=== PATIENT | female | born 1965 | race Caucasian/White ===

== ENCOUNTER → 2017-11-20 | Outpatient (CLI) | payer OTHER, SELFPAY | PROVIDERS: Visit Provider Nurse Practitioner Family | DX: Z79.899 Other long term (current) drug therapy (principal) | CPT/HCPCS: 80305 ==

== ENCOUNTER 2017-11-21 11:00 | Outpatient (RCR) | payer OTHER, SELFPAY | END 2017-11-21 23:59 | LOC: OT 11:00 | PROVIDERS: PCP Nurse Practitioner Family; Visit Provider Orthopaedic Surgery | DX: S46.311A Strain of muscle, fascia and tendon of triceps, right arm, initial encounter (principal); M65.341 Trigger finger, right ring finger; G56.01 Carpal tunnel syndrome, right upper limb | CPT/HCPCS: 97014; 97033; 97110; 97165; G0283 ==

== ENCOUNTER 2017-11-28 10:13 | Outpatient (RCR) | payer OTHER, SELFPAY | END 2017-11-28 23:59 | LOC: OT 10:13 | PROVIDERS: PCP Nurse Practitioner Family; Visit Provider Orthopaedic Surgery | DX: S46.311A Strain of muscle, fascia and tendon of triceps, right arm, initial encounter (principal); M65.341 Trigger finger, right ring finger; G56.01 Carpal tunnel syndrome, right upper limb ==

== ENCOUNTER → 2017-12-19 09:48 | Outpatient (CLI) | payer OTHER, SELFPAY | PROVIDERS: Visit Provider Nurse Practitioner Family | DX: N39.0 Urinary tract infection, site not specified (principal); R30.0 Dysuria | CPT/HCPCS: 87086 ==

== ENCOUNTER → 2017-12-20 09:48 | Outpatient (REF) | payer OTHER, SELFPAY | LOC: LAB 09:48 | PROVIDERS: Visit Provider Nurse Practitioner Family | DX: N39.0 Urinary tract infection, site not specified (principal) ==

== ENCOUNTER 2018-01-06 14:34 | Emergency (ER) | payer OTHER, SELFPAY ==
[2018-01-06 14:51] VITALS: BP 148/81; PULSE 72; RESP 20; TEMP 36.9; O2SAT 98; BMI 34.7
[2018-01-06 14:57] LABS: Apearance,Urine Clear (Clear); Color,Urine Yellow (Yellow); PH,Urine 5.5 (5.0-8.5)
[2018-01-06 14:58] LABS: Bilirubin,Urine Negative (Negative); Blood, Urine Negative (Negative); Glucose,Urine (UA) Negative (Negative); Ketones,Urine Negative (Negative); Protein,Urine Negative (Negative); UTC Leukocyte Esterase,Urine 1+ (Negative); UTC Nitrate,Urine Negative (Negative); Urobilinogen,Urine 0.2 EU/dl (0.2)
--- NOTE | 2018-01-06 15:12 | HMH.EDUTC ---
[facility] [place] Impression: UTI (urinary tract infection) Qualifiers: Urinary tract infection type: site unspecified Disposition: Home, Self-Care Condition on Discharge: Good Instructions: Urinary Tract Infection, DI for Urinary Tract Infection (UTI) Additional Instructions: Drink plenty of water and fluids Follow up with family doctor if no improvement or worsening of symptoms Return if needed If pain returns, fever greater than 102.0 or symptoms worsen go straight to ER Prescriptions: Phenazopyridine HCl [Pyridium] 100 mg PO TID #6 tab Sulfamethoxazole/Trimethoprim [Bactrim DS tablet] 1 each PO BID #20 tab Referrals: Neto Ferraro MD [Primary Care Provider] - Time of Disposition: 15:25 Medical Decision Making - Medical Records Medical records reviewed: Yes: I reviewed the patient's medical records. Vital Signs: 01/06/18 14:51 Temperature 98.4 F Temperature Source Temporal Artery Scan Pulse Rate [Right] 72 Respiratory Rate 20 Blood Pressure [Right Arm] 148/81 Blood Pressure Mean [Right Arm] 103 Blood Pressure Source [Right Arm] Automatic Cuff Blood Pressure Position [Right Arm] Sitting 02 Sat by Pulse Oximetry 98 Oxygen Delivery Method Room Air - Lab Data Lab Results 01/06/18 14:56: Urine Color Yellow, Urine Appearance Clear, Urine pH 5.5, Ur Specific [place] 1.010, Urine Protein Negative, Urine Glucose (UA) Negative, Urine Ketones Negative, Urine Blood Negative, Urine Nitrate Negative, Urine Bilirubin Negative, Urine Urobilinogen 0.2, Ur Leukocyte Esterase 1+ A - Robby Inquiry Pt receiving controlled substance: No Robby was queried for this patient: No [facility] [place] - General Stated complaint: left side and lower back pain,no ao Mode of Arrival: Ambulatory Source of Information: Patient Limitations: No Limitations Description of Symptoms (Recalled from Triage Doc. by RN): LEFT FLANK PAIN, NAUSEA X4 DAYS HEENT Symptoms (Recalled from RN notes): No Resp Symptoms (Recalled from RN notes): No Skin Symptoms (Recalled from RN notes): No MS Symptoms (Recalled from RN notes): No Functional Status (Recalled from RN notes): N - History of Present Illness Provider Complaint: Patient state that she was seen and treated 2 weeks ago for UTI but feels like she has not really got rid of it State that after she finished medication pain returned in left flank area and she is having burning again with urination State that she feels just like she did when she got diagnosed with UTI - Related Data Home Medications Medication Instructions Recorded Confirmed albuterol sulfate HFA 90 1 puff INHALATION Q6H 12/03/17 mcg/actuation aerosol inhaler aspirin 81 mg tablet,delayed 81 mg PO QDAY 12/03/17 release atorvastatin 40 mg tablet 40 mg PO QDAY 12/03/17 celecoxib 200 mg capsule 200 mg PO QDAY 12/03/17 diltiazem ER 240 mg capsule,24 240 mg PO ONCE 12/03/17 hr,extended release duloxetine 20 mg capsule,delayed 20 mg PO BID 12/03/17 release fluticasone 50 mcg/actuation nasal 50 mcg INTRANASAL ONCE 12/03/17 spray,suspension furosemide 20 mg tablet 20 mg PO BID tab 12/03/17 hydrochlorothiazide 25 mg tablet 25 mg PO BID tab 12/03/17 linaclotide 290 mcg capsule 290 mcg PO QDAY 12/03/17 lisinopril 20 mg tablet 20 mg PO QDAY 12/03/17 metoprolol tartrate 50 mg tablet 50 mg PO BID 12/03/17 omeprazole 40 mg capsule,delayed 40 mg PO BID cap 12/03/17 release spironolactone 25 mg tablet 25 mg PO BID 12/03/17 Previous Rx's Medication Instructions Recorded gabapentin 300 mg capsule 600 mg PO BID #60 cap 12/19/17 Phenazopyridine HCl [Pyridium] 100 mg PO TID #6 tab 01/06/18 Sulfamethoxazole/Trimethoprim 1 each PO BID #20 tab 01/06/18 [Bactrim DS tablet] Allergies Allergy/AdvReac Type Severity Reaction Status Date / Time ciprofloxacin [From [facility]] Allergy Unknown HIVES/RASH Verified 01/06/18 14:57 - Worker's Comp Is this a Worker's Comp case?: No
--- NOTE | 2018-01-06 15:21 | ED_ITS ---
[facility] [place] Impression: UTI (urinary tract infection) Qualifiers: Urinary tract infection type: site unspecified Disposition: Home, Self-Care Condition on Discharge: Good Instructions: Urinary Tract Infection, DI for Urinary Tract Infection (UTI) Additional Instructions: Drink plenty of water and fluids Follow up with family doctor if no improvement or worsening of symptoms Return if needed If pain returns, fever greater than 102.0 or symptoms worsen go straight to ER Prescriptions: Phenazopyridine HCl [Pyridium] 100 mg PO TID #6 tab Sulfamethoxazole/Trimethoprim [Bactrim DS tablet] 1 each PO BID #20 tab Referrals: Neto Ferraro MD [Primary Care Provider] - Time of Disposition: 15:25 Medical Decision Making - Medical Records Medical records reviewed: Yes: I reviewed the patient's medical records. Vital Signs: 01/06/18 14:51 Temperature 98.4 F Temperature Source Temporal Artery Scan Pulse Rate [Right] 72 Respiratory Rate 20 Blood Pressure [Right Arm] 148/81 Blood Pressure Mean [Right Arm] 103 Blood Pressure Source [Right Arm] Automatic Cuff Blood Pressure Position [Right Arm] Sitting 02 Sat by Pulse Oximetry 98 Oxygen Delivery Method Room Air - Lab Data Lab Results 01/06/18 14:56: Urine Color Yellow, Urine Appearance Clear, Urine pH 5.5, Ur Specific [place] 1.010, Urine Protein Negative, Urine Glucose (UA) Negative, Urine Ketones Negative, Urine Blood Negative, Urine Nitrate Negative, Urine Bilirubin Negative, Urine Urobilinogen 0.2, Ur Leukocyte Esterase 1+ A - Robby Inquiry Pt receiving controlled substance: No Robby was queried for this patient: No [facility] [place] - General Stated complaint: left side and lower back pain,no ao Mode of Arrival: Ambulatory Source of Information: Patient Limitations: No Limitations Description of Symptoms (Recalled from Triage Doc. by RN): LEFT FLANK PAIN, NAUSEA X4 DAYS HEENT Symptoms (Recalled from RN notes): No Resp Symptoms (Recalled from RN notes): No Skin Symptoms (Recalled from RN notes): No MS Symptoms (Recalled from RN notes): No Functional Status (Recalled from RN notes): N - History of Present Illness Provider Complaint: Patient state that she was seen and treated 2 weeks ago for UTI but feels like she has not really got rid of it State that after she finished medication pain returned in left flank area and she is having burning again with urination State that she feels just like she did when she got diagnosed with UTI - Related Data Home Medications Medication Instructions Recorded Confirmed albuterol sulfate HFA 90 1 puff INHALATION Q6H 12/03/17 mcg/actuation aerosol inhaler aspirin 81 mg tablet,delayed 81 mg PO QDAY 12/03/17 release atorvastatin 40 mg tablet 40 mg PO QDAY 12/03/17 celecoxib 200 mg capsule 200 mg PO QDAY 12/03/17 diltiazem ER 240 mg capsule,24 240 mg PO ONCE 12/03/17 hr,extended release duloxetine 20 mg capsule,delayed 20 mg PO BID 12/03/17 release fluticasone 50 mcg/actuation nasal 50 mcg INTRANASAL ONCE 12/03/17 spray,suspension furosemide 20 mg tablet 20 mg PO BID tab 12/03/17 hydrochlorothiazide 25 mg tablet 25 mg PO BID tab 12/03/17 linaclotide 290 mcg capsule 290 mcg PO QDAY 12/03/17 lisinopril 20 mg tablet 20 mg PO QDAY 12/03/17 metoprolol tartrate 50 mg tablet
[2018-01-06 15:44] VITALS: BP 148/81; PULSE 72; RESP 20; TEMP 36.9
== END 2018-01-06 15:45 | disposition home or self-care (01) ==
PROVIDERS: Emergency Provider Nurse Practitioner; Family Provider Internal Medicine; PCP Emergency Medicine
DX: N39.0 Urinary tract infection, site not specified (principal)
CPT/HCPCS: 81003; 99201

== ENCOUNTER 2018-01-13 14:21 | Emergency (ER) | payer OTHER, SELFPAY ==
[2018-01-13 14:22] VITALS: BP 150/84; PULSE 70; RESP 20; TEMP 36.8; O2SAT 97; BMI 33.3
--- NOTE | 2018-01-13 14:29 | XR_ITS ---
XR chest portable HISTORY: ITS.REASON: Chest Pain ORDERING PHYSICIAN: James Luna MD PATIENT AGE: 52 years COMPARISON: 08/27/2017 FINDINGS: The cardiomediastinal silhouette and pulmonary vascularity are within normal limits. The lungs are clear without infiltrates, suspicious nodules, or pleural effusions. No acute bony abnormalities. IMPRESSION: Negative chest, no acute finding
[2018-01-13 14:48] LABS: Basophils # 0.1 K/mm3 (0-0.2); Basophils % 0.7 % (0.1-2.0); Eosinophils # 0.2 K/mm3 (0.0-0.4); Eosinophils % 2.2 % (0.1-12.0); Hematocrit 43.3 % (37.0-47.0); Hemoglobin 14.5 g/dL (12.2-16.2); Lymphocytes # 2.4 K/mm3 (0.7-4.5); Lymphocytes % 31.6 K/mm3 (10-50); Mean Corpuscular HGB Conc 33.5 g/dL (31.8-35.4); Mean Corpuscular Hemoglobin 27.7 pg (27.0-31.2); Mean Corpuscular Volume 82.7 fl (81-99); Mean Platelet Volume 8.5 fl (7.4-10.4); Monocytes # 0.3 K/mm3 (0.1-1.0); Monocytes % 4.4 % (1.7-9.3); Neutrophils # 4.7 K/mm3 (1.8-7.8); Neutrophils % 61.1 % (37.0-80.0); Platelet Count 250 K/mm3 (142-424); Red Blood Count 5.24 M/mm3 (4.20-5.40); Red Cell Distribution Width 13.1 % (11.5-17.5); White Blood Count 7.7 K/mm3 (4.8-10.8)
--- NOTE | 2018-01-13 15:15 | HMH.EDGENADL ---
ED Disposition Clinical Impression: Chest pain Disposition: Admitted As Inpatient Condition on Discharge: Good Referrals: Neto Ferraro MD [Primary Care Provider] - - Critical Care Critical Care Time: No Attestation: On 01/13/18, the high probability of a clinically significant, sudden or life threatening deterioration of the following system(s) required my full and direct attention, intervention and personal management. The time I documented below is in addition to time spent performing reported procedures but includes the following listed in this critical care notation. Medical Decision Making - Medical Records MR Comment: [id number] taking the medical records patient has not had very many visits here with chest pain I discussed with her she states she is diabetic hypertensive hyperlipidemia obese and smokes. She did have a history of angiograms did have some blockage that was not amenable to treatment she denies any stenting she thinks this may have been just over 2 years ago. She states the breathing treatment helped her somewhat that she still has chest pressure have ordered some aspirin and nitroglycerin here and call out to Dr. Bills. It is a patient of Dr. Ferraro's as well Sanju does have a follow-up visit scheduled with her for some labs and testing. call out to Sanju. [phone] call out to Ronan. 1740 salma Stratton. Vital Signs: 01/13/18 14:22 01/13/18 15:57 Temperature 98.2 F Temperature Source Oral Pulse Rate 66 Pulse Rate [Right Radial] 70 Respiratory Rate 20 Blood Pressure [Right Arm] 150/84 Blood Pressure Mean [Right Arm] 106 Blood Pressure Source [Right Arm] Automatic Cuff Blood Pressure Position [Right Arm] Sitting 02 Sat by Pulse Oximetry 97 Oxygen Delivery Method Room Air - Lab Data Lab Results 01/13/18 14:35: WBC 7.7, RBC 5.24, Hgb 14.5, Hct 43.3, MCV 82.7, MCH 27.7, MCHC 33.5, RDW 13.1, Plt Count 250, MPV 8.5, Neut % (Auto) 61.1, Lymph % (Auto) 31.6, [place] % (Auto) 4.4, Eos % (Auto) 2.2, Baso % (Auto) 0.7, Neut # (Auto) 4.7, Lymph # (Auto) 2.4, [place] # (Auto) 0.3, Eos # (Auto) 0.2, Baso # (Auto) 0.1 01/13/18 14:35: Sodium 137, Potassium 4.0, Chloride 100, Carbon Dioxide 26, Anion Gap 15.0, BUN 14, Creatinine 1.12 H, Estimated Creat Clear 85, Estimated GFR 51 L, Est GFR ( Amer) 62, Glucose 135 H, Calcium 9.4, Total Bilirubin 0.4, AST 8 L, ALT 28, Alkaline Phosphatase 101, Total Creatine Kinase 68, CK-MB (CK-2) < 0.5, CK-MB (CK-2) Rel Index 0.7, Troponin I < 0.02, Total Protein 7.9, Albumin 3.9, Globulin 4.0 H, Albumin/Globulin Ratio 1.0 L 01/13/18 : B-Natriuretic Peptide < 5 Result diagrams: 01/13/18 14:35 01/13/18 14:35 Orders (Tests/Meds): ED MEDICATIONS Generic Name Dose Route Start Last Admin Trade Name Freq PRN Reason Stop Dose Admin Acetaminophen 650 mg 01/13/18 17:37 Acetaminophen 325mg Tab PO 02/12/18 17:36 Q4HP PRN As Needed for Fever or Pain Sodium Chloride 1,000 mls @ 50 mls/hr 01/13/18 17:45 Sod Chlor 0.9% 1000ml Bag IV 02/12/18 17:44 .Q20H BETSY Morphine Sulfate 4 mg 01/13/18 17:37 Morphine 2mg/Ml Syringe IV 02/12/18 17:36 Q4HP PRN Pain Nitroglycerin 0.4 mg 01/13/18 17:08 Nitrostat 0.4mg Sl Tablet SL 02/12/18 17:07 Q5MINP PRN Chest Pain Ondansetron HCl 4 mg 01/13/18 17:37 Zofran 4mg/2ml Vial IV 02/12/18 17:36 Q8HP PRN Nausea Discontinued Medications Generic Name Dose Route Start Last Admin Trade Name Freq PRN Reason Stop Dose Admin Albuterol/Ipratropium 3 ml 01/13/18 15:18 01/13/18 15:56 Duoneb 3ml Neb IH 01/13/18 15:19 3 ml ONCE ONE Administration Aspirin 324 mg 01/13/18 17:08 01/13/18 17:14 Aspirin 81mg Chewable Tablet PO 01/13/18 17:09 243 mg ONCE ONE Administration ORDERS Category Date Time Status Basic Metabolic Panel [facility] Lab 01/14/18 06:00 Ordered Complete Blood Count Auto Diff AMLAB Lab 01/14/18 0
[2018-01-13 15:18] LABS: Alanine Aminotransferase 28 U/L (12-78); Albumin Level 3.9 gm/dL (3.4-5.0); Alkaline Phosphatase 101 U/L (46-116); Aspartate Amino Transferase 8 U/L (15-37); Bilirubin,Total 0.4 mg/dL (0.2-1.0); Blood Urea Nitrogen 14 mg/dL (7-18); CKMB Relative Index 0.7 U/L (0-4.0); Calcium 9.4 mg/dL (8.5-10.1); Carbon Dioxide 26 mmol/L (21.0-32.0); Chloride 100 mmol/L (98-107); Creatine Kinase 68 U/L (26-192); Creatine Kinase MB < 0.5 mg/ml (0.0-3.6); Creatinine Clearance Estimated 85 mL/min (0-300); Creatinine,Serum 1.12 mg/dL (0.55-1.02); Estimated Glomerular Filt Rate 51 ml/min (>60); GFR (African American) 62 ML/MIN (>60); Glucose 135 mg/dL (74-106); Sodium 137 mmol/L (136-145); Total Protein,Serum 7.9 gm/dL (6.4-8.2); Troponin I < 0.02 ng/ml (0.00-0.06)
--- NOTE | 2018-01-13 15:18 | ED_ITS ---
ED Disposition Clinical Impression: Chest pain Disposition: Admitted As Inpatient Condition on Discharge: Good Referrals: Neto Ferraro MD [Primary Care Provider] - - Critical Care Critical Care Time: No Attestation: On 01/13/18, the high probability of a clinically significant, sudden or life threatening deterioration of the following system(s) required my full and direct attention, intervention and personal management. The time I documented below is in addition to time spent performing reported procedures but includes the following listed in this critical care notation. Medical Decision Making - Medical Records MR Comment: [id number] taking the medical records patient has not had very many visits here with chest pain I discussed with her she states she is diabetic hypertensive hyperlipidemia obese and smokes. She did have a history of angiograms did have some blockage that was not amenable to treatment she denies any stenting she thinks this may have been just over 2 years ago. She states the breathing treatment helped her somewhat that she still has chest pressure have ordered some aspirin and nitroglycerin here and call out to Dr. Bills. It is a patient of Dr. Ferraro's as well Sanju does have a follow-up visit scheduled with her for some labs and testing. call out to Sanju. 1731 call out to Ronan. 1740 salma Stratton. Vital Signs: 01/13/18 14:22 01/13/18 15:57 Temperature 98.2 F Temperature Source Oral Pulse Rate 66 Pulse Rate [Right Radial] 70 Respiratory Rate 20 Blood Pressure [Right Arm] 150/84 Blood Pressure Mean [Right Arm] 106 Blood Pressure Source [Right Arm] Automatic Cuff Blood Pressure Position [Right Arm] Sitting 02 Sat by Pulse Oximetry 97 Oxygen Delivery Method Room Air - Lab Data Lab Results 01/13/18 14:35: WBC 7.7, RBC 5.24, Hgb 14.5, Hct 43.3, MCV 82.7, MCH 27.7, MCHC 33.5, RDW 13.1, Plt Count 250, MPV 8.5, Neut % (Auto) 61.1, Lymph % (Auto) 31.6 , [place] % (Auto) 4.4, Eos % (Auto) 2.2, Baso % (Auto) 0.7, Neut # (Auto) 4.7, Lymph # (Auto) 2.4, [place] # (Auto) 0.3, Eos # (Auto) 0.2, Baso # (Auto) 0.1 01/13/18 14:35: Sodium 137, Potassium 4.0, Chloride 100, Carbon Dioxide 26, Anion Gap 15.0, BUN 14, Creatinine 1.12 H, Estimated Creat Clear 85, Estimated GFR 51 L, Est GFR ( Amer) 62, Glucose 135 H, Calcium 9.4, Total Bilirubin 0.4, AST 8 L, ALT 28, Alkaline Phosphatase 101, Total Creatine Kinase 68, CK-MB (CK-2) < 0.5, CK-MB (CK-2) Rel Index 0.7, Troponin I < 0.02, Total Protein 7.9, Albumin 3.9, Globulin 4.0 H, Albumin/Globulin Ratio 1.0 L 01/13/18 : B-Natriuretic Peptide < 5 Result diagrams: 01/13/18 14:35 01/13/18 14:35 Orders (Tests/Meds): ED MEDICATIONS Generic Name Dose Route Start Last Admin Trade Name Freq PRN Reason Stop Dose Admin Acetaminophen 650 mg 01/13/18 17:37 Acetaminophen 325mg Tab PO 02/12/18 17:36 Q4HP PRN As Needed for Fever or Pain Sodium Chloride 1,000 mls @ 50 mls/hr 01/13/18 17:45 Sod Chlor 0.9% 1000ml Bag IV 02/12/18 17:44 .Q20H BETSY Morphine Sulfate 4 mg 01/13/18 17:37 Morphine 2mg/Ml Syringe IV 02/12/18 17:36 Q4HP PRN Pain Nitroglycerin 0.4 mg 01/13/18 17:08 Nitrostat 0.4mg Sl Tablet SL 02/12/18 17:07 Q5MINP PRN Chest Pain Ondansetron HCl 4 mg 01/13/18 17:37 Zofran 4mg/2ml V
[2018-01-13 15:57] VITALS: PULSE 62; PULSE 66
[2018-01-13 18:22] LABS: Troponin I < 0.02 ng/ml (0.00-0.06)
[2018-01-13 18:53] VITALS: BP 126/82; PULSE 82; RESP 20; TEMP 36.7; O2SAT 100
== END 2018-01-13 19:01 | disposition home or self-care (01) ==
PROVIDERS: Emergency Provider Emergency Medicine; Family Provider Internal Medicine; PCP Emergency Medicine
DX: R07.9 Chest pain, unspecified (principal); E11.9 Type 2 diabetes mellitus without complications; I10 Essential (primary) hypertension; E78.5 Hyperlipidemia, unspecified; E66.9 Obesity, unspecified; Z68.33 Body mass index [BMI] 33.0-33.9, adult; F17.210 Nicotine dependence, cigarettes, uncomplicated; J44.9 Chronic obstructive pulmonary disease, unspecified; I50.9 Heart failure, unspecified; Z79.899 Other long term (current) drug therapy; Z88.1 Allergy status to other antibiotic agents
CPT/HCPCS: 71045; 80053; 82550; 82553; 83880; 84484; 85025; 93005; 93041; 99283

== ENCOUNTER 2018-02-04 17:09 | Emergency (ER) | payer OTHER, SELFPAY ==
[2018-02-04 17:20] VITALS: BP 146/87; PULSE 59; RESP 18; TEMP 36.5; O2SAT 97; BMI 33.3
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
[2018-02-04 18:33] VITALS: BP 138/90; PULSE 86; RESP 20; TEMP 36.9; O2SAT 96
== END 2018-02-04 18:35 | disposition home or self-care (01) ==
PROVIDERS: Emergency Provider Emergency Medicine; Family Provider Internal Medicine; PCP Nurse Practitioner Family
DX: S30.0XXA Contusion of lower back and pelvis, initial encounter (principal); V44.6XXA Car passenger injured in collision with heavy transport vehicle or bus in traffic accident, initial encounter; Y92.411 Interstate highway as the place of occurrence of the external cause; R51 Headache; Z88.0 Allergy status to penicillin; J44.9 Chronic obstructive pulmonary disease, unspecified; I10 Essential (primary) hypertension
CPT/HCPCS: 72110; 73502; 99282

== ENCOUNTER → 2018-03-04 11:18 | Outpatient (CLI) | payer OTHER, SELFPAY ==
[2018-03-04 13:45] LABS: Basophils % 0.6 % (0.1-2.0); Eosinophils # 0.2 K/mm3 (0.0-0.4); Eosinophils % 2.5 % (0.1-12.0); Hemoglobin 13.8 g/dL (12.2-16.2); Lymphocytes # 2.5 K/mm3 (0.7-4.5); Lymphocytes % 36.5 K/mm3 (10-50); Mean Corpuscular HGB Conc 32.9 g/dL (31.8-35.4); Mean Corpuscular Hemoglobin 28.3 pg (27.0-31.2); Mean Corpuscular Volume 86.1 fl (81-99); Mean Platelet Volume 8.7 fl (7.4-10.4); Monocytes # 0.3 K/mm3 (0.1-1.0); Monocytes % 4.6 % (1.7-9.3); Neutrophils # 3.7 K/mm3 (1.8-7.8); Neutrophils % 55.7 % (37.0-80.0); Platelet Count 214 K/mm3 (142-424); Red Blood Count 4.88 M/mm3 (4.20-5.40); Red Cell Distribution Width 13.3 % (11.5-17.5); White Blood Count 6.7 K/mm3 (4.8-10.8)
[2018-03-04 18:53] LABS: Alanine Aminotransferase 21 U/L (12-78); Albumin Level 3.9 gm/dL (3.4-5.0); Alkaline Phosphatase 101 U/L (46-116); Anion Gap 9.9 mEq/L (5-15); Aspartate Amino Transferase 11 U/L (15-37); Bilirubin,Direct 0.1 mg/dL (0.0-0.2); Bilirubin,Total 0.4 mg/dL (0.2-1.0); Blood Urea Nitrogen 13 mg/dL (7-18); Carbon Dioxide 31 mmol/L (21.0-32.0); Chloride 103 mmol/L (98-107); Chol/HDL Ratio 6.5 (1-3.5); Cholesterol 196 mg/dL (140-200); Creatinine,Serum 0.91 mg/dL (0.55-1.02); Estimated Glomerular Filt Rate 65 ml/min (>60); Free Thyroxine Index 2.5 ug/dL (5.93-13.13); GFR (African American) 79 ML/MIN (>60); Glucose 110 mg/dL (74-106); HDL Cholesterol 30 mg/dL (29-89); LDL Cholesterol 101 mg/dL (0-130); Potassium 4.9 mmoL/L (3.5-5.1); Sodium 139 mmol/L (136-145); T4 (Thyroxine) 8.2 ug/dl (4.7-13.3); Thyroid Stimulating Hormone 2.34 uIU/ml (0.358-3.740); Total Protein,Serum 7.1 gm/dL (6.4-8.2); Triglycerides 326 mg/dL (30-200); Triiodothryronine (T3) Uptake 30 % (31-39); VLDL Cholesterol 65 mg/dL (0-40)
== END ==
PROVIDERS: Physician Assistant; PCP Emergency Medicine; Visit Provider Internal Medicine
DX: J44.9 Chronic obstructive pulmonary disease, unspecified (principal); I10 Essential (primary) hypertension; K21.9 Gastro-esophageal reflux disease without esophagitis; R07.89 Other chest pain; R00.2 Palpitations; R42 Dizziness and giddiness; Z72.0 Tobacco use; R06.02 Shortness of breath; G47.33 Obstructive sleep apnea (adult) (pediatric)
CPT/HCPCS: 36415; 80048; 80061; 80076; 84436; 84443; 84479; 85025; 95806

== ENCOUNTER → 2018-06-05 10:38 | Outpatient (REF) | payer MEDICARE, OTHER, SELFPAY ==
[2018-06-05 17:04] LABS: Basophils % 0.7 % (0.1-2.0); Eosinophils # 0.2 K/mm3 (0.0-0.4); Eosinophils % 3.1 % (0.1-12.0); Hematocrit 41.9 % (37.0-47.0); Hemoglobin 13.6 g/dL (12.2-16.2); Lymphocytes % 33.5 K/mm3 (10-50); Mean Corpuscular HGB Conc 32.5 g/dL (31.8-35.4); Mean Corpuscular Hemoglobin 27.8 pg (27.0-31.2); Mean Corpuscular Volume 85.4 fl (81-99); Mean Platelet Volume 9.4 fl (7.4-10.4); Monocytes # 0.3 K/mm3 (0.1-1.0); Monocytes % 4.6 % (1.7-9.3); Neutrophils # 3.5 K/mm3 (1.8-7.8); Neutrophils % 58.1 % (37.0-80.0); Platelet Count 198 K/mm3 (142-424); Red Blood Count 4.91 M/mm3 (4.20-5.40); Red Cell Distribution Width 13.2 % (11.5-17.5); White Blood Count 5.9 K/mm3 (4.8-10.8)
[2018-06-05 17:37] LABS: Alanine Aminotransferase 20 U/L (12-78); Albumin Level 3.7 gm/dL (3.4-5.0); Albumin/Globulin Ratio 1.2 (1.1-1.8); Alkaline Phosphatase 93 U/L (46-116); Anion Gap 15.2 mEq/L (5-15); Aspartate Amino Transferase 12 U/L (15-37); Bilirubin,Total 0.3 mg/dL (0.2-1.0); Blood Urea Nitrogen 12 mg/dL (7-18); Calcium 8.8 mg/dL (8.5-10.1); Carbon Dioxide 23 mmol/L (21.0-32.0); Chloride 105 mmol/L (98-107); Cholesterol 181 mg/dL (140-200); Creatinine,Serum 0.93 mg/dL (0.55-1.02); Estimated Glomerular Filt Rate 64 ml/min (>60); GFR (African American) 77 ML/MIN (>60); Glucose 135 mg/dL (74-106); HDL Cholesterol 26 mg/dL (29-89); Potassium 4.2 mmoL/L (3.5-5.1); Sodium 139 mmol/L (136-145); T4 (Thyroxine) 7.2 ug/dl (4.7-13.3); Thyroid Stimulating Hormone 1.73 uIU/ml (0.358-3.740); Total Protein,Serum 6.7 gm/dL (6.4-8.2); Triglycerides 457 mg/dL (30-200)
[2018-06-07 18:04] LABS: Vitamin D 25 Hydroxy 23.1 ng/mL (30.0-100.0)
== END ==
LOC: LAB 10:38
PROVIDERS: Visit Provider Physician Assistant
DX: M79.7 Fibromyalgia (principal); I10 Essential (primary) hypertension
CPT/HCPCS: 80053; 80061; 82652; 84436; 84443; 85025

== ENCOUNTER → 2018-07-10 11:02 | Outpatient (CLI) | payer MEDICARE, OTHER, SELFPAY ==
--- NOTE | 2018-07-10 11:48 | XR_ITS ---
EXAM: XR lumbar spine 6V w bending HISTORY: ITS.REASON: back pain ORDERING PHYSICIAN: Miguel Herron PATIENT AGE: 53 years COMPARISON: 02/04/2018 FINDINGS: Normal alignment. No fracture or dislocation. No lytic or blastic change. There are small endplate osteophytes from L2 to S1. The disc spaces are well-preserved. Flexion and extension views show no abnormal subluxation. IMPRESSION: 1. No acute finding. 2. Scattered small endplate osteophytes. 3. No abnormal subluxation in flexion or extension
[2018-07-10 14:26] LABS: Amphetamine/Metha Screen,Urine Negative ng/mL (<1000); Barbiturates Screen,Urine Negative ng/mL (<200); Benzodiazepines Screen,Urine Negative ng/mL (<200); Cannabinoid Screen,Urine Negative ng/mL (<50); Cocaine Screen,Urine Negative ng/mL (<300); Methadone Screen,Urine Negative ng/mL (<300); Opiate Screen,Urine Negative ng/mL (<300); Phencyclidine Screen,Urine Negative ng/mL (<25)
== END ==
LOC: LAB 11:05 → RAD 11:51
PROVIDERS: PCP Nurse Practitioner Family; Visit Provider Nurse Practitioner Family
DX: M79.7 Fibromyalgia (principal); R10.9 Unspecified abdominal pain
CPT/HCPCS: 72114; 80305

== ENCOUNTER → 2018-07-17 13:55 | Outpatient (CLI) | payer MEDICARE, OTHER, SELFPAY ==
--- NOTE | 2018-07-17 13:56 | CT_ITS ---
CT abdomen pelvis wo con CLINICAL INDICATION: Epigastric pain, mid abdominal pain ITS.REASON: abd pain ORDERING PHYSICIAN: Miguel Herron PATIENT AGE: 53 years COMPARISON: None TECHNIQUE: Axial images obtained with sagittal and coronal reformats. All CT scans at the facility use one or more dose reduction, viz: automated exposure control, ma/kV adjustment per patient size (including targeted exams where dose is matched to indication, i.e. head), or iterative reconstruction technique. PROCEDURE: Oral Contrast: None IV Contrast: None . FINDINGS: No acute finding in the lung bases. There is fatty liver infiltration. The spleen, adrenal glands, pancreas, gallbladder, and kidneys have an unremarkable unenhanced CT appearance. Calcific densities are present anterior to the right psoas muscle consistent with phleboliths. Prior reported appendectomy. No intestinal obstruction or free air is evident scattered small nodes are present in the mesentery's. Prior hysterectomy. No pelvic mass abnormal fluid collection or focal inflammatory change evident within the pelvis. There are small bilateral inguinal hernias containing fat. No acute bony anomalies. IMPRESSION: 1. No acute abdominal or pelvic findings. 2. Fatty liver. 3. Small bilateral inguinal hernias containing fat
== END ==
LOC: RAD 13:55
PROVIDERS: Family Provider Internal Medicine; PCP Nurse Practitioner Family; Visit Provider Nurse Practitioner Family
DX: R10.9 Unspecified abdominal pain (principal)
CPT/HCPCS: 74176

== ENCOUNTER → 2018-08-15 15:26 | Outpatient (REF) | payer MEDICARE, OTHER, SELFPAY ==
[2018-08-15 18:27] LABS: Amphetamine/Metha Screen,Urine Negative ng/mL (<1000); Barbiturates Screen,Urine Negative ng/mL (<200); Benzodiazepines Screen,Urine Positive ng/mL (<200); Cannabinoid Screen,Urine Negative ng/mL (<50); Cocaine Screen,Urine Negative ng/mL (<300); Methadone Screen,Urine Negative ng/mL (<300); Opiate Screen,Urine Negative ng/mL (<300); Phencyclidine Screen,Urine Negative ng/mL (<25)
[2018-09-13 11:06] LABS: Alprazolam NEGATIVE; Benzodiazepines NEGATIVE; Clonazepam NEGATIVE; Flurazepam NEGATIVE; Lorazepam NEGATIVE; Midazolam NEGATIVE; Temazepam NEGATIVE; Triazolam NEGATIVE
== END ==
LOC: LAB 15:26
PROVIDERS: Visit Provider Nurse Practitioner Family
DX: M79.7 Fibromyalgia (principal); Z79.899 Other long term (current) drug therapy
CPT/HCPCS: 80305; 80346

== ENCOUNTER → 2018-08-16 09:58 | Outpatient (CLI) | payer MEDICARE, OTHER, SELFPAY | PROVIDERS: Visit Provider Nurse Practitioner Family | DX: F41.9 Anxiety disorder, unspecified (principal) | CPT/HCPCS: 80346 ==

== ENCOUNTER → 2018-10-08 18:47 | Outpatient (CLI) | payer MEDICARE, OTHER, SELFPAY ==
[2018-10-08 19:49] LABS: Amphetamine/Metha Screen,Urine Negative ng/mL (<1000); Barbiturates Screen,Urine Negative ng/mL (<200); Benzodiazepines Screen,Urine Negative ng/mL (<200); Cannabinoid Screen,Urine Negative ng/mL (<50); Cocaine Screen,Urine Negative ng/mL (<300); Methadone Screen,Urine Negative ng/mL (<300); Opiate Screen,Urine Negative ng/mL (<300); Phencyclidine Screen,Urine Negative ng/mL (<25)
== END ==
LOC: LAB 10-09 10:29 → LAB.DROPOF 10-09 11:21
PROVIDERS: Visit Provider Nurse Practitioner Family
DX: Z79.899 Other long term (current) drug therapy (principal)
CPT/HCPCS: 80305

== ENCOUNTER → 2018-11-13 17:35 | Outpatient (CLI) | payer MEDICARE, OTHER, SELFPAY ==
[2018-11-13 19:45] LABS: Amphetamine/Metha Screen,Urine Negative ng/mL (<1000); Barbiturates Screen,Urine Negative ng/mL (<200); Benzodiazepines Screen,Urine Negative ng/mL (<200); Cannabinoid Screen,Urine Negative ng/mL (<50); Cocaine Screen,Urine Negative ng/mL (<300); Methadone Screen,Urine Negative ng/mL (<300); Opiate Screen,Urine Negative ng/mL (<300); Phencyclidine Screen,Urine Negative ng/mL (<25)
== END ==
PROVIDERS: Visit Provider Nurse Practitioner Family
DX: M79.7 Fibromyalgia (principal)
CPT/HCPCS: 80305

== ENCOUNTER → 2019-01-09 18:15 | Outpatient (CLI) | payer MEDICARE, OTHER, SELFPAY ==
[2019-01-09 20:26] LABS: Amphetamine/Metha Screen,Urine Negative ng/mL (<1000); Barbiturates Screen,Urine Negative ng/mL (<200); Benzodiazepines Screen,Urine Negative ng/mL (<200); Cannabinoid Screen,Urine Negative ng/mL (<50); Cocaine Screen,Urine Negative ng/mL (<300); Methadone Screen,Urine Negative ng/mL (<300); Opiate Screen,Urine Negative ng/mL (<300); Phencyclidine Screen,Urine Negative ng/mL (<25)
== END ==
PROVIDERS: Visit Provider Nurse Practitioner Family
DX: Z79.899 Other long term (current) drug therapy (principal)
CPT/HCPCS: 80305

== ENCOUNTER → 2019-01-16 09:37 | Outpatient (CLI) | payer MEDICARE, OTHER, SELFPAY ==
--- NOTE | 2019-01-16 09:39 | MR_ITS ---
MR head/brain wo con HISTORY: Severe daily headache ITS.REASON: migraine/neck pain ORDERING PHYSICIAN: Bárbara Keating MD PATIENT AGE: 53 years Comparison: None TECHNIQUE: Standard multiplanar multiecho sequences are performed without contrast. FINDINGS: No midline shift, mass effect, intracranial hemorrhage, or hydrocephalus is evident. The cerebellopontine angles, cerebellum, and brainstem are unremarkable. There is normal house-white matter differentiation. Unremarkable right matter signal intensity. There is a partially the sella is a normal variant. The optic chiasm corpus callosum and craniocervical junction have an unremarkable appearance. No mastoid effusion or sinus air-fluid level. IMPRESSION: Negative MRI the brain without contrast, no acute finding
--- NOTE | 2019-01-16 10:26 | XR_ITS ---
XR cervical spine w flex/ext CLINICAL INDICATION: ITS.REASON: neck pain/migraine ORDERING PHYSICIAN: Bárbara Keating MD PATIENT AGE: 53 years Comparison: None FINDINGS: AP, lateral, oblique, open-mouth, and flexion-extension views are obtained. There is reversal cervical lordosis at C5-C6 level. Degenerative disc disease is present at C5-C6 and C6-C7 with mild bilateral foraminal narrowing at C6-C7 from uncovertebral hypertrophy. Flexion and extension views show no abnormal subluxation in flexion or extension. There is minimal fixed anterior subluxation of C5 on C6 of 3 mm. IMPRESSION: 1. Degenerative disc disease C5-C6 and C6-C7 with reversal lordosis and minimal anterolisthesis at C5-C6 2. No abnormal subluxation on flexion or extension
== END ==
PROVIDERS: PCP Nurse Practitioner Family; Visit Provider Specialist
DX: G89.29 Other chronic pain (principal); M54.2 Cervicalgia; R51 Headache
CPT/HCPCS: 70551; 72052

== ENCOUNTER → 2019-03-31 14:34 | Outpatient (CLI) | payer MEDICARE, OTHER, SELFPAY ==
--- NOTE | 2019-03-31 14:35 | CA_ITS ---
PROCEDURE: 2-D M-mode and color Doppler study INDICATIONS FOR THE TEST: Chest pain COPDX Heart Murmur Tobacco SmokingX Palpitations Fatigue Syncope Edema HypertensionXDiabetes Mellitus Rheumatic Fever SOBXDOEXObesityXHyperlipidemiaX Family History HD Additional History PATIENT INFORMATION HEIGHT: 65 WEIGHT:215 GENDER: Female B/P:138/92 2-D/M-MODE INTERPRETATION: 2-D MEASUREMENTS OBSERVED VALUES IN CMS Right Ventricular Dimension (RVDd) 2.2 Interventricular Septum (Thickness)(IVsd) .8 Left Ventricular Internal Dimensions(LVIDd) 4.7 Left Ventricular Posterior Wall (Thickness)(LVPWd) 1.0 Aortic Root 3.6 Aortic Cusp Separation 1.6 Left Atrial Dimensions (LAD) 2.6 2D 1. Left atrium is qualitatively mildly enlarged, left ventricle is normal size, mild concentric left ventricular hypertrophy, visually estimated ejection fraction 55% with no regional wall motion abnormality, endocardial surface of poorly visualized. 2. The right atrium and right ventricle are mildly enlarged with normal contractility. 3. The aortic valve is minimally thickened and fibrosed. 4. The mitral and tricuspid valve are grossly normal. 5. The pulmonic valve is poorly visualized. 6. No significant pericardial effusion noted. DOPPLER INTERROGATION: Doppler interrogation of the aortic, mitral and tricuspid valvular presence of mild mitral and tricuspid regurgitation, tricuspid regurgitation jet velocity is inadequate for calculation of the right ventricular systolic pressure, grade 1 diastolic dysfunction seen without tissue Doppler evidence of raised left atrial pressure. CONCLUSION: 1. Technically difficult study because of the patient's factor and poor acoustic windows 2. Mildly enlarged left atrium, normal left ventricular size, mild concentric left ventricular hypertrophy, visually estimated ejection fraction 55% with no regional wall motion abnormality, grade 1 diastolic dysfunction seen without tissue Doppler evidence of raised left atrial pressure. 3. Mildly enlarged right ventricle with normal contractility. 4. Mild mitral and tricuspid regurgitation 5. No significant pericardial effusion noted.
== END ==
PROVIDERS: PCP Nurse Practitioner Family; Visit Provider Nurse Practitioner Family
DX: G47.33 Obstructive sleep apnea (adult) (pediatric) (principal); I10 Essential (primary) hypertension; J44.9 Chronic obstructive pulmonary disease, unspecified; K21.9 Gastro-esophageal reflux disease without esophagitis; R06.02 Shortness of breath; R07.89 Other chest pain; Z72.0 Tobacco use
CPT/HCPCS: 93306

== ENCOUNTER → 2019-04-29 09:25 | Outpatient (CLI) | payer MEDICARE, OTHER, SELFPAY ==
[2019-04-29 13:34] LABS: Anion Gap 14.3 mEq/L (5-15); Blood Urea Nitrogen 10 mg/dL (7-18); Calcium 8.8 mg/dL (8.5-10.1); Carbon Dioxide 25 mmol/L (21.0-32.0); Chloride 107 mmol/L (98-107); Creatinine,Serum 0.87 mg/dL (0.55-1.02); Estimated Glomerular Filt Rate 68 ml/min (>60); GFR (African American) 83 ML/MIN (>60); Glucose 111 mg/dL (74-106); Potassium 4.3 mmoL/L (3.5-5.1); Sodium 142 mmol/L (136-145)
== END ==
PROVIDERS: Visit Provider Urology
DX: E78.2 Mixed hyperlipidemia (principal); I10 Essential (primary) hypertension; R07.89 Other chest pain; R06.02 Shortness of breath
CPT/HCPCS: 80048; 83880

== ENCOUNTER → 2019-11-12 17:23 | Outpatient (CLI) | payer MEDICARE, OTHER, SELFPAY ==
[2019-11-12 22:19] LABS: Amphetamine/Metha Screen,Urine Negative ng/mL (<1000); Barbiturates Screen,Urine Negative ng/mL (<200); Benzodiazepines Screen,Urine Negative ng/mL (<200); Cannabinoid Screen,Urine Negative ng/mL (<50); Cocaine Screen,Urine Negative ng/mL (<300); Methadone Screen,Urine Negative ng/mL (<300); Opiate Screen,Urine Negative ng/mL (<300); Phencyclidine Screen,Urine Negative ng/mL (<25)
== END ==
PROVIDERS: Visit Provider Nurse Practitioner Family
DX: M79.7 Fibromyalgia (principal)
CPT/HCPCS: 80305

== ENCOUNTER → 2019-12-10 17:01 | Outpatient (CLI) | payer MEDICARE, OTHER, SELFPAY ==
[2019-12-10 18:52] LABS: Amphetamine/Metha Screen,Urine Negative ng/mL (<1000); Barbiturates Screen,Urine Negative ng/mL (<200); Benzodiazepines Screen,Urine Negative ng/mL (<200); Cannabinoid Screen,Urine Negative ng/mL (<50); Cocaine Screen,Urine Negative ng/mL (<300); Methadone Screen,Urine Negative ng/mL (<300); Opiate Screen,Urine Negative ng/mL (<300); Phencyclidine Screen,Urine Negative ng/mL (<25)
== END ==
PROVIDERS: Visit Provider Nurse Practitioner Family
DX: M79.7 Fibromyalgia (principal)
CPT/HCPCS: 80305

== ENCOUNTER → 2020-02-11 09:44 | Outpatient (CLI) | payer MEDICARE, OTHER, SELFPAY ==
[2020-02-11 10:24] LABS: Basophils % 0.6 % (0.1-2.0); Eosinophils # 0.2 K/mm3 (0.0-0.4); Eosinophils % 3.1 % (0.1-12.0); Hemoglobin 13.8 g/dL (12.2-16.2); Lymphocytes # 2.6 K/mm3 (0.7-4.5); Lymphocytes % 38.7 % (10-50); Mean Corpuscular HGB Conc 33.8 g/dL (31.8-35.4); Mean Corpuscular Hemoglobin 28.7 pg (27.0-31.2); Mean Corpuscular Volume 84.9 fl (81-99); Mean Platelet Volume 8.7 fl (7.4-10.4); Monocytes # 0.3 K/mm3 (0.1-1.0); Monocytes % 4.3 % (1.7-9.3); Neutrophils # 3.6 K/mm3 (1.8-7.8); Neutrophils % 53.3 % (37.0-80.0); Platelet Count 202 K/mm3 (142-424); Red Blood Count 4.82 M/mm3 (4.20-5.40); Red Cell Distribution Width 12.8 % (11.5-17.5); White Blood Count 6.7 K/mm3 (4.8-10.8)
[2020-02-11 11:34] LABS: Alanine Aminotransferase 18 U/L (12-78); Albumin Level 4.2 g/dl (3.5-5.0); Albumin/Globulin Ratio 1.6 (1.1-1.8); Alkaline Phosphatase 77 U/L (38-126); Anion Gap 15.5 mEq/L (5-15); Aspartate Amino Transferase 20 U/L (14-36); Bilirubin,Total 0.5 mg/dl (0.2-1.3); Blood Urea Nitrogen 11 mg/dl (7-17); Calcium 10.2 mg/dl (8.4-10.2); Carbon Dioxide 26 mmol/L (22.0-30.0); Chloride 104 mmol/L (98-107); Estimated Glomerular Filt Rate 65 ml/min (>60); GFR (African American) 79 ML/MIN (>60); Globulin 2.6 g/dL (1.3-3.2); Glucose 100 mg/dl (74-100); Potassium 4.5 mmoL/L (3.5-5.1); Sodium 141 mmol/L (136-145); Total Protein,Serum 6.8 g/dl (6.3-8.2)
== END ==
PROVIDERS: Visit Provider Internal Medicine Medical Oncology
DX: C43.9 Malignant melanoma of skin, unspecified (principal)
CPT/HCPCS: 36415; 80053; 85025

== ENCOUNTER → 2020-02-26 12:38 | Outpatient (CLI) | payer MEDICARE, OTHER, SELFPAY ==
--- NOTE | 2020-02-26 12:42 | MM_ITS ---
PROCEDURE: MM DIG SCREENING MAMM BI W/CAD Bilateral DIGITAL BREAST TOMOSYNTHESIS INCLUDED . Patient Age:54Y CLINICAL INDICATION: SCREENING. No hormones. Patient feels the area right breast behind nipple with laying down. Noncontributory family history. 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 R2 CAD reviewed. BilateralDIGITAL BREAST TOMOSYNTHESIS INCLUDED FINDINGS: Low-density breast bilaterally. Diffuse generalized fatty replacement. Minimal residual fibroglandular elements.. No dominant or suspicious mass in either breast but no new areas of significant concern.. CAD computer review highlights no areas of concern either.. No mass lesions nor architectural distortion either breast Left breast: No new areas of concern. stable small singular punctate calcification left breast again noted and unchanged. Right breast. No areas of significant concern. Noting history above, particular attention is directed to the retroareolar region right breast. This area unremarkable and unchanged.. No mass nor architectural distortion,.. A small round singular punctate benign-appearing calcification has developed medial right breast but can be followed safely a given its benign singular appearance. IMPRESSION: No malignancy evident radiographically. No new areas of significant concern Low-density breast/generalized fatty replacement Bilateral follow-up 1 year recommended , and encourage. BI-RAD Category: 2 Benign Finding(s) routine screening. FOLLOW-UP: 1YR 1 Year Follow-up (A letter has been sent to the patient regarding results of the study.) Dictated by: Steven Briceño MD 02/29/2020 10:59 Electronically signed by Steven Briceño MD in [place] 02/29/2020 10:59
== END ==
PROVIDERS: PCP Nurse Practitioner Family; Visit Provider Internal Medicine Medical Oncology
DX: Z12.31 Encounter for screening mammogram for malignant neoplasm of breast (principal)
CPT/HCPCS: 77063; 77067

== ENCOUNTER 2020-12-15 18:59 | Emergency (ER) | payer MEDICARE, OTHER, SELFPAY ==
[2020-12-15 19:20] VITALS: BP 137/93; PULSE 94; RESP 19; TEMP 37.1; O2SAT 98; BMI 33.3
--- NOTE | 2020-12-15 19:41 | HMH.EDUTC ---
[facility] Disposition Clinical Impression: Exposure to COVID-19 virus Disposition: Home, Self-Care Condition on Discharge: Good Instructions: DI for COVID-19 (Suspected or Confirmed ), Coronavirus Disease 2019, Preventing the Spread of Coronavirus Discharge Instructions Additional Instructions: *Monitor Temp, Over the counter Motrin or Tylenol as directed/as needed Tylenol every 4 hours and Motrin every 6 hours (as long as your family doctor has told you that you can take it) for fever or pain. and straight to ER if unable to lower temp less than 101.0 after medication given Follow up IMMEDIATELY for new or worsening symptoms or no Noticeable improvement over the next 48-72 hours. 911 for difficulty breathing or swallowing You were tested for today for COVID19 your test result should be back in the next 24-48 hours, you may call to the [facility] to see if your test results are back in the next 48 hours [phone] [facility] hours are 9am-9pm You was given a handout with instructions for Self Quarantine and Self isolation for while you wait on test results and what to do if they are positive If you are positive the Health Dept will be contacting you also Referrals: Miguel Herron APRN [Primary Care Provider] - As needed Forms: Work/School Release Time of Disposition: 19:49 Medical Decision Making - Robby Inquiry Pt receiving controlled substance: No Robby was queried for this patient: No Vital Signs: 12/15/20 19:20 Temperature 98.7 F Temperature Source Oral Pulse Rate [Right Brachial] 94 H Respiratory Rate 19 Blood Pressure [Right Arm] 137/93 H Blood Pressure Mean [Right Arm] 107 Blood Pressure Source [Right Arm] Automatic Cuff Blood Pressure Position [Right Arm] Sitting 02 Sat by Pulse Oximetry 98 Oxygen Delivery Method Room Air Orders (Tests/Meds): ORDERS Category Date Time Status Covid-19 Nasal PCR Sendout P&C Stat Lab 12/15/20 19:15 Received [facility] HPI - General Stated complaint: COVID Test Time Seen by Provider: 12/15/20 19:41 Mode of Arrival: Ambulatory Source of Information: Patient Limitations: No Limitations Description of Symptoms (Recalled from Triage Doc. by RN): COVID TEST D/T EXPOSURE HEENT Symptoms (Recalled from RN notes): No Resp Symptoms (Recalled from RN notes): No Skin Symptoms (Recalled from RN notes): No MS Symptoms (Recalled from RN notes): No Functional Status (Recalled from RN notes): WNL - History of Present Illness Provider Complaint: Patient state that she was recently around someone that tested positive for COVID State that she isnt having any symptoms but wanted to get tested due to exposure - Related Data Home Medications Medication Instructions Recorded Confirmed mupirocin 2 % topical ointment TOPICAL 01/08/20 09/02/20 Previous Rx's Medication Instructions Recorded fluticasone propionate 50 50 mcg INTRANASAL DAILY PRN #47.4 g 09/29/18 mcg/actuation nasal spray,suspension carvedilol 25 mg tablet 25 mg PO BID #180 tab 06/05/19 atorvastatin 40 mg tablet 40 mg PO QDAY #90 tab 07/22/19 albuterol sulfate 90 mcg/actuation See Rx Instructions .ROUTE 06/07/20 aerosol inhaler .COMPLEX #18 g furosemide 40 mg tablet 40 mg PO DAILY #90 tab 08/29/20 spironolactone 50 mg tablet 50 mg PO DAILY #90 tab 08/29/20 lisinopril 20 mg tablet See Rx Instructions .ROUTE 09/01/20 .COMPLEX #30 tab omeprazole 40 mg capsule,delayed 40 mg PO BID #180 cap 09/01/20 release amoxicillin 875 mg-potassium 1 tab PO BID 10 Days #20 tab 09/02/20 clavulanate 125 mg tablet dextromethorphan-guaifenesin 30 1 tab PO Q12H #30 tab 09/02/20 mg-600 mg tablet extended [id number] hr prednisone 20 mg tablet 20 mg PO BID 5 Days #10 tab 09/02/20 aspirin 81 mg tablet,delayed See Rx Instructions .ROUTE 10/11/20 release .COMPLEX #30 tab diltiazem HCl 360 mg 360 mg PO DAILY #90 cap 10/11/20 capsule,extended release 24 hr duloxetine 20 mg capsule,delayed See Rx Instructions .ROUTE 12/13/20 rele
[2020-12-15 19:58] VITALS: BP 137/93; PULSE 94; RESP 19; TEMP 37.1; O2SAT 98
[2020-12-17 11:39] LABS: Covid-19 Nasal PCR Sendout P&C Negative
== END 2020-12-15 20:00 | disposition home or self-care (01) ==
PROVIDERS: Emergency Provider Nurse Practitioner; PCP Nurse Practitioner Family
DX: Z20.822 Contact with and (suspected) exposure to COVID-19 (principal); J44.9 Chronic obstructive pulmonary disease, unspecified; K21.9 Gastro-esophageal reflux disease without esophagitis; I10 Essential (primary) hypertension; M79.7 Fibromyalgia; E78.5 Hyperlipidemia, unspecified; F41.8 Other specified anxiety disorders; F17.210 Nicotine dependence, cigarettes, uncomplicated; Z79.899 Other long term (current) drug therapy
CPT/HCPCS: G0463; 99202; U0004

== ENCOUNTER → 2021-03-27 07:28 | Outpatient (CLI) | payer MEDICARE, OTHER, SELFPAY ==
--- NOTE | 2021-03-27 07:28 | US_ITS ---
PROCEDURE: US GALLBLADDER CLINICAL INDICATION: abd pain Right upper quadrant pain COMPARISON: CT ABDPELWO CT abdomen pelvis wo con from 07/17/2018 FINDINGS: Pancreas: Unremarkable/Not well seen Liver: Diffuse increased echogenicity of the liver with poor through transmission of sound consistent with hepatic steatosis. No focal liver lesion demonstrated. There is appropriate direction of blood flow within non dilated portal vein. The liver is somewhat difficult to penetrate . Right kidney: Unremarkable appearing. No hydronephrosis. Gallbladder: No stones are evident. There is no gallbladder wall thickening. Common duct is normal in diameter. IMPRESSION: Hepatic steatosis otherwise negative Dictated by: Abdoul Saldana MD 03/28/2021 06:12 Abdoul Saldana MD in [place] 03/28/2021 06:12
== END ==
PROVIDERS: PCP Nurse Practitioner Family; Visit Provider Nurse Practitioner Family
DX: R19.8 Other specified symptoms and signs involving the digestive system and abdomen (principal)
CPT/HCPCS: 76705

== ENCOUNTER → 2021-04-18 09:42 | Outpatient (CLI) | payer MEDICARE, OTHER, SELFPAY ==
--- NOTE | 2021-04-18 09:58 | NM_ITS ---
PROCEDURE: NM HEPATOBILIARY WO PHARM CLINICAL INDICATION: RUQ abd pain hepatic stenosis COMPARISON: US US GALLBLADDER from 03/27/2021 TECHNIQUE: DOSE: 7.42 mCi technetium Choletec. Fatty meal was obtained with Ensure FINDINGS: Homogeneous activity is present within the hepatic parenchyma. Activity is present in the gallbladder by 5 minutes. Activity is present in the small bowel by 10 minutes. The gallbladder ejection fraction is calculated to be 51 percent. The patient reported some pain following the ingestion of fatty meal. IMPRESSION: Unremarkable hepatobiliary scan with normal gallbladder ejection fraction Dictated by: Abdoul Saldana MD 04/18/2021 14:56 Abdoul Saldana MD in [place] 04/18/2021 14:56
--- NOTE | 2021-04-18 11:26 | HMH.ITSHM ---
Current Home Medications as stated by this patient Ekta Buenrostro or tour sales representative. []SPIRONOLACTONE PROMETHAZINE OMEPRAZOLE LISINOPRIL ATORVASTATIN ASA LINCLOTIDE FUROSEMIDE FLUTICASONE DULOXETINE DILTIAZEM DICYCLOMINE ALBUTEROL
== END ==
PROVIDERS: PCP Nurse Practitioner Family; Visit Provider Nurse Practitioner Family
DX: R10.11 Right upper quadrant pain (principal)
CPT/HCPCS: 78226; A9537

== ENCOUNTER → 2021-04-25 11:32 | Outpatient (CLI) | payer MEDICARE, OTHER, SELFPAY ==
--- NOTE | 2021-04-25 | CA_ITS ---
APPROVED REPORT Exam: Pharmacologic Technologist: emilia canela, Ht: 5 ft 5 in Wt: 223 lbs BSA: 2.07 m2 HR: 69 bpm BP: 120/79 mmHg Indications: CP, SOB Medical History Medications: Lisinopril,,,,, Omeprazole,,,,, Asa,,,,, Lasix,,,,, Lipitor,,,,, Albuterol,,,,, SpirOLACTONE,,,,, DulOXETINE,,,,, DicyCLOMINE,,,,, LiNACLOTIDE,,,,, DilTAiazem,,,,, Allergies: cipro Cardiac Risk Factors: HTN, Hyperlipidemia, FHX of CAD, Smoking Stress Test Details Test: LEXISCAN HR Resting HR: 73 bpm Max Heart Rate (APMHR): 166.366799 bpm Max HR Achieved: 99 bpm Target HR (85% APMHR): 141.859742 bpm % of APMHR: 59.64 Recovery HR: 83 bpm BP Resting BP: 120/79 mmHg Max BP: 128.0/75.0 mmHg Recovery BP: 120.0/74.0 mmHg ECG Resting ECG: NSR, normal Clinical Exercise duration: 04:00 min Highest Stage Achieved: Exercise capacity: 1.0 METs Stress ECG Conclusion Mild chest heaviness / pressure and SOA. No arrhythmia or ectopy. No significant ST changes. Unremarkable Lexiscan stress. Images reported separately. Electronically signed by : Gustavo Rodriguez, 04/25/2021 18:25:27
--- NOTE | 2021-04-25 11:36 | NM_ITS ---
APPROVED REPORT Exam: Nuclear Stress Test Indication: Chest pain, SOB, Syncope, Fatigue, HTN, High cholesterol, Tobacco use, Family history Patient Location: Outpatient Stress Tech: Shaista Duran MT Tech:Salma Solis, ARRT, RT (R)(N) Ht: 5 ft 5 in Wt: 200 lbs Bra Size: 44D HR: 69 bpm BP: 120/79 mmHg BSA: 1.98 m2 BMI: 33.2 History: Chest pain, SOB, Syncope, Fatigue, HTN, High cholesterol, Tobacco use, Family history Procedure: Patient received a 0.4 mg of intravenous Lexiscan, resting heart rate 69 bpm, resting blood pressure 120/79 mmHg, with Lexiscan maximum heart rate achived was 98 bpm which is Less than 85 % of the maximum predicted heart rate and blood pressure was 120/79 mmHg. Electrocardiogram Resting electrocardiogram showed sinus rhythm, with Lexiscan there is less than 1.[address] segment depression noted from the baseline EKG. The EKG portion of the Lexiscan is nondiagnostic. Cardiac Stress and Resting SPECT Images: Cardiac Stress and Resting SPECT images were obtained using technetium 99m Myoview 32.2 mCi stress and 10.29 mCi at rest. Gated SPECT for analysis of segmental wall motion and calculation of the ejection fraction also done. Prone images were also obtained. Cardiac stress and rest SPECT images show mild fixed defect in the anterior wall with normal jennifer gated SPECT is likely secondary to soft tissue attenuation. There is no reversible ischemia seen. Computer derived ejection fraction is 62% with no regional wall motion abnormality, right ventricle is normal size and contractility. However there is marked transient ischemic dilatation of the left ventricle seen, likely secondary to multivessel coronary artery disease or balanced ischemia. Conclusion: 1. The EKG portion of the Lexiscan is nondiagnostic. 2. No scintigraphic evidence of reversible ischemia seen, computer derived ejection fraction is 62% with no regional wall motion abnormality, right ventricle is normal size and contractility. However there is mild transient ischemic dilatation of the left ventricle seen, this is likely secondary to multivessel coronary artery disease of balanced ischemia. 3. Abnormal Lexiscan Myoview study. Electronically signed by : Gustavo Rodriguez, 04/25/2021 18:34:19
--- NOTE | 2021-04-25 13:12 | HMH.ITSHM ---
Current Home Medications as stated by this patient Ekta Buenrostro or financial services representative. []SPIRONOLACTONE OMEPRAZOLE LISINOPRIL LINACLOTIDE FUROSEMIDE FLUTICASONE DULOXETINE DILTIAZEM DICYCLOMINE ATORVASTATIN ASA ALBUTEROL
--- NOTE | 2021-04-25 13:31 | CA_ITS ---
APPROVED REPORT EXAM: Comprehensive 2D, Doppler, and color-flow Echocardiogram Computer Systems Consultant: Leah Justice RT(R) Ht: 5 ft 5 in Wt: 223lbs BSA: 2.07 BP: 141/83 mmHg Indications: CP, COPD, smoker, edema, HTN, SOB, JEFF, obesity, hyperlipidemia, preop clearance, GERD, BIPIN, CHF, migraines 2D Dimensions LVOT 1.85 cm (M/F) 1.5-2.5 LA Volume 23.80 mL LA Volume Index 11.49 mL/m2 (M/F) 16-34 M-Mode Dimensions RVDd 1.44 cm (0.9-2.6) LA Diam 3.54 cm (1.9-4.0) LVDd 5.47 cm (3.5-5.7) Ao Diam 2.43 cm (2.0-3.7) LVDs 4.54 cm (3.5-5.7) IVSd 0.72 cm (0.6-1.1) PWd 0.59 cm (0.6-1.1) EF (Teich) 35.20% FS 17.00% EDV (Teich) 145.60 mL ESV (Teich) 94.40 mL LV Diastology E Decel Time 230.00 (160-240 msec) E/A Ratio 1.0 MED E' 8.30 (< 7 cm/sec) E'/MED E' Ratio 7.54 (>14) LAT E' 8.10 (<10 cm/sec) E/LAT E' Ratio 7.73 (>14) Mitral Valve MV E Max Ventura. 63.00 (40-130 cm/s) MV A Velocity 66.00 (40-130 cm/s) E/A Ratio 0.95 MV Decel. Time 230.00 (160-240 ms) MV PHT 67.00 ms Left Ventricle Left atrium is mildly enlarged, left ventricle is normal size, left ventricle wall thickness is upper limit of normal, there is preserved left ventricular systolic function, visually estimated ejection fraction 55% with no regional wall motion abnormality, diastolic parameters are inconclusive. Right Ventricle Right atrium and right ventricle are relatively normal size and function. Aortic Valve Aortic valve is minimally thickened and fibrosed, there is no aortic stenosis or aortic insufficiency. Mitral Valve Mitral valve grossly normal, there is mild mitral regurgitation. Tricuspid Valve Tricuspid grossly normal, there is mild tricuspid regurgitation, tricuspid regurgitation jet velocity is inadequate for calculation of the right ventricular systolic pressure. Pulmonic Valve Pulmonic valve is poorly visualized. Great Vessels Aortic root is normal size. Pericardium No significant pericardial effusion noted. Conclusion 1. Normal left ventricular size, preserved left ventricular systolic function, visually estimated ejection fraction 55% with no regional wall motion abnormality, diastolic parameters are inconclusive. 2. Mild mitral and tricuspid regurgitation. 3. No significant pericardial effusion noted. Electronically signed by : Gustavo Rodriguez, 04/25/2021 18:46:46
== END ==
PROVIDERS: PCP Nurse Practitioner Family; Visit Provider Urology
DX: G47.33 Obstructive sleep apnea (adult) (pediatric) (principal); I10 Essential (primary) hypertension; J44.9 Chronic obstructive pulmonary disease, unspecified; K21.9 Gastro-esophageal reflux disease without esophagitis; R06.00 Dyspnea, unspecified; R06.01 Orthopnea; R06.02 Shortness of breath; R07.89 Other chest pain; R60.9 Edema, unspecified; Z72.0 Tobacco use
CPT/HCPCS: 78452; 93017; 93306; A9502; J2785

== ENCOUNTER → 2021-05-03 11:47 | Outpatient (CLI) | payer MEDICARE, OTHER, SELFPAY | PROVIDERS: Visit Provider Nurse Practitioner Family | DX: Z20.822 Contact with and (suspected) exposure to COVID-19 (principal) | CPT/HCPCS: U0003 ==

== ENCOUNTER → 2021-05-10 08:38 | Outpatient (CLI) | payer MEDICARE, OTHER, SELFPAY ==
[2021-05-10 09:15] LABS: Basophils % 0.6 % (0.1-2.0); Eosinophils # 0.2 K/mm3 (0.0-0.4); Eosinophils % 2.6 % (0.1-12.0); Hematocrit 39.6 % (37.0-47.0); Hemoglobin 13.6 g/dL (12.2-16.2); Mean Corpuscular HGB Conc 34.2 g/dL (31.8-35.4); Mean Corpuscular Hemoglobin 28.7 pg (27.0-31.2); Mean Corpuscular Volume 83.7 fl (81-99); Mean Platelet Volume 8.4 fl (7.4-10.4); Monocytes # 0.2 K/mm3 (0.1-1.0); Monocytes % 3.4 % (1.7-9.3); Neutrophils # 4.6 K/mm3 (1.8-7.8); Neutrophils % 65.5 % (37.0-80.0); Platelet Count 197 K/mm3 (142-424); Red Blood Count 4.73 M/mm3 (4.20-5.40); Red Cell Distribution Width 13.5 % (11.5-17.5)
[2021-05-10 09:38] LABS: Chloride 103 mmol/L (98-107)
[2021-05-10 09:39] LABS: Potassium 4.8 mmoL/L (3.5-5.1); Sodium 139 mmol/L (136-145)
[2021-05-10 09:42] LABS: Anion Gap 13.8 mEq/L (5-15); Blood Urea Nitrogen 13 mg/dl (7-17); Calcium 9.4 mg/dl (8.4-10.2); Carbon Dioxide 27 mmol/L (22.0-30.0); Estimated Glomerular Filt Rate 58 ml/min (>60); GFR (African American) 70 ML/MIN (>60); Glucose 170 mg/dl (74-100)
== END ==
PROVIDERS: Urology; Visit Provider Internal Medicine
DX: Z20.822 Contact with and (suspected) exposure to COVID-19 (principal); Z01.812 Encounter for preprocedural laboratory examination; R06.02 Shortness of breath
CPT/HCPCS: 36415; 80048; 85025; U0003

== ENCOUNTER 2021-05-11 08:00 | Day surgery (SDC) | payer MEDICARE, OTHER, SELFPAY ==
[2021-05-11] VITALS (9 sets, daily range): BP systolic 95–137; BP diastolic 59–82; PULSE 63–78; RESP 16–18; O2SAT 90–98; BMI 36.4
--- NOTE | 2021-05-11 07:13 | IR_ITS ---
APPROVED REPORT Patient Location: Outpatient PROCEDURES Left heart catheterization Left ventriculogram Selective coronary angiogram INDICATION Preoperative evaluation, Abnormal Myoview Informed consent was obtained prior to the procedure. COMPLICATIONS None Estimated Blood Loss: less than 10ml TECHNIQUE One percent lidocaine used to anesthetize the right anterior aspect of the wrist. The right radial artery was accessed via the Seldinger technique. A 6 German sheath was placed in the right radial artery. 2.5 mg of verapamil, 800 mcg of nitroglycerin, 1mg Lidocaine and 5000 U Heparin were given through the arterial sheath. The trap catheter was also used to perform left heart catheterization, left ventriculogram and selective coronary angiogram. At the end of the procedure the sheath was removed good hemostasis was achieved using Traclet band, patient was transferred to the postop holding area in stable condition. 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 The myocardial bridge is clinically insignificant at this time 2. Patient is alone acceptable risk to proceed with outpatient elective surgical procedure 3. Treatment of diastolic dysfunction Electronically signed by : Jaleel Bills, 05/11/2021 13:45:38
== END 2021-05-11 16:13 | disposition home or self-care (01) ==
LOC: CATHLAB 08:02
PROVIDERS: PCP Nurse Practitioner Family; Visit Provider Internal Medicine
DX: G47.33 Obstructive sleep apnea (adult) (pediatric) (principal); I10 Essential (primary) hypertension; J44.9 Chronic obstructive pulmonary disease, unspecified; K21.9 Gastro-esophageal reflux disease without esophagitis; R06.02 Shortness of breath; R60.9 Edema, unspecified; R94.39 Abnormal result of other cardiovascular function study; Z72.0 Tobacco use; I25.118 Atherosclerotic heart disease of native coronary artery with other forms of angina pectoris; I20.8 Other forms of angina pectoris
CPT/HCPCS: 93458; 99152; C1725; C1769; J1644; Q9967

== ENCOUNTER → 2021-07-28 15:09 | Outpatient (CLI) | payer MEDICARE, OTHER, SELFPAY ==
[2021-07-28 17:10] LABS: Anion Gap 15.1 mEq/L (5-15); Blood Urea Nitrogen 15 mg/dl (7-17); Calcium 9.2 mg/dl (8.4-10.2); Carbon Dioxide 26 mmol/L (22.0-30.0); Chloride 101 mmol/L (98-107); Estimated Glomerular Filt Rate 58 ml/min (>60); GFR (African American) 70 ML/MIN (>60); Glucose 131 mg/dl (74-100); Potassium 4.1 mmoL/L (3.5-5.1); Sodium 138 mmol/L (136-145)
== END ==
PROVIDERS: Urology; Visit Provider Internal Medicine Gastroenterology
DX: G47.33 Obstructive sleep apnea (adult) (pediatric) (principal); I10 Essential (primary) hypertension; I20.8 Other forms of angina pectoris; J44.9 Chronic obstructive pulmonary disease, unspecified; K21.9 Gastro-esophageal reflux disease without esophagitis; R06.00 Dyspnea, unspecified; R60.9 Edema, unspecified; Z72.0 Tobacco use; Z01.812 Encounter for preprocedural laboratory examination; Z11.52 Encounter for screening for COVID-19; Z12.11 Encounter for screening for malignant neoplasm of colon
CPT/HCPCS: 36415; 80048; U0003

== ENCOUNTER 2021-07-31 11:53 | Day surgery (SDC) | payer MEDICARE, OTHER, SELFPAY ==
[2021-07-25 14:20] VITALS: BMI 33.3
[2021-07-31] VITALS (7 sets, daily range): BP systolic 102–146; BP diastolic 69–79; PULSE 85–102; RESP 18; TEMP 36.3–36.9; O2SAT 91–97
--- NOTE | 2021-07-31 12:34 | P.PN_ITS ---
[facility] Anesthesia Checklist - Patient Identification Patient Identification: Arm Band - Structural Data Admitted From: Home Planned Operative Procedure/s: egd Consent for Planned Operative Procedure(s) Verified: Yes Verified Documents: Surgical Consent, History and Physical - NPO Status Verified Time NPO: 00:00 - Additional verifications Anesthesia Reactions: No Hx Blood Transfusions: No Blood Transfusion Reaction: No - Airway Assessment C-Spine Mobility Assessed: Yes (mp2) TMJ Mobility Assessed: Yes Dentition: Good Dentition - Neurological Assessment Level of Consciousness: Awake, Alert - Anesthesia Plan Anesthesia Risk discussed: Yes Anesthesia Plan: Verified ASA Class: III Anesthesia Type: MAC [facility] History I have reviewed the patient's past medical history: Yes Medical History: Reports:: Anxiety, Cancer (skin), Congestive Heart Failure, Chronic Obstructive Pulmonary Disease (COPD), Depression, Gastroesophageal Reflux Disease(GERD), Hiatal Hernia, Hyperlipidemia, Hypertension, Migraine Denies:: Diabetes Mellitus Type 1, Diabetes Mellitus Type 2, Internal Pacemaker, Lung Disease, MRSA, Seizures *Have you ever received a pneumonia vaccine?: No *Have you received a flu vaccine this season?: No Other Medical History: Reports: Arthritis, Fibromyalgia, Sinus Problems, Other. Denies: Blood Transfusion Reaction Anesthesia experience/problems:: nac Laterality Cases: Right: Other Other Surgeries: Yes: Appendectomy, Cardiac Catheterization, Colonoscopy, Hysterectomy-Total, Tubal Ligation, Other (ankle surgery 2016). No: Pacemaker Amputation: No Fractures: Yes (RIGHT ANKLE ORIF) - *Social History Last grade of school completed: 9th or 10th Smoking Status: Former smoker Tobacco Type: cigarettes # Packs/Day (cigarettes): 1 #Yrs smoked (if former smoker): 32 Alcohol Intake: never Alcohol Intake Frequency:: other Substance Use Type: denies use *Occupational Status:: disabled Housing: house Household Members: family *Travel in the last 8 weeks: None - Psychiatric History Pschychiatric History:: Reports:: Anxiety, Depression Family Hx:: Heart Attack, Diabetes, Cancer
--- NOTE | 2021-07-31 12:50 | HMH.PROC ---
[facility] Procedure Note Procedure Note:: Upper Endoscopy Procedure Report: Esophagogastroduodenoscopy with cold biopsies Endoscopost: Mohsen Farley II, MD Referring Physician: DIEUDONNE Manley Date of Procedure: July 31, 2021 Equipment: Olympus GIF 190 standard upper endoscope Sedation: MAC sedation Indications: Mrs. Buenrostro is a 56-year-old female who is here for diagnostic evaluation of her dyspepsia. She reports epigastric abdominal pain and some generalized abdominal discomfort that is constant. She has had bloating, gassiness and moderate belching. She reports nausea and early satiety. She has no dysphagia but does have some globus sensation. She reports no heartburn but does get some chest pressure. Her last upper endoscopy was more than 10 years ago. The patient does have chronic constipation for which she takes Linzess every other day. If she takes Linzess daily, she will develop urgency and diarrhea. Procedure: Prior to the procedure, a history and physical exam was performed, and patient's medications and allergies were reviewed. The risks, benefits and alternatives of the sedation and procedure were discussed with the patient. All questions were answered and informed consent was obtained. The patient was brought to the procedure room. Patient identification and proposed procedure were verified by the physician and the nurse. The patient was placed in a left lateral decubitus position and the scope was passed under direct vision. Throughout the procedure, the patient's blood pressure, pulse, and oxygen saturations were monitored continuously. The upper GI endoscopy was accomplished without difficulty. The patient tolerated the procedure well. Findings: The scope was passed directly into the upper esophagus and advanced to the third portion of the duodenum. The post bulbar duodenum and duodenal bulb were normal with normal mucosa and conniventes. The scope was withdrawn through a normal duodenal bulb and pylorus into the stomach. There was some moderate linear reactive gastropathy of the antrum of the stomach. The remainder of the body and fundus of the stomach were grossly normal. Upon retroflexion there was a small 2 cm hiatal hernia. 2 biopsies were taken in the antrum and along the lesser curvature for histology to rule out gastritis and/or H pylori. The scope was then withdrawn into the esophagus. There was no evidence of reflux esophagitis or Aponte's. There was a serrated Z-line and biopsies were taken at the GE junction. There were some tertiary contractions and evidence of mild esophageal dysmotility. The remainder of the esophageal mucosa was normal. Impression: 1. Nonerosive GERD with mild esophageal dysmotility and small 2 cm hiatal hernia 2. Moderate linear reactive gastropathy Plan: The patient does have functional dyspepsia which is clearly related to her obstipation. We will discuss additional dietary measures and treatment options. I will follow-up the biopsies.
== END 2021-07-31 14:04 | disposition home or self-care (01) ==
LOC: OUTP 11:57
PROVIDERS: PCP Nurse Practitioner Family; Visit Provider Internal Medicine Gastroenterology
PROC: 0DJ08ZZ Inspection of Upper Intestinal Tract, Via Natural or Artificial Opening Endoscopic (ICD-10-PCS; CPT 43235; principal; 2021-07-31 13:00)
DX: K30 Functional dyspepsia (principal); K21.9 Gastro-esophageal reflux disease without esophagitis; K31.9 Disease of stomach and duodenum, unspecified; K44.9 Diaphragmatic hernia without obstruction or gangrene; K22.4 Dyskinesia of esophagus; F41.9 Anxiety disorder, unspecified; I11.0 Hypertensive heart disease with heart failure; I50.9 Heart failure, unspecified; J44.9 Chronic obstructive pulmonary disease, unspecified; F32.9 Major depressive disorder, single episode, unspecified; E78.5 Hyperlipidemia, unspecified; G43.909 Migraine, unspecified, not intractable, without status migrainosus
CPT/HCPCS: 43239; 88305

== ENCOUNTER → 2021-09-25 11:50 | Outpatient (CLI) | payer MEDICARE, OTHER, SELFPAY ==
[2021-09-25 12:10] LABS: Basophils # 0.1 K/mm3 (0-0.2); Basophils % 1.7 % (0.1-2.0); Eosinophils # 0.2 K/mm3 (0.0-0.4); Eosinophils % 2.7 % (0.1-12.0); Hematocrit 43.7 % (37.0-47.0); Hemoglobin 14.5 g/dL (12.2-16.2); Lymphocytes # 2.3 K/mm3 (0.7-4.5); Lymphocytes % 38.6 % (10-50); Mean Corpuscular HGB Conc 33.3 g/dL (31.8-35.4); Mean Corpuscular Hemoglobin 29.1 pg (27.0-31.2); Mean Corpuscular Volume 87.6 fl (81-99); Monocytes # 0.2 K/mm3 (0.1-1.0); Monocytes % 3.9 % (1.7-9.3); Neutrophils # 3.1 K/mm3 (1.8-7.8); Neutrophils % 53.2 % (37.0-80.0); Platelet Count 227 K/mm3 (142-424); Red Blood Count 4.98 M/mm3 (4.20-5.40); Red Cell Distribution Width 13.2 % (11.5-17.5); White Blood Count 5.9 K/mm3 (4.8-10.8)
[2021-09-25 13:06] LABS: Alanine Aminotransferase 21 U/L (12-78); Albumin Level 4.1 g/dl (3.5-5.0); Albumin/Globulin Ratio 1.5 (1.1-1.8); Alkaline Phosphatase 93 U/L (38-126); Anion Gap 11.1 mEq/L (5-15); Aspartate Amino Transferase 21 U/L (14-36); Bilirubin,Total 0.5 mg/dl (0.2-1.3); Blood Urea Nitrogen 14 mg/dl (7-17); Calcium 9.7 mg/dl (8.4-10.2); Carbon Dioxide 29 mmol/L (22.0-30.0); Chloride 104 mmol/L (98-107); Chol/HDL Ratio 6.2 (1-3.5); Cholesterol 198 mg/dl (140-200); Estimated Glomerular Filt Rate 74 ml/min (>60); GFR (African American) 90 ML/MIN (>60); Globulin 2.8 g/dL (1.3-3.2); Glucose 109 mg/dl (74-100); HDL Cholesterol 32 mg/dl (40-60); Potassium 5.1 mmoL/L (3.5-5.1); Sodium 139 mmol/L (136-145); Total Protein,Serum 6.9 g/dl (6.3-8.2)
[2021-09-25 13:17] LABS: C-Reactive Protein 4.3 mg/L (0-4); Direct LDL Cholesterol 89.06 mg/dL (100-129); Triglycerides 424 mg/dl (30-150)
[2021-09-25 13:23] LABS: 25-OH Vitamin D, Total 36.2 ng/mL (30-100)
[2021-09-25 13:25] LABS: T4 (Thyroxine) 10.9 ug/dl (5.53-11.0)
[2021-09-25 13:33] LABS: Erythrocyte Sedimentation Rate 12 mm/hr (0-30)
[2021-09-25 13:38] LABS: Thyroid Stimulating Hormone 2.03 uIU/mL (0.465-4.68)
[2021-09-25 15:15] LABS: Hemoglobin A1C 6.2 % (4.0-6.0)
[2021-09-26 13:10] LABS: Anti-DNA (DS) Ab Qn <1 IU/mL (0-9); RNP Antibodies 0.2 AI (0.0-0.9)
[2021-09-26 13:11] LABS: Anti-Centromere B Antibodies <0.2 AI (0.0-0.9); Anti-Jo-1 <0.2 AI (0.0-0.9); Anti-Smith Antibody <0.2 AI (0.0-0.9); Antichromatin Antibodies <0.2 AI (0.0-0.9); Antiscleroderma-70 Antibodies <0.2 AI (0.0-0.9); Sjogren's Anti-SS-A <0.2 AI (0.0-0.9); Sjogren's Anti-SS-B <0.2 AI (0.0-0.9)
== END ==
PROVIDERS: Visit Provider Nurse Practitioner Family
DX: M25.511 Pain in right shoulder (principal); R73.09 Other abnormal glucose; I20.8 Other forms of angina pectoris; M54.41 Lumbago with sciatica, right side; E55.9 Vitamin D deficiency, unspecified; R60.9 Edema, unspecified
CPT/HCPCS: 36415; 80053; 80061; 82306; 83036; 84436; 84443; 85025; 85651; 86140; 86225; 86235

== ENCOUNTER 2021-10-12 13:47 | Outpatient (RCR) | payer MEDICARE, OTHER, SELFPAY ==
--- NOTE | 2021-10-12 15:08 | HMH.OTOPEV ---
OT Inpatient Evaluation Rehab OT Outpatient Eval Start: 10/12/21 14:29 Freq: Status: Active Protocol: Document 10/12/21 14:29 BERNADETTEEDGAR (Rec: 10/12/21 15:03 GRETCHEN [id number]) Electronically Signed By Fiordaliza Connors OT 10/12/21 14:29 Outpatient Therapy Subjective History Subjective History 56 year old female referred to skilled OP OT services for right shoulder pain. Patient verablize having pain in the right shoulder and neck for the past year. OT completed an evaluation/screen to the right shoulder with no pain verbalize during assessment. Assessment of cervical necks taken place with AROM limited and pain with spurling and traction test to indicate pain coming from the neck. However OT consulted with PT re: patient's pain is coming from the neck vs the shoulder. At this time, Patient would benefit from PT vs OT to address right side cervical radiculopathy. Evaluation only . Chief Complaint Pain Outpatient Therapy Plan of Care Addendums This patient is a candidate for social No or vocational rehab? Patient/Guardian verbally acknowledges Yes understanding of treatment program and consents to further treatment? Patient/Guardian verbally acknowledges Yes understanding of diagnosis, prognosis and goals for treatment? G -code Required No Eval Complexity OT Charge 25508 - Low Complexity Shoulder/Elbow Eval Shoulder Objective Measurements Elbow Objective Measurements PHYSICIAN CERTIFICATION: I certify the specified therapy services for Ekta Buenrostro are required, authorized, and reviewed every 30 days.
== END 2021-10-12 13:50 | disposition home or self-care (01) ==
LOC: OT 13:47
PROVIDERS: PCP Nurse Practitioner Family; Visit Provider Nurse Practitioner Family
DX: M25.511 Pain in right shoulder (principal)
CPT/HCPCS: 97165

== ENCOUNTER 2021-10-16 10:00 | Outpatient (RCR) | payer MEDICARE, OTHER, SELFPAY ==
--- NOTE | 2021-10-12 15:16 | HMH.PTOPEV ---
PT Outpatient Evaluation Rehab PT Outpatient Evaluation Start: 10/12/21 14:59 Freq: Status: Active Protocol: Document 10/12/21 14:59 NEELIMA (Rec: 10/12/21 15:15 NEELIMA [id number]) Electronically Signed By Randolph Franco, PT 10/12/21 14:59 Outpatient Therapy Subjective History Subjective History Patient is a 56 year old female presenting to outpatient PT with reports chronic LBP and cervical spine pain of insidious onset starting approx 3 years ago. Patient reports radicular symptoms to RLE and RUE. No recent imaging to report. Comorbidities include CHF, HTN and pre-diabetes. Chief Complaint Pain,Spasms,Stiff,Paresthesia, Weakness Symptom Type Ache,Sharp,Numbness,Tingling Symptoms Relieved By Heat,Ice,OTC Meds Symptoms Aggravated By Standing,Bending/Stooping, Physical Activity,Walking, Lifting Prior Functional Limitations None Current Functional Limitations Reaching,Lifting,Housework, Sleeping,Standing,Walking, Bending/Stooping Symptom Description Constant but Variable Level of pain today (0-10) 7 Pain scale - at its best (0-10) 4 Pain scale - at its worst (0-10) 9 Cervical Eval Palpation Cervical Muscles R Cervical Paraspinal,R Suboccipital,R Upper Trapezius Cervical/Thoracic Palpation Findings Tenderness Posture Head/C-Spine Posture Sitting Position C-Spine Flattened Head/C-Spine Posture Standing Position C-Spine Flattened Flexibility Deficits Upper Trapezius Muscle Length (R) Moderate Tightness Levaetor Scapulae Muscle Length (R) Moderate Tightness Scalene Group Muscle Length (R) Moderate Tightness Pectoralis Minor Muscle Length (R) Moderate Tightness Passive Joint Mobility Cervical PIVM Dec: R OA L OA R AA L AA R C2/3 L C2/3 R C3/4 L C3/4 R C4/5 L C4/5 R C5/6 L C5/6 R C6/7 L C6/7 R C7/T1
== END 2021-10-16 10:05 | disposition home or self-care (01) ==
LOC: PT 10:00
PROVIDERS: PCP Nurse Practitioner Family; Visit Provider Nurse Practitioner Family
DX: M25.511 Pain in right shoulder (principal); M54.41 Lumbago with sciatica, right side
CPT/HCPCS: 97010; 97110; 97140; 97163

== ENCOUNTER → 2021-12-21 12:51 | Outpatient (CLI) | payer MEDICARE, OTHER, SELFPAY | PROVIDERS: Visit Provider Nurse Practitioner | DX: U07.1 COVID-19 (principal) | CPT/HCPCS: C9803; U0003; U0005 ==

== ENCOUNTER → 2022-03-16 12:36 | Outpatient (CLI) | payer MEDICARE, OTHER, SELFPAY ==
--- NOTE | 2022-03-16 12:41 | US_ITS ---
FINAL REPORT CLINICAL HISTORY: enlarged thyroid FINDINGS: THYROID ULTRASOUND The right lobe of the thyroid measures 4.8 x 1.9 x 1.4 cm. The left lobe of the thyroid measures 4.1 x 2.5 x 1.5 cm. There are a multitude of hypoechoic subcentimeter nodules in both lobes of the thyroid. The dominant right nodule labeled as nodule B measures 1.4 cm consistent with a TI-RADS 4. IMPRESSION: TI-RADS 4 nodule measuring 1.4 cm in the right lobe of the thyroid. Recommend follow-up ultrasound in 6-12 months. If there is any meaningful growth biopsy would be indicated. Reviewed, Interpreted and Dictated by Jerome Levy MD Transcribed by Donte Saleh Authenticated by Jerome Levy MD on 03/16/2022 04:54:42 PM [facility]
== END ==
PROVIDERS: PCP Nurse Practitioner Family; Visit Provider Nurse Practitioner Family
DX: E04.9 Nontoxic goiter, unspecified (principal)
CPT/HCPCS: 76536

== ENCOUNTER → 2022-07-04 08:46 | Outpatient (CLI) | payer MEDICARE, OTHER, SELFPAY | PROVIDERS: PCP Physician Assistant; Visit Provider Surgery | DX: Z01.812 Encounter for preprocedural laboratory examination (principal); Z20.822 Contact with and (suspected) exposure to COVID-19; Z12.11 Encounter for screening for malignant neoplasm of colon | CPT/HCPCS: C9803; U0003; U0005 ==

== ENCOUNTER 2022-07-06 08:20 | Day surgery (SDC) | payer MEDICARE, OTHER, SELFPAY ==
[2022-07-04 09:23] VITALS: BMI 33.3
[2022-07-06 08:47] VITALS: BP 143/72; PULSE 75; RESP 17; TEMP 36.6; O2SAT 92
--- NOTE | 2022-07-06 09:29 | HMH.ANESCL ---
[facility] Anesthesia Checklist - Patient Identification Patient Identification: Arm Band, Verbal (Name & ) - Structural Data Admitted From: Home Planned Operative Procedure/s: Colonoscopy Consent for Planned Operative Procedure(s) Verified: Yes Verified Documents: Surgical Consent - NPO Status Verified Time NPO: 00:00 - Additional verifications Anesthesia Reactions: No Hx Blood Transfusions: No Blood Transfusion Reaction: No - Airway Assessment C-Spine Mobility Assessed: Yes TMJ Mobility Assessed: Yes Dentition: Good Dentition - Anesthesia Plan Anesthesia Risk discussed: Yes ASA Class: II Anesthesia Type: MAC [facility] History I have reviewed the patient's past medical history: Yes Medical History: Reports:: Anxiety, Cancer, Congestive Heart Failure, Chronic Obstructive Pulmonary Disease (COPD), Depression, Gastroesophageal Reflux Disease(GERD), Hiatal Hernia, Hyperlipidemia, Hypertension, Migraine Denies:: Diabetes Mellitus Type 1, Diabetes Mellitus Type 2, Internal Pacemaker, Lung Disease, MRSA, Seizures *Have you ever received a pneumonia vaccine?: No *Have you received a flu vaccine this season?: No Other Medical History: Reports: Arthritis, Fibromyalgia, Sinus Problems, Other. Denies: Blood Transfusion Reaction Anesthesia experience/problems:: none Laterality Cases: Right: Other Other Surgeries: Yes: Appendectomy, Cardiac Catheterization, Colonoscopy, Hysterectomy-Total, Tubal Ligation, Other (ankle surgery 2016). No: Pacemaker Amputation: No Fractures: Yes (RIGHT ANKLE ORIF) - *Social History Last grade of school completed: 9th or 10th Smoking Status: Current every day smoker Tobacco Type: cigarettes # Packs/Day (cigarettes): 2 #Yrs smoked (if former smoker): 32 Alcohol Intake: never Alcohol Intake Frequency:: other Substance Use Type: denies use *Occupational Status:: disabled Housing: house Household Members: family *Travel in the last 8 weeks: None - Psychiatric History Pschychiatric History:: Reports:: Anxiety, Depression Family Hx:: Heart Attack, Diabetes, Cancer
[2022-07-06 09:51] VITALS: O2SAT 93
--- NOTE | 2022-07-06 10:24 | P.PCN_ITS ---
- Procedure: Date: 07/06/22 Patient Date of :: 1965 Procedure Performed:: Total colonoscopy with snare polypectomy Indications:: Patient is a 57-year-old female with family history of colon cancer. She has undergone several previous colonoscopies and upper endoscopy. She had colonoscopy in 2011, 2012, and [address] Kohli. Colonoscopy 2014 revealed a tubulovillous adenoma and she had a follow-up colonoscopy by Dr. Sanchez in 2014 with some additional polyp removed. I performed colonoscopy in 2019 and she had a couple of tubular adenomas. Given the family history and history of polyps 3- year follow-up colonoscopy was recommended. Performing Provider:: Bari Santana MD Referring Provider:: Sobeida Mena Sedation:: MAC sedation Procedure:: Patient was taken to endoscopy procedure room. She was positioned in lateral decubitus position. Adequate intravenous sedation was achieved with anesthesia titration of propofol. Variable stiffness Olympus colonoscope was inserted via the anus. Was advanced to the cecum. Colonic preparation was good although there was some particulate liquid stool and occasional vegetable matter noted but irrigation and suctioning was performed which allowed for good visualization. Ileocecal valve and appendiceal orifice were identified. Colonoscope was slowly withdrawn through the colon with careful surveillance. In the sigmoid colon approximately 50 cm from the anal verge there was a small adenomatous, approximately 5 to 6 mm, polyp removed with cold snare. She had some diverticulosis. Retroflexion within the rectum revealed no evidence of any pathologic internal hemorrhoids. Colonoscope was withdrawn. Findings:: Diverticulosis Adenomatous appearing sigmoid polyp Recommendations:: Follow-up colonoscopy pending pathology. However, given the family history, personal history of multiple tubular adenomas and tubulovillous adenoma likely repeat colonoscopy within 3 years. Complications:: None immediately apparent Estimated blood obtained (mL): 1
[2022-07-06 10:25] VITALS: BP 100/72; PULSE 82; RESP 16; TEMP 36.4; O2SAT 95
[2022-07-06 10:35] VITALS: BP 111/63; PULSE 76; RESP 16; TEMP 36.4; O2SAT 95
[2022-07-06 10:45] VITALS: BP 113/73; PULSE 75; RESP 18; TEMP 36.4; O2SAT 97
[2022-07-06 10:55] VITALS: BP 116/71; PULSE 75; RESP 18; TEMP 36.4; O2SAT 97
== END 2022-07-06 10:55 | disposition home or self-care (01) ==
LOC: OUTP 08:22
PROVIDERS: PCP Physician Assistant; Visit Provider Surgery
PROC: 0DJD8ZZ Inspection of Lower Intestinal Tract, Via Natural or Artificial Opening Endoscopic (ICD-10-PCS; principal; 2022-07-06 10:30)
DX: Z12.11 Encounter for screening for malignant neoplasm of colon (principal); Z86.010 Personal history of colon polyps; Z80.0 Family history of malignant neoplasm of digestive organs; K21.9 Gastro-esophageal reflux disease without esophagitis; I11.0 Hypertensive heart disease with heart failure; I50.9 Heart failure, unspecified; J44.9 Chronic obstructive pulmonary disease, unspecified; E78.5 Hyperlipidemia, unspecified; Z72.0 Tobacco use; K63.5 Polyp of colon
CPT/HCPCS: 45385; 88305

== ENCOUNTER 2022-11-19 19:59 | Emergency (ER) | payer MEDICARE, OTHER, SELFPAY ==
[2022-11-19 20:00] VITALS: BP 158/91; PULSE 97; RESP 18; TEMP 36.9; O2SAT 99; BMI 33.3
--- NOTE | 2022-11-19 21:20 | HMH.EDWNDL ---
Discharge Plan Disposition Patient Disposition: Home, Self-Care Chief Complaint: Wound/Laceration Prescriptions Prescriptions: No Action cariprazine 3 mg capsule 3 mg PO DAILY Qty: 30 1RF duloxetine [Cymbalta] 30 mg capsule,delayed release(DR/EC) 30 mg PO DAILY Qty: 30 2RF trazodone 50 mg tablet 50 mg PO .COMPLEX Qty: 60 1RF Rx Instructions: 50 mg PO take 1 at bedtime; if still awake in 1 hour may repeat dose; hydroxyzine pamoate [Vistaril] 25 mg capsule 25 mg PO TID PRN (Reason: for increased anxiety) Qty: 90 0RF furosemide 40 mg tablet 40 mg PO DAILY Qty: 90 3RF omeprazole 40 mg capsule,delayed release(DR/EC) See Rx Instructions .ROUTE .COMPLEX Qty: 60 0RF Dose Instruction: TAKE ONE CAPSULE BY MOUTH 2 TIMES A DAY FOR GERD Rx Instructions: TAKE ONE CAPSULE BY MOUTH 2 TIMES A DAY FOR GERD Ozempic 0.25 mg or 0.5 mg(2 mg/1.5 mL) pen injector See Rx Instructions .ROUTE .COMPLEX Qty: 1.5 0RF Dose Instruction: INJECT 0.25MG (0.2ML) SUBCUTANEOUSLY WEEKLY FOR 4 WEEKS THEN INCREASE TO 0.5MG WEEKLY DIRECTED Rx Instructions: INJECT 0.25MG (0.2ML) SUBCUTANEOUSLY WEEKLY FOR 4 WEEKS THEN INCREASE TO 0.5MG WEEKLY DIRECTED aspirin 81 mg tablet,delayed release (DR/EC) See Rx Instructions .Route .COMPLEX Qty: 90 0RF Rx Instructions: TAKE ONE TABLET BY MOUTH ONCE A DAY FOR HEART DISEASE lisinopril 20 mg tablet See Rx Instructions .ROUTE .COMPLEX Qty: 90 0RF Dose Instruction: TAKE ONE TABLET BY MOUTH ONCE A DAY Rx Instructions: TAKE ONE TABLET BY MOUTH ONCE A DAY albuterol sulfate 90 mcg/actuation HFA aerosol inhaler See Rx Instructions .ROUTE .COMPLEX Qty: 18 0RF Dose Instruction: INHALE 2 PUFFS BY MOUTH EVERY 4 TO 6 HOURS DIRECTED Rx Instructions: INHALE 2 PUFFS BY MOUTH EVERY 4 TO 6 HOURS DIRECTED spironolactone 100 MG tablet See Rx Instructions .Route .COMPLEX Rx Instructions: TAKE ONE TABLET BY MOUTH ONCE A DAY metoprolol succinate 50 MG tablet extended release 24 hr 50 mg PO DAILY fluticasone propionate 16 GM spray,suspension 1 spray NS QDAY Rx Instructions: administer into each nostril Referrals Follow up/Referrals: Sobeida Mena PA [Primary Care Provider] - See instructions Clinical Impressions Clinical Impression: Laceration of thumb Instructions Patient Instructions: DI for Laceration Repair Discharge ED Provider: Neto Ferraro Wound/Laceration HPI General Chief Complaint: Wound/Laceration Stated Complaint: ao 11/19, right thumb laceration Time Seen by Provider: 11/19/22 20:40 Mode of Arrival: Ambulatory Source of Information: Patient and Medical Record Limitations: No Limitations Description of Symptoms (Recalled from ER Triage Doc. by RN): pt states dropped a willem jar and has laceration to rt thumb History of Present Illness HPI narrative: acute lac to rt thumb tonight Onset (ago): hour(s) Extremity Location: Right: hand Place: home Patient tetanus UTD: No Context: accidental Associated symptoms: none Related Data Home Medications Medication Instructions Recorded Confirmed spironolactone 100 mg tablet See Rx Instructions .Route 07/25/21 08/28/22 .COMPLEX Fluid fluticasone propionate 50 1 spray intranasal QDAY Allergy 07/04/22 08/28/22 mcg/actuation nasal symptoms spray,suspension metoprolol succinate 50 mg 50 mg PO DAILY High blood pressure 07/04/22 08/28/22 tablet,extended release 24 hr Previous Rx's Medication Instructions Recorded furosemide 40 mg tablet 40 mg PO DAILY Fluid #90 tabs 08/29/20 omeprazole 40 mg capsule,delayed See Rx Instructions .Route 07/10/22 release .COMPLEX #60 caps cariprazine 3 mg capsule 3 mg PO DAILY . #30 caps 08/07/22 duloxetine 30 mg capsule,delayed 30 mg PO DAILY #30 caps 08/07/22 release (Cymbalta) hydroxyzine pamoate 25 mg capsule 25 mg PO TID PRN for increased 08/07/22
[2022-11-19 21:43] VITALS: BP 158/91; PULSE 96; RESP 16; TEMP 37.1; O2SAT 98
== END 2022-11-19 21:49 | disposition home or self-care (01) ==
PROVIDERS: Emergency Provider Emergency Medicine; PCP Physician Assistant
DX: S61.011A Laceration without foreign body of right thumb without damage to nail, initial encounter (principal); M79.10 Myalgia, unspecified site; R51.9 Headache, unspecified; R60.9 Edema, unspecified; I10 Essential (primary) hypertension; I20.9 Angina pectoris, unspecified; I73.9 Peripheral vascular disease, unspecified; K21.9 Gastro-esophageal reflux disease without esophagitis; E04.9 Nontoxic goiter, unspecified; E55.9 Vitamin D deficiency, unspecified; G47.00 Insomnia, unspecified; F32.9 Major depressive disorder, single episode, unspecified; F41.9 Anxiety disorder, unspecified; F17.210 Nicotine dependence, cigarettes, uncomplicated; Z79.51 Long term (current) use of inhaled steroids; Z79.82 Long term (current) use of aspirin; Z79.899 Other long term (current) drug therapy; Z85.820 Personal history of malignant melanoma of skin; Z23 Encounter for immunization
CPT/HCPCS: 12001; 90471; 90714; 99284

== ENCOUNTER → 2023-01-04 11:12 | Outpatient (CLI) | payer MEDICARE, OTHER, SELFPAY | PROVIDERS: PCP Nurse Practitioner Family; Visit Provider Nurse Practitioner Family | DX: N39.0 Urinary tract infection, site not specified (principal) | CPT/HCPCS: 87086 ==

== ENCOUNTER → 2023-03-12 11:45 | Outpatient (CLI) | payer MEDICARE, OTHER, SELFPAY ==
[2023-03-12 12:13] LABS: Basophils # 0.1 K/mm3 (0-0.2); Basophils % 0.8 % (0.1-2.0); Eosinophils # 0.1 K/mm3 (0.0-0.4); Eosinophils % 2.3 % (0.1-12.0); Hematocrit 45.2 % (37.0-47.0); Hemoglobin 14.4 g/dL (12.2-16.2); Lymphocytes # 2.1 K/mm3 (0.7-4.5); Lymphocytes % 35.5 % (10-50); Mean Corpuscular HGB Conc 31.8 g/dL (31.8-35.4); Mean Corpuscular Hemoglobin 28.2 pg (27.0-31.2); Mean Corpuscular Volume 88.9 fl (81-99); Mean Platelet Volume 8.9 fl (7.4-10.4); Monocytes # 0.3 K/mm3 (0.1-1.0); Neutrophils # 3.3 K/mm3 (1.8-7.8); Neutrophils % 56.3 % (37.0-80.0); Platelet Count 201 K/mm3 (142-424); Red Blood Count 5.09 M/mm3 (4.20-5.40); Red Cell Distribution Width 13.5 % (11.5-17.5); White Blood Count 5.9 K/mm3 (4.8-10.8)
[2023-03-12 14:10] LABS: Alanine Aminotransferase 42 U/L (12-78); Albumin Level 4.4 g/dl (3.5-5.0); Alkaline Phosphatase 88 U/L (38-126); Anion Gap 7.8 mEq/L (5-15); Aspartate Amino Transferase 35 U/L (14-36); Bilirubin,Indirect 0.8 mg/dL (0.0-0.9); Bilirubin,Total 0.8 mg/dl (0.2-1.3); Bilirubin,Unconjugated 0.8 mg/dL (0.0-1.1); Blood Urea Nitrogen 14 mg/dl (7-17); Calcium 9.2 mg/dl (8.4-10.2); Carbon Dioxide 29 mmol/L (22.0-30.0); Chloride 105 mmol/L (98-107); Chol/HDL Ratio 6.5 (1-3.5); Cholesterol 203 mg/dl (140-200); Estimated Glomerular Filt Rate 74 ml/min (>60); GFR (African American) 90 ML/MIN (>60); Glucose 111 mg/dl (74-100); HDL Cholesterol 31 mg/dl (40-60); Potassium 4.8 mmoL/L (3.5-5.1); Sodium 137 mmol/L (136-145); Total Protein,Serum 6.9 g/dl (6.3-8.2); Triglycerides 397 mg/dl (30-150); VLDL Cholesterol 79 mg/dL (0-40)
[2023-03-12 14:20] LABS: Direct LDL Cholesterol 104.21 mg/dL (100-129)
[2023-03-12 14:24] LABS: Free T4 (Free Thyroxine) 1.09 ng/dl (0.78-2.19)
[2023-03-12 14:39] LABS: Thyroid Stimulating Hormone 1.29 uIU/mL (0.465-4.68)
== END ==
PROVIDERS: PCP Physician Assistant; Visit Provider Nurse Practitioner
DX: R06.02 Shortness of breath; R07.89 Other chest pain; I10 Essential (primary) hypertension; E78.2 Mixed hyperlipidemia; R60.9 Edema, unspecified; Z72.0 Tobacco use
CPT/HCPCS: 36415; 80048; 80061; 80076; 83735; 84439; 84443; 85025

== ENCOUNTER → 2023-03-20 14:14 | Outpatient (CLI) | payer MEDICARE, OTHER, SELFPAY | PROVIDERS: PCP Physician Assistant; Visit Provider Nurse Practitioner | DX: I51.89 Other ill-defined heart diseases (principal); R06.00 Dyspnea, unspecified; R06.01 Orthopnea; R06.02 Shortness of breath; R60.9 Edema, unspecified | CPT/HCPCS: 93306 ==

== ENCOUNTER → 2023-04-19 12:19 | Outpatient (CLI) | payer MEDICARE, OTHER, SELFPAY ==
--- NOTE | 2023-04-19 | CA_ITS ---
APPROVED REPORT Exam: Pharmacologic Technologist: Sophia Pascual, Ht: 5 ft 5 in Wt: 215 lbs BSA: 2.04 m2 HR: 63 bpm BP: 151/91 mmHg Rhythm: SR Medical History Medical History: HTN Medications: Lisinopril,,,,, Omeprazole,,,,, Aspirin,,,,, Trazadone,,,,, Buspirone,,,,, Albuterol,,,,, Cymbalta,,,,, PropANOLOL,,,,, SpirOnolactone,,,,, Furosemide,,,,, Ozempic,,,,, CaripraAZINE,,,,, Allergies: CIPROFLOXACIN Cardiac Risk Factors: HTN, FHX of CAD, FHX of CAD Stress Test Details Test: LEXISCAN HR Resting HR: 68 bpm Max Heart Rate (APMHR): 164 bpm Max HR Achieved: 109 bpm Target HR (85% APMHR): 139 bpm % of APMHR: 66 Recovery HR: 81 bpm BP Resting BP: 151/91 mmHg Max BP: 171/91 mmHg Recovery BP: 150.0/89.0 mmHg ECG Resting ECG: SR Clinical Exercise duration: 04:00 min Highest Stage Achieved: Exercise capacity: n/a METs Stress ECG Conclusion PT HAD SOB NO ISCHEMIC CHANGES WERE PRESENT WITH STRESS Test Summary REST . . . . . . . Sitting REST 01:28 . . 68 . 151/ 91 . . Stage 1 . . . . . . . Myoview Injected Stage 1 01:00 . . 103 . . . . Stage 2 01:00 . . 106 . 171/ 91 . . Stage 3 01:00 . . 98 . 167/ 86 . . Stage 4 01:00 . . 96 . 166/ 85 . Stop exercise at 04:00 RECOVERY 01:00 . . 90 . 135/ 93 . . RECOVERY 02:00 . . 90 . 155/ 86 . . RECOVERY 03:00 . . 87 . 155/ 86 . . RECOVERY 03:24 . . 85 . 150/ 89 . . Electronically signed by : Erica Mujica, 04/19/2023 22:09:22
--- NOTE | 2023-04-19 12:19 | NM_ITS ---
APPROVED REPORT Exam: Nuclear Stress Test Indication: HTN, HYPERLIPIDEMIA, TOB USE, FM HX, C.P., SOB, PALPITATIONS, FATIGUE Patient Location: Outpatient Stress Tech: Sophia Pascual [place] Tech:Maureen Obrien EMILIsabella RT (R)(N)(M) Ht: 5 ft 5 in Wt: 215 lbs Bra Size: DD HR: 68 bpm BP: 151/91 mmHg BSA: 2.04 m2 TID: 1.07 BMI: 35.7 History: HTN, HYPERLIPIDEMIA, TOB USE, FM HX, C.P., SOB, PALPITATIONS, FATIGUE Procedure: Patient received 0.4 mg of intravenous Lexiscan, resting heart rate 68 bpm, resting blood pressure 151/91 mmHg, with Lexiscan maximum heart rate achieved was 109 bpm which is % of the maximum predicted heart rate and blood pressure was 171/91 mmHg. With Lexiscan, patient denied any complaint of chest pain. Cardiac Stress and Resting SPECT Images: Cardiac Stress and Resting SPECT images were obtained using technetium 99m Myoview 31.6 mCi stress and 10.98 mCi at rest. Resting and supine stress imaging demonstrate a mild fixed perfusion defect in the anterior LV wall that is no longer visualized with prone stress imaging. This finding is most consistent with soft tissue attenuation. Of note, there is marked transient ischemic dilatation ratio (TID=1.5), which may be suggestive of underlying multivessel disease or balanced ischemia, but the specificity of this finding is lower in an otherwise normal SPECT study. Gated imaging demonstrates normal LV global and regional systolic function. LVEF is calculated at 62%. Conclusion: Soft tissue attenuation is present. No evidence of reversible ischemia. Marked transient ischemic dilatation ratio (TID=1.5), which may be suggestive of underlying multivessel disease or balanced ischemia, but the specificity of this finding is lower in an otherwise normal SPECT study. Clinical correlation is recommended. Gated imaging demonstrates normal LV global and regional systolic function. LVEF is calculated at 62%. Compared to the prior SPECT study from 2020, there are no significant changes. Electronically signed by : Erica Mujica, 04/19/2023 22:26:27
== END ==
PROVIDERS: PCP Physician Assistant; Visit Provider Nurse Practitioner
DX: R07.89 Other chest pain; R94.39 Abnormal result of other cardiovascular function study
CPT/HCPCS: 78452; 93017; A9502; J2785

== ENCOUNTER 2023-05-02 10:00 | Emergency (ER) | payer MEDICARE, OTHER, SELFPAY ==
[2023-05-02 10:00] VITALS: BP 154/63; PULSE 77; RESP 18; TEMP 36.7; O2SAT 99; BMI 35.6
--- NOTE | 2023-05-02 10:03 | ECG_ITS ---
APPROVED REPORT Exam: Resting ECG HR:77 bpm ECG Measurements Heart Rate 77 AXES CA 143 P 49 QRSd 93 QRS 60 QT 364 T 67 QTc 396 Conclusion SINUS RHYTHM POSSIBLE RIGHT VENTRICULAR CONDUCTION DELAY [RSR (QR) IN V1/V2] BORDERLINE ECG UNCONFIRMED REPORT Electronically signed by : Juan José Petit MD 05/02/2023 20:59:52
[2023-05-02 10:05] VITALS: BMI 35.6
--- NOTE | 2023-05-02 10:05 | XR_ITS ---
FINAL REPORT TECHNIQUE: Chest PA & Lateral CLINICAL HISTORY: chest pain COMPARISON: 09/24/2019 FINDINGS: 2 views of the chest were performed. Leads are present overlying the chest. The heart size is normal. The mediastinum is within normal limits. There is no acute cardiopulmonary process. There are no pleural effusions. There is no pneumothorax. The bony thorax appears intact. IMPRESSION: No acute cardiopulmonary process. Reviewed, Interpreted and Dictated by Jerome Levy MD Transcribed by Jayshree Paez Authenticated and [facility]
[2023-05-02 10:16] LABS: Basophils # 0.1 K/mm3 (0-0.2); Eosinophils # 0.2 K/mm3 (0.0-0.4); Eosinophils % 2.4 % (0.1-12.0); Hematocrit 46.3 % (37.0-47.0); Hemoglobin 15.2 g/dL (12.2-16.2); Lymphocytes # 2.5 K/mm3 (0.7-4.5); Mean Corpuscular HGB Conc 32.8 g/dL (31.8-35.4); Mean Corpuscular Volume 85.6 fl (81-99); Mean Platelet Volume 9.2 fl (7.4-10.4); Monocytes # 0.4 K/mm3 (0.1-1.0); Monocytes % 5.4 % (1.7-9.3); Neutrophils # 3.4 K/mm3 (1.8-7.8); Neutrophils % 52.2 % (37.0-80.0); Platelet Count 203 K/mm3 (142-424); Red Blood Count 5.41 M/mm3 (4.20-5.40); Red Cell Distribution Width 13.5 % (11.5-17.5); White Blood Count 6.5 K/mm3 (4.8-10.8)
--- NOTE | 2023-05-02 10:24 | PC.NURSE ---
NASREEN JUDD AT
[2023-05-02 10:25] LABS: Anion Gap 15.6 mEq/L (5-15); Blood Urea Nitrogen 18 mg/dl (7-17); Calcium 9.3 mg/dl (8.4-10.2); Carbon Dioxide 30 mmol/L (22.0-30.0); Chloride 100 mmol/L (98-107); Creatinine Clearance Estimated 107 mL/min (50-200); Estimated Glomerular Filt Rate 65 ml/min (>60); GFR (African American) 78 ML/MIN (>60); Glucose 69 mg/dl (74-100); Potassium 3.6 mmoL/L (3.5-5.1); Sodium 142 mmol/L (136-145)
[2023-05-02 10:30] VITALS: BP 129/75; PULSE 82; O2SAT 95
[2023-05-02 10:41] LABS: Troponin I < 0.01 ng/ml (0.00-0.034)
--- NOTE | 2023-05-02 10:47 | HMH.EDGENADL ---
Discharge Plan Disposition Patient Disposition: Home Health Service Condition: Good Prescriptions Prescriptions: No Action duloxetine [Cymbalta] 30 mg capsule,delayed release(DR/EC) 30 mg PO DAILY Qty: 30 2RF hydroxyzine pamoate [Vistaril] 25 mg capsule 25 mg PO TID PRN (Reason: for increased anxiety) Qty: 90 0RF buspirone 10 mg tablet 10 mg PO BID Qty: 60 1RF furosemide 40 mg tablet 40 mg PO DAILY Qty: 90 3RF lisinopril 20 mg tablet 20 mg PO DAILY Qty: 90 3RF spironolactone 100 mg tablet 100 mg PO DAILY Qty: 90 3RF propranolol 60 mg capsule,extended release 24 hr 60 mg PO DAILY Qty: 30 2RF omeprazole 40 mg capsule,delayed release(DR/EC) See Rx Instructions .ROUTE .COMPLEX Qty: 60 3RF Dose Instruction: TAKE ONE CAPSULE BY MOUTH 2 TIMES A DAY FOR GERD Rx Instructions: TAKE ONE CAPSULE BY MOUTH 2 TIMES A DAY FOR GERD albuterol sulfate 90 mcg/actuation HFA aerosol inhaler See Rx Instructions .ROUTE .COMPLEX Qty: 8.5 3RF Dose Instruction: INHALE 2 PUFFS BY MOUTH EVERY 4 TO 6 HOURS DIRECTED Rx Instructions: INHALE 2 PUFFS BY MOUTH EVERY 4 TO 6 HOURS DIRECTED aspirin 81 mg tablet,delayed release (DR/EC) See Rx Instructions .ROUTE .COMPLEX Qty: 30 2RF Dose Instruction: TAKE ONE TABLET BY MOUTH ONCE A DAY FOR HEART DISEASE Rx Instructions: TAKE ONE TABLET BY MOUTH ONCE A DAY FOR HEART DISEASE Referrals Follow up/Referrals: Sobeida Mena PA [Primary Care Provider] - See instructions Activity Restrictions/Add. Instructions Additional Instructions/Restrictions: Follow-up PCP/cardiology. Return to ER for worsening Clinical Impressions Clinical Impression: Chronic epigastric pain Discharge ED Provider: Jasper Aldana General Adult HPI General Chief complaint: Chest Pain Stated complaint: chest pain Time Seen by Provider: 05/02/23 10:03 Mode of Arrival: Ambulatory Source of Information: Patient Limitations: No Limitations Description of Symptoms (Recalled from ER Triage Doc. by RN): c/o chest, back and upper gastric pain for a few months, states that the pain has increased more today. States she had a stress test a few months ago and showed she has damaged to her heart. History of Present Illness HPI narrative: 57yo F presents to the ER secondary to epigastric pain and back pain has been ongoing for several months. Went to her PCP office today for a follow-up visit and was directed to the ER secondary to her pain that has been ongoing for months. She reports chronic shortness of breath worse with exertion. Reports a history of COPD. Underwent heart catheterization years ago and was told she had minor blockages that did not warrant stenting at that time. Recently had a stress test that was abnormal and is pending follow-up with cardiology on May 13. She reports no acute change in her condition. Related Data Previous Rx's Medication Instructions Recorded omeprazole 40 mg capsule,delayed See Rx Instructions .Route 11/28/22 release .COMPLEX #60 caps furosemide 40 mg tablet 40 mg PO DAILY Fluid #90 tabs 12/17/22 lisinopril 20 mg tablet 20 mg PO DAILY #90 tabs 12/17/22 propranolol 60 mg capsule,24 60 mg PO DAILY #30 caps 12/17/22 hr,extended release spironolactone 100 mg tablet 100 mg PO DAILY Fluid #90 tabs 12/17/22 buspirone 10 mg tablet 10 mg PO BID #60 tabs 12/20/22 duloxetine 30 mg capsule,delayed 30 mg PO DAILY #30 caps 12/20/22 release (Cymbalta) hydroxyzine pamoate 25 mg capsule 25 mg PO TID PRN for increased 12/20/22 (Vistaril) anxiety #90 caps albuterol sulfate 90 mcg/actuation See Rx Instructions .Route 01/21/23 aerosol inhaler .COMPLEX #8.5 grams aspirin 81 mg tablet,delayed See Rx Instructions .Route 02/07/23 release .COMPLEX #30 tabs Allergies Allergy/AdvReac Type Severity Reaction Status Date / Time ciprofloxacin [From CIPRO] Allergy Unknown HIVES/RASH Verified 05/02/23 09:09 [facility]
[2023-05-02 11:01] VITALS: BP 119/68; PULSE 75; O2SAT 96
[2023-05-02 11:48] VITALS: BP 119/68; PULSE 71; PULSE 72; RESP 20; TEMP 36.7; O2SAT 94
== END 2023-05-02 11:10 | disposition home health service (06) ==
PROVIDERS: Emergency Provider Family Medicine; PCP Physician Assistant
DX: R07.9 Chest pain, unspecified (principal); J44.9 Chronic obstructive pulmonary disease, unspecified; I10 Essential (primary) hypertension; F33.9 Major depressive disorder, recurrent, unspecified; M54.9 Dorsalgia, unspecified
CPT/HCPCS: 71046; 80048; 84484; 85025; 93005; 99285

== ENCOUNTER → 2023-06-20 11:00 | Outpatient (CLI) | payer MEDICARE, OTHER, SELFPAY ==
[2023-06-20 14:59] LABS: Anion Gap 11.3 mEq/L (5-15); Blood Urea Nitrogen 11 mg/dl (7-17); Calcium 9.2 mg/dl (8.4-10.2); Carbon Dioxide 27 mmol/L (22.0-30.0); Chloride 105 mmol/L (98-107); Estimated Glomerular Filt Rate 65 ml/min (>60); GFR (African American) 78 ML/MIN (>60); Glucose 100 mg/dl (74-100); Potassium 4.3 mmoL/L (3.5-5.1); Sodium 139 mmol/L (136-145)
== END ==
PROVIDERS: Visit Provider Nurse Practitioner
DX: Q24.5 Malformation of coronary vessels (principal); R93.1 Abnormal findings on diagnostic imaging of heart and coronary circulation
CPT/HCPCS: 36415; 80048

== ENCOUNTER → 2023-08-02 08:37 | Outpatient (CLI) | payer MEDICARE, OTHER, SELFPAY ==
--- NOTE | 2023-08-02 08:44 | XR_ITS ---
FINAL REPORT CLINICAL HISTORY: Bone pain COMPARISON: None FINDINGS: Using L1-4, the bone mineral density of the spine is 0.988 g/cm2, corresponding to T-score of -0.5, within normal limits.. Using the left hip, the bone mineral density of the femoral neck is 0.754 g/cm2, corresponding to a T-score of -0.9, within normal limits. Using the right hip, the bone mineral density of the femoral neck is 0.710 g/cm2, corresponding to a T-score of -1.2, consistent with osteopenia. FRAX not reported because patient is premenopausal. NOTE: T-score: Standard deviation compared with peak bone mass of young adult mean. *Following the recommendations of the International Society of Bone densitometry, classification of hip BMD is based on the lower of two T-scores; total hip or femoral neck. IMPRESSION: Diminished bone mineral density consistent with osteopenia. Reviewed, Interpreted and Dictated by Jerome Levy MD Transcribed by Yasmin Millan Authenticated and [facility]
== END ==
PROVIDERS: PCP Physician Assistant; Visit Provider Nurse Practitioner Family
DX: Z83.49 Family history of other endocrine, nutritional and metabolic diseases (principal); M19.021 Primary osteoarthritis, right elbow; M85.89 Other specified disorders of bone density and structure, multiple sites
CPT/HCPCS: 77080

== ENCOUNTER → 2023-08-27 15:16 | Outpatient (CLI) | payer MEDICARE, OTHER, SELFPAY ==
--- NOTE | 2023-08-27 15:31 | XR_ITS ---
FINAL REPORT TECHNIQUE: 5 views CLINICAL HISTORY: neck pain, worse on rt side COMPARISON: None FINDINGS: There is no fracture present. There is no malalignment. There are multilevel degenerative changes present in the cervical spine, most prominently at the C6-7 level. No prevertebral soft tissue swelling is identified. IMPRESSION: No acute process. Multilevel degenerative change, most severe at the C6-7 level. Reviewed, Interpreted and Dictated by Jillian Choudhruy MD Transcribed by Jayshree Paez Authenticated and [facility]
[2023-08-27 17:07] LABS: Alanine Aminotransferase 25 U/L (12-78); Albumin Level 4.2 g/dl (3.5-5.0); Albumin/Globulin Ratio 1.4 (1.1-1.8); Alkaline Phosphatase 95 U/L (38-126); Anion Gap 13.3 mEq/L (5-15); Aspartate Amino Transferase 23 U/L (14-36); Bilirubin,Total 0.6 mg/dl (0.2-1.3); Blood Urea Nitrogen 16 mg/dl (7-17); Calcium 9.5 mg/dl (8.4-10.2); Carbon Dioxide 24 mmol/L (22.0-30.0); Chloride 106 mmol/L (98-107); Estimated Glomerular Filt Rate 46 ml/min (>60); GFR (African American) 56 ML/MIN (>60); Glucose 111 mg/dl (74-100); Potassium 4.3 mmoL/L (3.5-5.1); Sodium 139 mmol/L (136-145); Total Protein,Serum 7.2 g/dl (6.3-8.2)
[2023-08-27 17:56] LABS: Vitamin B12 310 pg/mL (239-931)
[2023-08-27 20:03] LABS: Iron 73 ug/dL (37-170)
[2023-08-27 20:13] LABS: Total Iron Binding Capacity 290 ug/dL (265-497)
[2023-08-27 20:40] LABS: Ferritin 137 ng/ml (11.1-264)
[2023-08-29 12:13] LABS: Anti-Centromere B Antibodies <0.2 AI (0.0-0.9); Anti-DNA (DS) Ab Qn <1 IU/mL (0-9); Anti-Jo-1 <0.2 AI (0.0-0.9); Anti-Smith Antibody <0.2 AI (0.0-0.9); Antichromatin Antibodies <0.2 AI (0.0-0.9); Antiscleroderma-70 Antibodies <0.2 AI (0.0-0.9); RNP Antibodies <0.2 AI (0.0-0.9); Sjogren's Anti-SS-A <0.2 AI (0.0-0.9); Sjogren's Anti-SS-B <0.2 AI (0.0-0.9)
[2023-08-29 21:42] LABS: Anti-Cyclic Citrullinated Pept 4 units (0-19); RA Latex Turbid. 10.6 IU/mL (<14.0)
[2023-09-03 07:42] LABS: C-Reactive Protein 7.5 mg/L (0-4)
[2023-09-09 22:45] LABS: APTT 26.1 sec (.); Anti-Cardiolipin Antibody IgG <10 GPL (.); Anti-Cardiolipin Antibody IgM <10 MPL (.); Beta-2 Glycoprotein I Ab, IgA <10 SAU (.); Beta-2 Glycoprotein I Ab, IgG <10 SGU (.); Beta-2 Glycoprotein I Ab, IgM <10 SMU (.); Hexagonal Phase Phospholipid 6 sec (.); Prothrombin Time 10.3 sec (.); Thrombin Time 16.8 sec (.)
== END ==
PROVIDERS: PCP Physician Assistant; Visit Provider Physician Assistant
DX: M25.50 Pain in unspecified joint (principal); M79.601 Pain in right arm; M79.2 Neuralgia and neuritis, unspecified; R73.09 Other abnormal glucose; C43.9 Malignant melanoma of skin, unspecified
CPT/HCPCS: 36415; 72050; 80053; 82607; 82728; 83540; 83550; 85597; 85598; 85610; 85613; 85670; 85730; 86140; 86146; 86147; 86200; 86225; 86235; 86431

== ENCOUNTER → 2023-08-28 10:42 | Outpatient (CLI) | payer MEDICARE, OTHER, SELFPAY ==
[2023-08-28 11:12] LABS: Basophils % 0.6 % (0.1-2.0); Eosinophils # 0.1 K/mm3 (0.0-0.4); Eosinophils % 3.2 % (0.1-12.0); Hematocrit 42.8 % (37.0-47.0); Hemoglobin 13.7 g/dL (12.2-16.2); Lymphocytes # 1.8 K/mm3 (0.7-4.5); Lymphocytes % 39.1 % (10-50); Mean Corpuscular HGB Conc 31.9 g/dL (31.8-35.4); Mean Corpuscular Hemoglobin 28.1 pg (27.0-31.2); Mean Corpuscular Volume 88.1 fl (81-99); Mean Platelet Volume 8.4 fl (7.4-10.4); Monocytes # 0.2 K/mm3 (0.1-1.0); Monocytes % 3.9 % (1.7-9.3); Neutrophils # 2.4 K/mm3 (1.8-7.8); Neutrophils % 53.2 % (37.0-80.0); Platelet Count 180 K/mm3 (142-424); Red Blood Count 4.86 M/mm3 (4.20-5.40); Red Cell Distribution Width 12.8 % (11.5-17.5); White Blood Count 4.5 K/mm3 (4.8-10.8)
[2023-08-28 14:01] LABS: Erythrocyte Sedimentation Rate 17 mm/hr (0-30)
[2023-08-29 12:13] LABS: Anti-DNA (DS) Ab Qn <1 IU/mL (0-9)
== END ==
PROVIDERS: PCP Physician Assistant; Visit Provider Physician Assistant
DX: M25.50 Pain in unspecified joint (principal); M79.601 Pain in right arm
CPT/HCPCS: 85025; 85651; 86225

== ENCOUNTER → 2023-09-17 16:34 | Outpatient (CLI) | payer MEDICARE, OTHER, SELFPAY ==
--- NOTE | 2023-09-17 16:35 | MR_ITS ---
PROCEDURE INFORMATION: Exam: MR Cervical Spine Without Contrast Exam date and time: 09/17/2023 4:53 PM Age: 58 years old Clinical indication: Neck pain; Additional info: Neck pain, rle radiculopathy TECHNIQUE: Imaging protocol: Magnetic resonance imaging of the cervical spine without contrast. COMPARISON: CR XR CERVICAL SPINE 4V 08/27/2023 3:36 PM FINDINGS: Bones/joints: Vertebral body heights are preserved. Marrow signal is within normal limits. There is straightening and slight reversal of normal cervical lordosis. There is lower cervical spondylosis with disc ridging, facet arthropathy and uncovertebral spurring. Spinal cord: The cervical cord is normal in overall caliber with mild myelopathic change centrally at the C5 and C6 level. C2-C3: At C2-C3 there is a small central protrusion which indents the thecal sac and midline but does not compress the cord. There is no significant neural foraminal narrowing. C3-C4: At C3-C4 there is broad-based disc ridge with facet arthropathy and uncovertebral spurring. There is effacement of the anterior thecal sac and flattening of the anterior surface of the cord. There is no significant neural foraminal narrowing. C4-C5: At C4-C5 there is disc ridging, slightly more prominent on the left which effaces the left lateral recess but does not significantly compress the cord. There is mild to moderate left neural foraminal narrowing. C5-C6: At C5-C6 there is broad-based disc ridge with facet arthropathy and uncovertebral spurring, slightly more prominent on the left causing moderate canal narrowing and flattening of the anterior surface of the cord. There is moderate right-sided and severe left-sided neural foraminal narrowing. C6-C7: At C6-C7 there is a broad-based disc ridge eccentric to the right which effaces the anterior thecal sac and flattens the anterior surface of the cord slightly on the left. There is severe neural foraminal narrowing. C7-T1: At C7-T1 there is no significant canal or foraminal narrowing. Soft tissues: Unremarkable. Vasculature: Expected flow voids in the vertebral arteries. IMPRESSION: Multilevel cervical spondylosis as described, most severe at C5-C6.
== END ==
PROVIDERS: PCP Physician Assistant; Visit Provider Physician Assistant
DX: M54.50 Low back pain, unspecified (principal); M54.2 Cervicalgia; M54.16 Radiculopathy, lumbar region
CPT/HCPCS: 72141; 76376

== ENCOUNTER 2023-09-18 21:11 | Emergency (ER) | payer MEDICARE, OTHER, SELFPAY ==
[2023-09-18 21:11] VITALS: BP 125/78; PULSE 106; RESP 14; TEMP 36.9; O2SAT 96; BMI 35.7
[2023-09-18 21:52] LABS: Coronavirus 19, PCR Not Detected (NotDetected); Influenza A, PCR Not Detected (NotDetected); Influenza B, PCR Not Detected (NotDetected)
--- NOTE | 2023-09-18 21:58 | XR_ITS ---
PROCEDURE INFORMATION: Exam: XR Chest Exam date and time: 09/18/2023 9:53 PM Age: 58 years old Clinical indication: Patient HX: PT states productive cough, pain when coughing TECHNIQUE: Imaging protocol: Radiologic exam of the chest. Views: 2 views. COMPARISON: CR XR CHEST 2V 05/02/2023 10:06 AM FINDINGS: Lungs: Subtle interstitial haziness could reflect interstitial pneumonia. No consolidation. Pleural spaces: Unremarkable. No pleural effusion. No pneumothorax. Heart/Mediastinum: Unremarkable. No cardiomegaly. Bones/joints: Unremarkable. IMPRESSION: Subtle interstitial haziness could reflect interstitial pneumonia.
--- NOTE | 2023-09-18 22:41 | HMH.EDGENADL ---
Discharge Plan Disposition Patient Disposition: Home, Self-Care Condition: Good Prescriptions Prescriptions: New amoxicillin-pot clavulanate 875-125 mg tablet 1 tab PO BID Qty: 14 0RF doxycycline hyclate 100 mg capsule 100 mg PO BID 7 Days Qty: 14 0RF No Action propranolol 60 mg capsule,extended release 24 hr 60 mg PO methylprednisolone [Medrol (Ortiz)] 4 mg tablets,dose pack 4 mg PO PER PKG DIR 6 Days Qty: 21 0RF pregabalin [Lyrica] 75 mg capsule 75 mg PO TID Qty: 90 0RF clonazepam [Klonopin] 1 mg tablet 1 mg PO BID Qty: 60 0RF naproxen 500 mg tablet 500 mg PO BID Qty: 30 0RF albuterol sulfate 90 mcg/actuation HFA aerosol inhaler See Rx Instructions .ROUTE .COMPLEX Qty: 18 0RF Dose Instruction: INHALE 2 PUFFS BY MOUTH EVERY 4 TO 6 HOURS DIRECTED Rx Instructions: INHALE 2 PUFFS BY MOUTH EVERY 4 TO 6 HOURS DIRECTED furosemide 40 mg tablet 40 mg PO DAILY 90 Days Qty: 90 3RF lisinopril 20 mg tablet 20 mg PO DAILY 90 Days Qty: 90 3RF omeprazole 40 mg capsule,delayed release(DR/EC) See Rx Instructions .ROUTE .COMPLEX 90 Days Qty: 60 2RF Dose Instruction: TAKE ONE CAPSULE BY MOUTH 2 TIMES A DAY FOR GERD Rx Instructions: TAKE ONE CAPSULE BY MOUTH 2 TIMES A DAY FOR GERD spironolactone 100 mg tablet 100 mg PO DAILY 90 Days Qty: 90 3RF alendronate 70 mg tablet 70 mg PO WEEKLY Qty: 5 2RF aspirin 81 mg tablet,delayed release (DR/EC) See Rx Instructions .ROUTE .COMPLEX Qty: 30 0RF Dose Instruction: TAKE ONE TABLET BY MOUTH ONCE A DAY FOR HEART DISEASE Rx Instructions: TAKE ONE TABLET BY MOUTH ONCE A DAY FOR HEART DISEASE cyanocobalamin (vitamin B-12) 5,000 mcg tablet,disintegrating 5,000 mcg PO DAILY Qty: 90 0RF Referrals Follow up/Referrals: Sobeida Mena PA [Primary Care Provider] - See instructions Activity Restrictions/Add. Instructions Additional Instructions/Restrictions: You have been evaluated in the ED for your complaints. You may follow-up with your PCP in the next 3 to 5 days. Please return to ED for any new or worsening symptoms. I have written for prescriptions for Augmentin and doxycycline to treat your pneumonia. Please take these medications as prescribed. If you develop fevers please take Tylenol and Motrin as needed. Clinical Impressions Clinical Impression: Acute interstitial pneumonia Instructions Patient Instructions: Pneumonia-Adult Discharge ED Provider: Hemal Alegria Adult HPI General Chief complaint: Upper Respiratory Infection Stated complaint: SOA, lung pain Time Seen by Provider: 09/18/23 22:03 Mode of Arrival: Ambulatory Source of Information: Patient Limitations: No Limitations Description of Symptoms (Recalled from ER Triage Doc. by RN): pt reports 1 day of cough, SOA, headache, fever and sore throat, reports taking a home covid test yesterday that was negative. pt reports taking Motrin 1 hour [employer] History of Present Illness HPI narrative: 58-year-old female with past medical history significant for anxiety, depression, diabetes, HLD, HTN, BIPIN, GERD, COPD, presents today for evaluation concerning cough, congestion, sore throat, ear pain, subjective fevers, chills, shortness of breath over the past 2 days. Cough has been productive. Patient states that she also has chest tightness secondary to her cough. She denies any recent sick contacts. Has not taken any medications to assist with her symptoms. Came to ED for evaluation. Related Data Home Medications Medication Instructions Recorded Confirmed propranolol 60 mg capsule,24 60 mg PO 08/27/23 08/27/23 hr,extended release Previous Rx's Medication Instructions Recorded albuterol sulfate 90 mcg/actuation See Rx Instructions .Route 06/11/23 aerosol inhaler .COMPLEX #18 grams furosemide 40 mg tablet 40 mg PO DAILY Fluid 90 days #90 07/19/23 tabs lisinopril 20 mg tablet 20 mg PO
--- NOTE | 2023-09-18 23:11 | ECG_ITS ---
APPROVED REPORT Exam: Resting ECG HR:81 bpm ECG Measurements Heart Rate 81 AXES OH 126 P 49 QRSd 86 QRS 58 QT 385 T 65 QTc 423 Conclusion SINUS RHYTHM NORMAL ECG UNCONFIRMED REPORT Electronically signed by : Juan José Petit MD 09/19/2023 10:08:35
[2023-09-18 23:41] VITALS: BP 121/71; PULSE 90; RESP 16; TEMP 36.9; O2SAT 96
== END 2023-09-18 23:42 | disposition home or self-care (01) ==
PROVIDERS: Emergency Provider Emergency Medicine; PCP Physician Assistant
DX: J84.9 Interstitial pulmonary disease, unspecified (principal); R06.02 Shortness of breath; F17.210 Nicotine dependence, cigarettes, uncomplicated; J44.9 Chronic obstructive pulmonary disease, unspecified; I20.9 Angina pectoris, unspecified; I10 Essential (primary) hypertension; G47.00 Insomnia, unspecified; F33.9 Major depressive disorder, recurrent, unspecified; E55.9 Vitamin D deficiency, unspecified
CPT/HCPCS: 71046; 87636; 93005; 99284

== ENCOUNTER → 2023-09-30 11:50 | Outpatient (CLI) | payer MEDICARE, OTHER, SELFPAY ==
[2023-09-30 12:18] LABS: Basophils % 0.6 % (0.1-2.0); Eosinophils # 0.1 K/mm3 (0.0-0.4); Eosinophils % 1.9 % (0.1-12.0); Hematocrit 39.9 % (37.0-47.0); Hemoglobin 13.8 g/dL (12.2-16.2); Lymphocytes # 2.2 K/mm3 (0.7-4.5); Lymphocytes % 33.5 % (10-50); Mean Corpuscular HGB Conc 34.7 g/dL (31.8-35.4); Mean Corpuscular Hemoglobin 30.1 pg (27.0-31.2); Mean Platelet Volume 8.6 fl (7.4-10.4); Monocytes # 0.3 K/mm3 (0.1-1.0); Monocytes % 4.2 % (1.7-9.3); Neutrophils # 3.9 K/mm3 (1.8-7.8); Neutrophils % 59.9 % (37.0-80.0); Platelet Count 196 K/mm3 (142-424); Red Blood Count 4.58 M/mm3 (4.20-5.40); Red Cell Distribution Width 13.2 % (11.5-17.5); White Blood Count 6.5 K/mm3 (4.8-10.8)
[2023-09-30 13:07] LABS: Alanine Aminotransferase 25 U/L (12-78); Alkaline Phosphatase 102 U/L (38-126); Anion Gap 11.3 mEq/L (5-15); Aspartate Amino Transferase 26 U/L (14-36); Bilirubin,Direct 0.1 mg/dl (0.0-0.4); Bilirubin,Indirect 0.3 mg/dL (0.0-0.9); Bilirubin,Total 0.4 mg/dl (0.2-1.3); Bilirubin,Unconjugated 0.3 mg/dL (0.0-1.1); Blood Urea Nitrogen 10 mg/dl (7-17); Calcium 9.1 mg/dl (8.4-10.2); Carbon Dioxide 26 mmol/L (22.0-30.0); Chloride 106 mmol/L (98-107); Chol/HDL Ratio 6.4 (1-3.5); Cholesterol 153 mg/dl (140-200); Estimated Glomerular Filt Rate 86 ml/min (>60); GFR (African American) 104 ML/MIN (>60); Glucose 107 mg/dl (74-100); HDL Cholesterol 24 mg/dl (40-60); Magnesium 1.7 mg/dl (1.6-2.3); Potassium 4.3 mmoL/L (3.5-5.1); Sodium 139 mmol/L (136-145); Total Protein,Serum 6.8 g/dl (6.3-8.2); Triglycerides 388 mg/dl (30-150); VLDL Cholesterol 78 mg/dL (0-40)
[2023-09-30 13:18] LABS: Direct LDL Cholesterol 83.35 mg/dL (100-129)
[2023-09-30 13:23] LABS: Free T4 (Free Thyroxine) 1.44 ng/dl (0.78-2.19)
[2023-09-30 13:36] LABS: Thyroid Stimulating Hormone 0.99 uIU/mL (0.465-4.68)
[2023-09-30 13:43] LABS: Hemoglobin A1C 6.3 % (4.0-6.0)
== END ==
PROVIDERS: PCP Physician Assistant; Visit Provider Nurse Practitioner
DX: K21.9 Gastro-esophageal reflux disease without esophagitis (principal); G47.9 Sleep disorder, unspecified; R73.03 Prediabetes; I10 Essential (primary) hypertension; E78.5 Hyperlipidemia, unspecified
CPT/HCPCS: 36415; 80048; 80061; 80076; 83036; 83735; 84439; 84443; 85025

== ENCOUNTER → 2023-10-07 09:33 | Outpatient (POV) | payer MEDICARE, OTHER, SELFPAY ==
--- NOTE | 2023-10-07 09:53 | EXP.PAIN.OV ---
HPI Data of Consult Patient: new to practice Consult date: 10/07/23 Requesting Physician: Saundra Whiting APRN Primary Care Provider: SAM Andujar Consult Narrative Reason for consult: Neck pain, bilateral shoulder pain, altered chocolate temperer History of present illness: Ms. Buenrostro is a 58 year old female who presents today as a new patient. She is a referral from Sobeida Mena's office. Today she rates her pain an 8 out of 10. Patient states her pain is all in her neck and into her bilateral shoulders as well as her arms with numbness and tingling and altered chocolate temperer. Patient does describe her pain as an aching, throbbing sensation that is with increased activity. Patient does state that this has been going on for years and progressively worsened over time. Patient denies any specific trauma or injury that initially led to her symptoms. 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 She does state the pain interferes with her ability perform activities of daily living such as cooking cleaning. She states that she does take care of her who is in the wheelchair and would like to be able to be more functional on a day-to-day basis. Patient does state that she has had a recent EMG test with no acute findings. Patient states she did go to the chiropractor and had no additional improvement. Patient has tried [id number] Tylenol and ibuprofen along with heat and ice and topicals with minimal relief. She is currently ordered physical therapy however she has not quite started this yet. Patient denies any previous injection or surgical history. Patient was given Lortab from her PCP however this did make her sick to her stomach. She is currently managed with clonazepam 1 mg twice a day and pregabalin 75 mg 3 times a day from her PCP. Her Robby has been reviewed and is appropriate. CC: Saundra Whiting APRN [facility] Disclaimer: The information contained in this section may have been updated after the patient was seen, as this information can be updated by other users. Medical History (Updated 10/07/23 @ 10:11 by Saundra Whiting APRN) Abnormal cardiovascular stress test Acute bronchitis Atypical angina Chest pain Chronic headaches Claudication COPD (chronic obstructive pulmonary disease) Depression Edema Encounter for pre-operative cardiovascular clearance Exposure to COVID-19 virus Fatigue FH: early menopause Fibromyalgia Headache HTN (hypertension) Hx of malignant melanoma Insomnia Laceration of thumb Lightheaded Myocardial bridge Recurrent major depression resistant to treatment Thyroid enlarged Tobacco abuse Viral upper respiratory infection Vitamin D deficiency Surgical History History of ankle surgery History of appendectomy History of colonoscopy Social History (Updated 10/07/23 @ 09:40 by Monse Clay RN) Smoking Status: Current every day smoker tobacco type: cigarettes packs per day: 2 second hand exposure: Yes alcohol intake: never substance use type: denies use current occupational status: disabled Travel in the last 8 weeks: None household members: family housing: house number of children: 2 current occupational exposures/hazards: No caffeine: Yes Review of Systems Review of Systems Review of systems:: pertinent systems reviewed and negative unless documented below Review of systems (narrative): Review of Systems: General: No recent weight changes, no fever, no sleep disturbances Respiratory: No cough, no shortness of air, no recurring pulmonary infections Cardiovascular/peripheral vascular: No chest pain, no palpitations, no edema, no shortness of breath Gastrointestinal: No new onset incontinence, normal bowel movements reported Genitourinary: No new onset incontinence Musculoskeletal: Neck pain, shoulder pain, bilateral arm/hand pain Psychiatric: [Normal mood/affect] N
[2023-10-07 10:32] VITALS: BP 175/92; PULSE 75; RESP 18; O2SAT 95; BMI 35.7
== END ==
LOC: SC.PAIN 09:34
PROVIDERS: PCP Physician Assistant; Visit Provider Nurse Practitioner Family
DX: M48.02 Spinal stenosis, cervical region; M25.511 Pain in right shoulder; M25.512 Pain in left shoulder; G89.29 Other chronic pain; M79.601 Pain in right arm; M79.602 Pain in left arm; M79.18 Myalgia, other site; M50.10 Cervical disc disorder with radiculopathy, unspecified cervical region; M47.22 Other spondylosis with radiculopathy, cervical region
CPT/HCPCS: 99202; G0463

== ENCOUNTER 2023-10-22 09:30 | Day surgery (SDC) | payer MEDICARE, OTHER, SELFPAY ==
[2023-10-22 09:46] VITALS: BP 141/96; PULSE 85; RESP 16; TEMP 36.5; O2SAT 95; BMI 35.7
[2023-10-22 09:47] VITALS: BP 151/92; PULSE 90; O2SAT 95
[2023-10-22 09:55] VITALS: BP 151/92; PULSE 89; O2SAT 95
--- NOTE | 2023-10-22 09:56 | P.PCN_ITS ---
Procedure Date: 10/22/23 Time: 09:45 Anesthesiologist:: Israel Mclean CRNA Complications:: None Pre-procedure Diagnosis:: Degenerative disc cervical spine multilevels. Cervical radiculopathy. Post-procedure Diagnosis:: Same. Indications for Procedure:: Patient is a very pleasant 58-year-old female comes our clinic today for a cervical epidural steroid injection. Patient has posterior cervical neck pain she describes as constant, dull, aching. Patient also describes bilateral arm radicular symptoms at times. She rates her pain 8/10. Procedure Details:: Procedure:Cervical epidural steroid injection Informed consent was obtained and the risks and benefits of the procedure were explained to the patient. The patient was taken to the procedure room and noninvasive monitors placed, including noninvasive blood pressure cuff and pulse oximeter. The neck was prepped using Chloraprep as a cleansing solution. The C6- C7 interspace was viewed using fluroscopy. The skin and subcutaneous tissues were anesthetized using lidocaine 1.5% and a 25-gauge needle. After this an 18- gauge Touhy epidural needle was placed into the C6-C7 interspace under fluroscopy guidance and advanced using loss of resistance to air until the epidural space was encountered. After confirmation of needle placement in the epidural space using contrast dye, a solution containing normal saline, 2 mL and Depo-Medrol 80 mg was incrementally injected into the cervical epidural space.~ The patient tolerated the procedure well with no complications. The patient was observed in the Pain Clinic and then discharged home neurologically intact. Plan and Disposition:: Patient was discharged without incident.
[2023-10-22 10:00] VITALS: BP 151/92; PULSE 80; RESP 18; O2SAT 95
== END 2023-10-22 10:00 | disposition home or self-care (01) ==
PROVIDERS: PCP Physician Assistant; Visit Provider Nurse Anesthetist, Certified Registered
DX: M50.123 Cervical disc disorder at C6-C7 level with radiculopathy (principal)
CPT/HCPCS: 62321; J1040

== ENCOUNTER 2023-10-31 13:00 | Outpatient (RCR) | payer MEDICARE, OTHER, SELFPAY ==
--- NOTE | 2023-10-14 14:55 | HMH.PTOPEV ---
PT Outpatient Evaluation Rehab PT Outpatient Evaluation Start: 10/14/23 13:52 Freq: Status: Active Protocol: Document 10/14/23 14:39 PHOEPI (Rec: 10/14/23 14:55 PHORSHELTON [id number]) E-signed By Rober Avila, PT Outpatient Therapy Subjective History Subjective History This is the initial PT eval for Ekta Buenrostro, 58 yowf who presents with c/o neck pain x ~ 4 yrs with insidious onset of symptoms. She reports frequent headaches and increased pain with all movement of her head. She had MRI performed which shows disc bulges from C3-C7 vertebral levels and EMG performed which shows no nerve conduction latency on either UE. She reports PMH of COPD, depression, fibromyalgia, HTN. New diagnosis of cancer in past 12 No months? Chief Complaint Pain,Stiff Symptom Type Ache,Throb,Burning Symptoms Relieved By Rest/Positioning Symptoms Aggravated By Sitting,Standing,Physical Activity Prior Functional Limitations None Current Functional Limitations Reaching,Lifting,Housework, Sleeping,Recreation Activity Symptom Description Constant but Variable Level of pain today (0-10) 9 Pain scale - at its best (0-10) 5 Pain scale - at its worst (0-10) 10 Cervical Eval Palpation Cervical Muscles R Cervical Paraspinal,L Cervical Paraspinal,R Upper Trapezius,L Upper Trapezius,R Thoracic Paraspinals,L Thoracic Paraspinals Cervical/Thoracic Palpation Findings Tenderness Flexibility Deficits Upper Trapezius Muscle Length (R) Mild Tightness,(L) Mild Tightness Levaetor Scapulae Muscle Length (R) Mild Tightness,(L) Mild Tightness Pectoralis Major Muscle Length (R) Mild Tightness,(L) Mild Tightness Passive Joint Mobility Cervical PIVM Dec: R C2/3 L C2/3 R C3/4 L C3/4 R C4/5 L C4/5 R C5/6 L C5/6 R C6/7 L C6/7 R C7/T1 L C7/T1 WNL: R OA L OA R AA L AA AROM Cervical Spine Extension Active Range of 0-50 Motion (degrees) Cervical Spine Flexion Active Range of 0-40 Motion (degrees) Cervical Spine Right Lateral Flexion 0-30 Active Range of Motion (degrees) Cervical Spine Left Lateral Flexion 0-20 Active Range of Motion (degrees) Cervical Spine Right Rotation Active 0-45 Range of Motion (degrees) Cervical Spine Left Rotation Active 0-45 Range of Motion (degrees) MMT Bilateral Deltoid (C5) 4 Good Biceps Brachii Strength Grade 4 Good Wrist Extension Strength Grade 4 Good Triceps Brachii Strength Grade 4 Good Wrist Flexion Strength Grade 5 Normal Extensor Pollicis Longus Strength Grade 5 Normal Finger Abduction Strength Grade 5 Normal Special Test C-Spine Foraminal Compression ([place]) Negative Left,Positive Right Test C-spine Verterbral Accessory Movements Central P/A [place] that Elicit Symptoms C-Spine Foraminal Distraction Test Positive Neck Disability Index Neck Disability Index Section 1: Pain Intensity The pain is very severe at the moment Section 2: Personal Care (washing, I can look after myself dressing, etc.) normally but it causes extra pain Section 3: Lifting I can lift heavy weights but it gives extra pain Section 4: Reading I can't read as much as I want because of moderate pain in my neck Section 5: Headaches I have severe headaches, which come frequently Section 6: Concentration I have a fair degree of difficulty in concentrating when I want to Section 7: Work I can hardly do any work at all Section 8: Driving I can hardly drive at all because of severe pain in my neck Section 9: Sleeping My sleep is greatly disturbed (3-5 hrs sleepless) Section 10: Recreation I am able to engage in a few of my usual recreation activities because NDI Score 30 Outpatient Therapy Assessment Impairments Problems/Impairmments Palpation Tenderness,Impaired Range of Motion,Impaired Strength,Impaired Endurance, Impaired Standing,Impaired Sitting,Impaired Driving, Impaired Lifting,Impaired Shower/Bathing,Impaired Household Care,Impaired Recreational Activities, Subjective C/O Pain,Impaired Self Care/Self Management Prognosis Rehab Potential Good Clinical Impression Consistent with Diagnosis Yes Short Term Goals Number of Weeks 2 Decreased Palpation Tenderness Yes: 01/05 B Cerv and Thor paraspinals Increase Range of Motion Yes: CROM by 5 deg all dir Increase Strength Yes: B UE 4+/5 throughout Improve Neck Disability Index Score Yes: 25 Decrease Subjective C/O Pain Yes: 06/10 Patient to be Ind w/ HEP Yes Hand Sign Writer Goals Number of Weeks 4 Decreased Palpation Tenderness Yes: 12/05 B Cerv and Thor paraspinals Increase Range of Motion Yes: CROM by 10 deg all dir Increase Strength Yes: B UE 5/5 throughout Improve Ability to Shower/Bathe Self Yes: without pain Improve Neck Disability Index Score Yes: 20 Decrease Subjective C/O Pain Yes: 03/11 Patient to be Ind w/ Advanced HEP Yes Outpatient Therapy Plan of Care Treatment Plan May Include Therapeutic Exercise Including Home Yes Exercise Program Manual Therapy Techniques Yes Neuromuscular Re-education Yes Therapeutic Activities to Return to Yes Previous Functional/Work Level ADL/Self Care Education Yes Thermal Modalities Yes Electrical Stimulation Yes Ultrasound/Phonophoresis Yes Iontophoresis Yes Orthotics/Bracing/Splinting Yes Massage Yes Eval/Re-Eval Yes Frequency Times per week 2 Duration Number of Weeks 4 Addendums This patient is a candidate for social No or vocational rehab? Patient/Guardian verbally acknowledges Yes understanding of treatment program and consents to further treatment? Patient/Guardian verbally acknowledges Yes understanding of diagnosis, prognosis and goals for treatment? Eval Complexity PT Charges 48287 - High Complexity Shoulder/Elbow Eval Shoulder Objective Measurements Elbow Objective Measurements PHYSICIAN CERTIFICATION: I certify the specified therapy services for Ekta Buenrostro are required, authorized, and reviewed every 30 days.
== END 2023-10-31 14:15 | disposition home or self-care (01) ==
LOC: PT 13:00
PROVIDERS: PCP Physician Assistant; Visit Provider Physician Assistant
DX: M54.12 Radiculopathy, cervical region (principal)
CPT/HCPCS: 97010; 97012; 97110; 97163

== ENCOUNTER → 2023-11-07 12:28 | Outpatient (POV) | payer MEDICARE, OTHER, SELFPAY ==
--- NOTE | 2023-11-07 13:07 | EXP.PAIN.SOA ---
[facility] Pain Management SOAP Note Subjective:: Patient is a pleasant 58-year-old female who presents today for follow-up of cervical epidural steroid injection C6-C7 on 10/22/2023. We are currently treating the patient for degenerative disc disease of cervical spine with cervical radiculopathy symptoms, cervical spinal stenosis, bilateral arm pain, cervical facet arthropathy, cervical spondylosis, myofascial pain. Today she rates her pain a 5 out of 10. Patient denies any new trauma or injury. She does state that she had approximately 90% improvement following this injection. She states she was able to increase her activity and do more things around the house such as mopping and sweeping with decreased symptoms. She states she was overall more functional. Patient does state after the fifth day she did slowly start to gradually feel the pain come back. Patient is back to her baseline today and describes it as a aching, throbbing sensation that is worse with increased activity or ambulation. She states she has difficulty even bending her head down to read due to the pain. She does have radiating symptoms into her upper extremities with the right being the worst side. She states the pain does interfere with her ability perform activities of daily living such as cooking and cleaning. Patient has tried and failed conservative therapy such as oral medications, heat and ice, topicals, physical therapy, at home stretching and exercise for longer than 6 weeks. Patient is interested in repeating this injection. She is currently managed with oxycodone 5 mg 3 times a day from her PCP. Her Robby has been reviewed and is appropriate. Review of Systems: General: No recent weight changes, no fever, no sleep disturbances Respiratory: No cough, no shortness of air, no recurring pulmonary infections Cardiovascular/peripheral vascular: No chest pain, no palpitations, no edema, no shortness of breath Gastrointestinal: No new onset incontinence, normal bowel movements reported Genitourinary: No new onset incontinence Musculoskeletal: Neck pain, bilateral arm pain Psychiatric: [Normal mood/affect] Neurological: [Denies weakness in extremities], [denies balance issues] Objective:: Physical Exam: General: Alert and oriented x3, no acute distress, pleasant and cooperative Lungs: Respirations even and unlabored, symmetrical chest expansion Eyes: PERRL Musculoskeletal: Flexion and extension of cervical [spine] somewhat guarded secondary to pain, [antalgic gait noted] Neurological: Speech clear, no gross sensory deficit Assessment:: Degenerative disc disease of cervical spine with cervical radiculopathy symptoms, cervical facet arthropathy, cervical spondylosis, cervical spinal stenosis, myofascial pain Plan:: Patient did have significant improvement following her first diagnostic cervical epidural with 90% relief however only lasting short-term. Patient is experiencing worsening pain in her neck and arms with limited range of motion of her cervical spine. I have discussed with the patient that she may benefit from repeat cervical epidural steroid injection. Risk and benefits were discussed with the patient and she would like to proceed forward with this plan of care. Patient will be scheduled for her second diagnostic cervical epidural steroid injection C6-C7. All epidurals are done under fluoroscopic guidance to confirm placement. Patient has been counseled to contact our office with any questions or concerns before their next appointment date. This note has been dictated using voice recognition software and may contain errors or omissions. Dr. Almanza has read this note and agrees with this plan of care. [facility] Disclaimer: The information contained in this section may have been updated after the patient was seen, as this information can be updated by other users. Medical History Abnormal cardiovascular stress test
[2023-11-07 13:12] VITALS: BP 124/83; PULSE 73; RESP 18; O2SAT 96; BMI 35.6
== END ==
PROVIDERS: PCP Internal Medicine; Visit Provider Nurse Practitioner Family
DX: M50.123 Cervical disc disorder at C6-C7 level with radiculopathy (principal); M47.22 Other spondylosis with radiculopathy, cervical region; M48.02 Spinal stenosis, cervical region; M79.10 Myalgia, unspecified site
CPT/HCPCS: 99212; G0463

== ENCOUNTER 2023-11-19 13:18 | Day surgery (SDC) | payer MEDICARE, OTHER, SELFPAY ==
[2023-11-19 13:41] VITALS: BP 157/91; PULSE 96; O2SAT 97; BMI 35.6
[2023-11-19 14:35] VITALS: BP 167/87; PULSE 98; RESP 18; O2SAT 97
[2023-11-19 14:36] VITALS: BP 167/87; PULSE 91; RESP 18; O2SAT 97
--- NOTE | 2023-11-19 14:38 | P.PCN_ITS ---
Procedure Date: 11/19/23 Time: 14:30 Anesthesiologist:: Israel Mclean CRNA Complications:: None Pre-procedure Diagnosis:: Degenerative disc cervical spine multilevels. Cervical radiculopathy. Cervical stenosis. Post-procedure Diagnosis:: Same. Indications for Procedure:: Patient is a very pleasant 58-year-old female comes our clinic today for cervical epidural steroid injection C6-7. Patient has had significant proved in terms of her overall posterior cervical neck pain as well as bilateral arm radicular symptoms with previous injection same level. Procedure Details:: Procedure:Cervical epidural steroid injection Informed consent was obtained and the risks and benefits of the procedure were explained to the patient. The patient was taken to the procedure room and noninvasive monitors placed, including noninvasive blood pressure cuff and pulse oximeter. The neck was prepped using Chloraprep as a cleansing solution. The C6- C7 interspace was viewed using fluroscopy. The skin and subcutaneous tissues were anesthetized using lidocaine 1.5% and a 25-gauge needle. After this an 18- gauge Touhy epidural needle was placed into the C6-C7 interspace under fluroscopy guidance and advanced using loss of resistance to air until the e pidural space was encountered. After confirmation of needle placement in the epidural space using contrast dye, a solution containing normal saline, 2 mL and Depo-Medrol 80 mg was incrementally injected into the cervical epidural space.~ The patient tolerated the procedure well with no complications. The patient was observed in the Pain Clinic and then discharged home neurologically intact. Plan and Disposition:: Patient was discharged without incident.
[2023-11-19 14:39] VITALS: BP 144/92; PULSE 83; O2SAT 98
== END 2023-11-19 14:37 | disposition home or self-care (01) ==
PROVIDERS: PCP Internal Medicine; Visit Provider Nurse Anesthetist, Certified Registered
DX: M50.123 Cervical disc disorder at C6-C7 level with radiculopathy (principal); M48.02 Spinal stenosis, cervical region
CPT/HCPCS: 62321; J1040; Q9966

== ENCOUNTER → 2023-12-11 12:51 | Outpatient (POV) | payer MEDICARE, OTHER, SELFPAY ==
[2023-12-11 13:20] VITALS: BP 135/93; PULSE 103; RESP 18; O2SAT 94; BMI 35.6
--- NOTE | 2023-12-11 13:44 | A.OFFVIS_ITS ---
[facility] Pain Management SOAP Note Subjective:: Is a pleasant 58-year-old female who presents today for follow-up of cervical epidural steroid injection C6-C7 on 11/19/2023. Patient is currently being seen: Degenerative disc disease of cervical spine with cervical radiculopathy symptoms, cervical spinal stenosis, bilateral arm pain, cervical facet arthropathy, cervical spondylosis, myofascial pain. Today she rates her pain a 4 out of 10. Patient denies any new trauma or injury. She does state that she had approximately 90 to 100% improvement following this injection however it only lasted approximately a little over a week. Patient states during that time she was able to increase her activity with decreased pain symptoms and felt overall more functional however she is back to her baseline today. Patient states she continues to have chronic pain in her neck and upper extremities with increase in headaches. Patient does state that the pain interferes with her ability to perform activities of daily living such as cooking cleaning. Patient has tried and failed conservative therapy such as oral medication, heat and ice, topicals, physical therapy, at home stretching exercise for longer than 6 weeks. Patient has been tried on oxycodone 5 mg 3 times a day from her primary care provider in the past. Has been reviewed and is appropriate. Review of Systems: General: No recent weight changes, no fever, no sleep disturbances Respiratory: No cough, no shortness of air, no recurring pulmonary infections Cardiovascular/peripheral vascular: No chest pain, no palpitations, no edema, no shortness of breath Gastrointestinal: No new onset incontinence, normal bowel movements reported Genitourinary: No new onset incontinence Musculoskeletal: Neck pain, upper extremity pain, headache Psychiatric: [Normal mood/affect] Neurological: [Denies weakness in extremities], [denies balance issues] Objective:: Physical Exam: General: Alert and oriented x3, no acute distress, pleasant and cooperative Lungs: Respirations even and unlabored, symmetrical chest expansion Eyes: PERRL Musculoskeletal: Flexion and extension of cervical [spine] somewhat guarded secondary to pain, [antalgic gait noted] Neurological: Speech clear, no gross sensory deficit Assessment:: Degenerative disc disease of cervical spine with cervical radiculopathy symptoms, cervical spinal stenosis, bilateral arm pain, cervical facet arthropathy, cervical spondylosis, myofascial pain, chronic pain syndrome Plan:: Patient continues to experience significant pain in her neck with radiating symptoms to her upper extremities and increased headaches. Patient had limited range of motion of her cervical spine during today's visit. I have discussed with the patient that she may be a beneficial candidate of a spinal cord stimulator trial. Risk and benefits and educational handouts were given to the patient during today's visit. She would like to proceed forward with this option. I will order a psychological evaluation and if she is deemed an appropriate candidate for the device we will proceed forward with a trial at a later date. I will order the patient a compounded cream. Patient will return t o clinic in 1 month following her psych eval for reevaluation of symptoms and plan of care. Patient has been instructed to contact the clinic with any concerns before the next appointment. Dr. Almanza has reviewed this note and agrees with this plan of care. This note was dictated using voice recognition software and make contain errors or omissions. [facility] Disclaimer: The information contained in this section may have been updated after the patient was seen, as this information can be updated by other users. 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 She states she is going to do this just picked up the Chantix prescription and states she wants to stop smoking. Viral upper respiratory infection Vitamin D deficiency Surgical History History of ankle surgery History of appendectomy History of colonoscopy Social History (Updated 11/19/23 @ 13:42 by Noemi Lee RN) Smoking Status: Current every day smoker tobacco type: cigarettes packs per day: 2 second hand exposure: Yes alcohol intake: never substance use type: denies use current occupational status: disabled Travel in the last 8 weeks: None household members: family housing: house number of children: 2 current occupational exposures/hazards: No caffeine: Yes
== END ==
LOC: SC.PAIN 12:52
PROVIDERS: PCP Physician Assistant; Visit Provider Nurse Practitioner Family
DX: M50.123 Cervical disc disorder at C6-C7 level with radiculopathy (principal); M48.02 Spinal stenosis, cervical region; M47.22 Other spondylosis with radiculopathy, cervical region; M79.601 Pain in right arm; M79.602 Pain in left arm; M79.10 Myalgia, unspecified site; G89.4 Chronic pain syndrome; R51.9 Headache, unspecified
CPT/HCPCS: 99212; G0463

== ENCOUNTER 2023-12-30 11:42 | Outpatient (CLI) | payer MEDICARE, OTHER, SELFPAY ==
[2023-12-30 12:30] LABS: Amphetamine/Metha Screen,Urine Negative ng/ml (<1000)
[2023-12-30 12:31] LABS: Barbiturates Screen,Urine Negative ng/ml (<200); Benzodiazepines Screen,Urine Negative ng/ml (<200)
[2023-12-30 12:32] LABS: Cannabinoid Screen,Urine Negative ng/ml (<50)
[2023-12-30 12:33] LABS: Cocaine Screen,Urine Negative ng/ml (<300); Methadone Screen,Urine Negative ng/ml (<300)
[2023-12-30 12:34] LABS: Opiate Screen,Urine Negative ng/ml (<300)
[2023-12-30 12:35] LABS: Phencyclidine Screen,Urine Negative ng/ml (<25)
== END 2023-12-30 23:59 ==
LOC: LAB.DROPOF 11:43
PROVIDERS: PCP Family Medicine; Visit Provider Family Medicine
DX: Z79.899 Other long term (current) drug therapy (principal)
CPT/HCPCS: 80307

== ENCOUNTER 2024-01-27 12:04 | Outpatient (CLI) | payer MEDICARE, OTHER, SELFPAY ==
[2024-01-27 13:05] LABS: Alanine Aminotransferase 20 U/L (12-78); Albumin Level 4.5 g/dl (3.5-5.0); Albumin/Globulin Ratio 1.7 (1.1-1.8); Alkaline Phosphatase 102 U/L (38-126); Anion Gap 10.4 mEq/L (5-15); Aspartate Amino Transferase 23 U/L (14-36); Blood Urea Nitrogen 16 mg/dl (7-17); Calcium 9.8 mg/dl (8.4-10.2); Carbon Dioxide 31 mmol/L (22.0-30.0); Chloride 101 mmol/L (98-107); Estimated Glomerular Filt Rate 57 ml/min (>60); GFR (African American) 69 ML/MIN (>60); Globulin 2.7 g/dL (1.3-3.2); Glucose 112 mg/dl (74-100); Potassium 4.4 mmoL/L (3.5-5.1); Sodium 138 mmol/L (136-145); Total Protein,Serum 7.2 g/dl (6.3-8.2)
== END 2024-01-27 23:59 ==
LOC: LAB.DROPOF 12:05
PROVIDERS: PCP Internal Medicine; Visit Provider Internal Medicine
DX: R53.83 Other fatigue
CPT/HCPCS: 80053

== ENCOUNTER 2024-02-07 11:23 | Outpatient (CLI) | payer MEDICARE, OTHER, SELFPAY ==
--- NOTE | 2024-02-07 11:23 | CT_ITS ---
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 A noncontrast coronary calcium scan was performed. A CT attenuation threshold of 130 Hounsfield units (HU) was used for the detection of calcium in contiguous voxels of 1 sq mm in area to be counted as individual lesions. Bolus tracking in the ascending aorta with a threshold of 180 HU was performed. Immediately afterwards, ECG synchronized cardiac CT was then performed from the cardiac base to apex using retrospective gating with ECG tube current modulation. A total of 85 mL of Isovue 370 mg/mL contrast medium was administered at 5 mL/sec followed by a saline flush using a biphasic injection protocol. A tube voltage of 120 KVp was used. The patient received the following medications prior to the cardiac CT. 75 mg of oral metoprolol 15 mg of oral ivabradine Nitroglycerin was not administered due to marginal BPs at baseline. The average heart rate at the time of acquisition was 57 bpm and regular. Image Reconstruction Transaxial images were reconstructed at 0.67 mm slide thickness. Data was reviewed interactively on an advanced workstation capable of 2 and 3-dimensional displays in all conventional reconstruction formats, including multiplanar reformations, maximum intensity projections, curved multiplanar reformations, and volume rendered reconstructions. When applicable, selected routine images describing the relevant coronary anatomy and pathology were saved and sent to PACS. Complications None Technical Quality Overall image quality was suboptimal. Coronary artery opacification was suboptimal due to no administration of sublingual nitroglycerin (marginal BPs). Total DLP (Dose-Length Product) is 1673.7 mGy-cm. The reported value represents the total of one or more individual components during the CT acquisition of this date and at this time, and as such, the same value may appear in more than one CT report depending on the interpreting/reporting physicians. COMPARISON None FINDINGS CT Coronary Calcium Scoring LMA (Left Main Artery) = 0 LAD (Left Anterior Descending) = 2 LCX (Left Coronary Circumflex) = 0 RCA (Right Coronary Artery) = 0 Total Calcium Score = 2 using the AJ-130 method. The observed calcium score of 2 is at 72nd percentile for subjects of the same age, sex, and race/ethnicity. The interpretation of the calcium heart score is based on the following continuum*: 0 = no calcified plaque detected (risk of coronary artery disease is very low ??? less than 5%) 1-10 = calcium detected in extremely minimal levels (risk of coronary diseases is still low ??? less than 10%) 11-100 = mild levels of plaque detected with certainty (mild or minimal narrowing of heart arteries is likely) 101-400 = definite,at least moderate levels of plaque detected (relatively high risk of a heart attack within 3-5 years) >401-999 = extensive levels of plaque detected (high risk of heart attack, high levels of vascular disease are present, high likelihood of at least one significant coronary narrowing) *The calcium heart score quantifies the burden of coronary calcification/plaque in the coronary arteries. The calcium heart score is not able to evaluate the presence or burden of non-calcified (i.e. soft) plaque. There is no identifiable calcification in the aortic valve, mitral annulus or mitral valve, pericardium, or myocardium. Coronary CT Angiography The coronary arterial system is right dominant. Quantitative Stenosis Grading: Left Main (LM): The left main originates normally from the left sinus of Valsalva. The LM bifurcates into the left anterior descending artery and left circumflex artery. The LM is patent with no evidence of atherosclerosis. Left Anterior Descending (LAD) and Diagonal Branches: The LAD gives off 2 diagonal branches. The LAD and its branches are patent with no evidence of atherosclerosis. There is no evidence of LAD-myocardial bridge. Left Circumflex (LCX) and Obtuse Marginals (OM): The LCX gives off 2 Obtuse Marginal (OM) branches. The LCX and its branches are patent with no evidence of atherosclerosis. Right Coronary Artery (RCA): The RCA originates normally from the right sinus of Valsalva. The RCA gives off a posterior descending artery (PDA) and posterolateral (PL) branches. The RCA and its branches are patent with no evidence of atherosclerosis. Non-Coronary Cardiac Findings: Analysis of the left ventricular (LV) structure and function was performed after 3-D reconstruction of the LV from axial images, with user-corrected automatic contouring for assessment of LV volumes and user-defined reconstruction from oblique planes for measurement of 3-D cardiac structure and function. -The left ventricle systolic function is normal. -There is no left atrial appendage filling defect. Two right pulmonary veins and two left pulmonary veins drain normally into the left atrium. -No pericardial thickening or calcification. -Central and branch pulmonary arteries in the [id number] are unremarkable. -Thoracic aorta within the visualized thoracic aortic-branches in the [id number] is unremarkable. Extracardiac Structures No significant extra-cardiac findings. Note, however, that this study is focused on the cardiac findings. IMPRESSION -Suboptimal study due to no administration of sublingual nitroglycerin (marginal BPs). -Minimal coronary calcification with an Agatston score = 2 using the AJ-130 method. -The observed calcium score of 2 is at 72nd percentile for subjects of the same age, sex, and race/ethnicity. -No evidence of significant flow-limiting atherosclerosis of the coronary arteries. -CAD-RADS 1. Management recommendations per ACC/AHA guidelines*, as clinically appropriate. *Recommendations: CAD RADS 0: Reassurance. Consider non-atherosclerotic causes of chest pain. CAD RADS 1: Consider non-atherosclerotic causes of chest pain. Consider preventive therapy and risk factor modification. CAD RADS 2: Consider non-atherosclerotic causes of chest pain. Consider preventive therapy and risk factor modification, particularly for patients with nonobstructive plaque in multiple segments. CAD RADS 3: Consider further functional testing. Consider symptom-guided anti-ischemic and preventive pharmacotherapy as well as risk factor modification per published guideline statements. CAD RADS 4A: Consider further functional testing or invasive coronary angiography with revascularization per published guideline statements. Consider symptom-guided anti-ischemic and preventive pharmacotherapy as well as risk factor modification per published guideline statements. CAD RADS 4B: Invasive coronary angiography recommended with revascularization per published guideline statements. Consider symptom-guided anti-ischemic and preventive pharmacotherapy as well as risk factor modification per published guideline statements. CAD RADS 5: Consider invasive angiography and/or viability assessment with revascularization per published guideline statements. Consider symptom-guided anti-ischemic and preventive pharmacotherapy as well as risk factor modification per published guideline statements. CRITICAL RESULT None COMMUNICATION Per this written report The coronary and cardiac findings of this CCTA were reviewed, reported, and signed by Andres Mujica MD ([employer] Marble Setter) Conclusion Electronically signed by : Erica Mujica MD 02/11/2024 00:21:03
[2024-02-07 12:28] VITALS: BMI 35.6
[2024-02-07] MEDS: METOPROLOL TARTRATE 25MG TABLET 25 MG (12:39)
[2024-02-07] MEDS: IVABRADINE HCL 7.5MG TABLET PO (12:39)
[2024-02-07] MEDS: METOPROLOL TARTRATE 50MG TABLET PO (12:39)
[2024-02-07 13:27] VITALS: BP 94/68; PULSE 65; RESP 16; O2SAT 97
[2024-02-07 13:30] VITALS: BP 139/81; PULSE 58; RESP 16; O2SAT 96
[2024-02-07 13:35] VITALS: BP 122/87; PULSE 63; RESP 18; O2SAT 95
[2024-02-07 13:43] VITALS: BP 124/71; PULSE 56; RESP 16; O2SAT 98
[2024-02-07] MEDS: IOPAMIDOL-370 (76%);100ML BOTTLE 85 ML IV (13:43)
[2024-02-07] MEDS: 0.9 % SODIUM CHLORIDE 50 ML VIAL IV (13:43)
[2024-02-07 13:53] VITALS: BP 133/86; PULSE 51; RESP 16; O2SAT 99
== END 2024-02-07 13:58 | disposition home or self-care (01) ==
PROVIDERS: PCP Internal Medicine; Visit Provider Internal Medicine
DX: R06.00 Dyspnea, unspecified (principal); R07.9 Chest pain, unspecified
CPT/HCPCS: 75571; 75574; Q9967

== ENCOUNTER 2024-02-12 08:43 | Outpatient (POV) | payer MEDICARE, OTHER, SELFPAY ==
--- NOTE | 2024-02-12 09:25 | EXP.PAIN.SOA ---
[facility] Pain Management SOAP Note Subjective:: Patient is a pleasant 58-year-old female who presents today for follow-up of psychological evaluation. Today she rates her pain a 3 out of 10. Patient states her pain is better with the warmer weather and today seems like it is starting out okay. She denies any new trauma or injury. She does state that she reviewed over the spinal cord stimulator information and still would like to proceed forward with this option. Patient has tried and failed conservative therapy such as oral medication, heat and ice, topicals, physical therapy, at home stretching exercise for longer than 6 weeks. She is prescribed oxycodone from an outside provider. Her Robby has been reviewed and is appropriate. Review of Systems: General: No recent weight changes, no fever, no sleep disturbances Respiratory: No cough, no shortness of air, no recurring pulmonary infections Cardiovascular/peripheral vascular: No chest pain, no palpitations, no edema, no shortness of breath Gastrointestinal: No new onset incontinence, normal bowel movements reported Genitourinary: No new onset incontinence Musculoskeletal: Neck pain, headache, arm pain Psychiatric: [Normal mood/affect] Neurological: [Denies weakness in extremities], [denies balance issues] Objective:: Physical Exam: General: Alert and oriented x3, no acute distress, pleasant and cooperative Lungs: Respirations even and unlabored, symmetrical chest expansion Eyes: PERRL Musculoskeletal: Flexion and extension of cervical [spine] somewhat guarded secondary to pain, [antalgic gait noted] Neurological: Speech clear, no gross sensory deficit Assessment:: Degenerative disc disease of cervical spine with cervical radiculopathy symptoms, cervical spinal stenosis, bilateral arm pain, cervical facet arthropathy, cervical spondylosis, myofascial pain Plan:: Patient was deemed an appropriate candidate for the spinal cord stimulator trial. Risk and benefits were again discussed with the patient and she would like to proceed forward with this plan of care. Patient is not on any blood thinners and has tried and failed conservative treatment. We will schedule the patient for a spinal cord stimulator trial under fluoroscopy. Patient has been instructed to contact the clinic with any concerns before the next appointment. Dr. Almanza has reviewed this note and agrees with this plan of care. This note was dictated using voice recognition software and make contain errors or omissions. [facility] Disclaimer: The information contained in this section may have been updated after the patient was seen, as this information can be updated by other users. Medical History Acute interstitial pneumonia FH: early menopause Laceration of thumb Insomnia I am hoping the amitriptyline with help with sleep. Recurrent major depression resistant to treatment Thyroid enlarged Hx of malignant melanoma Myocardial bridge Atypical angina Abnormal cardiovascular stress test Encounter for pre-operative cardiovascular clearance Exposure to COVID-19 virus Claudication Edema Depression Acute bronchitis Chronic headaches Viral upper respiratory infection Headache Vitamin D deficiency Fibromyalgia Lightheaded Fatigue Tobacco abuse Discussed with Ekta her need to quit smoking. Something happened to this Chantix prescription and I am not sure whether this is the pharmacies issue or ours. We will try to sort this out and get this prescription for Ekta as she still willing to use it. COPD (chronic obstructive pulmonary disease) HTN (hypertension) Chest pain Surgical History History of appendectomy History of ankle surgery History of colonoscopy Social History Smoking Status: Current every day smoker tobacco type: cigarettes packs per day: 2 second hand exposure: Yes alcohol intake: never substance use type: denies use current occupational status: disabled Travel in the last 8 weeks: None household members: family housing: house number of children: 2 current occupational exposures/hazards: No caffeine: Yes
[2024-02-12 11:04] VITALS: BP 146/92; PULSE 90; RESP 18; O2SAT 95; BMI 35.6
== END 2024-02-12 23:59 ==
LOC: SC.PAIN 08:44
PROVIDERS: PCP Internal Medicine; Visit Provider Nurse Practitioner Family
DX: M50.10 Cervical disc disorder with radiculopathy, unspecified cervical region (principal); M48.02 Spinal stenosis, cervical region; M47.22 Other spondylosis with radiculopathy, cervical region; M79.601 Pain in right arm; M79.602 Pain in left arm; M79.10 Myalgia, unspecified site
CPT/HCPCS: 99212; G0463

== ENCOUNTER 2024-03-11 08:56 | Outpatient (CLI) | payer MEDICARE, OTHER, SELFPAY ==
[2024-03-11 09:25] LABS: Basophils # 0.1 K/mm3 (0-0.2); Basophils % 1.5 % (0.1-2.0); Eosinophils # 0.2 K/mm3 (0.0-0.4); Hemoglobin 13.8 g/dL (12.2-16.2); Mean Corpuscular HGB Conc 32.8 g/dL (31.8-35.4); Mean Corpuscular Hemoglobin 29.5 pg (27.0-31.2); Mean Corpuscular Volume 89.8 fl (81-99); Mean Platelet Volume 8.9 fl (7.4-10.4); Monocytes # 0.3 K/mm3 (0.1-1.0); Monocytes % 4.4 % (1.7-9.3); Neutrophils # 3.4 K/mm3 (1.8-7.8); Neutrophils % 57.1 % (37.0-80.0); Platelet Count 173 K/mm3 (142-424); Red Blood Count 4.68 M/mm3 (4.20-5.40); Red Cell Distribution Width 13.2 % (11.5-17.5); White Blood Count 5.9 K/mm3 (4.8-10.8)
[2024-03-11 10:13] LABS: Chloride 106 mmol/L (98-107); Potassium 4.1 mmoL/L (3.5-5.1); Sodium 139 mmol/L (136-145)
[2024-03-11 10:16] LABS: Anion Gap 8.1 mEq/L (5-15); Blood Urea Nitrogen 13 mg/dl (7-17); Carbon Dioxide 29 mmol/L (22.0-30.0); Estimated Glomerular Filt Rate 74 ml/min (>60); GFR (African American) 89 ML/MIN (>60)
[2024-03-11 10:17] LABS: Calcium 9.2 mg/dl (8.4-10.2); Glucose 175 mg/dl (74-100)
== END 2024-03-11 23:59 | disposition home or self-care (01) ==
LOC: LAB 08:57
PROVIDERS: PCP Internal Medicine; Visit Provider Anesthesiology
DX: Z01.818 Encounter for other preprocedural examination (principal); M51.36 Other intervertebral disc degeneration, lumbar region
CPT/HCPCS: 36415; 80048; 85025

== ENCOUNTER 2024-03-13 08:32 | Day surgery (SDC) | payer MEDICARE, OTHER, SELFPAY ==
[2024-03-13] VITALS (7 sets, daily range): BP systolic 129–159; BP diastolic 70–93; PULSE 74–88; RESP 16–18; TEMP 36.1; O2SAT 96–99; BMI 35.6
[2024-03-13] MEDS: LACTATED RINGERS 1000ML 1,000 ML 25 ML IV (10:52)
[2024-03-13] MEDS: VANCOMYCIN/WATER FOR INJ (PEG) 1.5 GM/300 ML PIGGYBACK IV ×2 (10:52→12:27)
[2024-03-13 10:54] LABS: POC Glucose,Bedside 134 (70-110)
--- NOTE | 2024-03-13 11:32 | EXP.ANES.CKL ---
[facility] Disclaimer: The information contained in this section may have been updated after the patient was seen, as this information can be updated by other users. Medical History Acute interstitial pneumonia FH: early menopause Laceration of thumb Insomnia Recurrent major depression resistant to treatment Thyroid enlarged Hx of malignant melanoma Myocardial bridge Atypical angina Abnormal cardiovascular stress test Encounter for pre-operative cardiovascular clearance Exposure to COVID-19 virus Claudication Edema Depression Acute bronchitis Chronic headaches Viral upper respiratory infection Headache Vitamin D deficiency Fibromyalgia Lightheaded Fatigue Tobacco abuse COPD (chronic obstructive pulmonary disease) HTN (hypertension) Chest pain Surgical History History of appendectomy History of ankle surgery History of colonoscopy Family History Other Family history of cancer Family history of hypertension Social History Smoking Status: Current every day smoker tobacco type: cigarettes packs per day: 2 second hand exposure: Yes alcohol intake: never substance use type: denies use current occupational status: disabled Travel in the last 8 weeks: None household members: family housing: house number of children: 2 current occupational exposures/hazards: No caffeine: Yes [facility] Anesthesia Checklist Patient Identification Patient Identification: Arm Band and Verbal (Name & ) Structural Data Admitted From: Home Planned Operative Procedure/s: Stimulator trial Consent for Planned Operative Procedure(s) Verified: Yes NPO Status Verified Time NPO: 00:00 Additional verifications Anesthesia Reactions: No Hx Blood Transfusions: No Blood Transfusion Reaction: No Airway Assessment Mallampati Score:: Class IV C-Spine Mobility Assessed: Yes TMJ Mobility Assessed: Yes Dentition: Good Dentition Neurological Assessment Level of Consciousness: Awake Hx Seizures: No Numbness or tingling in extremities: No Anesthesia Plan Anesthesia Risk discussed: Yes Anesthesia Plan: Verified ASA Class: III Anesthesia Type: MAC
[2024-03-13] MEDS: LIDOCAINE 1% W/EPI 1:100,000 20ML VIAL 40 ML (12:24)
--- NOTE | 2024-03-13 13:22 | SUR.PHASEII ---
verbal order from Dr. Almanza for Bactrim DS 1 tablet BID x5 days called into [facility] in [place]. Post op staff notified of prescription (rhonda keyes)
--- NOTE | 2024-03-13 13:48 | EXP.PAIN.PRO ---
Procedure Date: 03/13/24 Time: 13:48 Anesthesiologist:: Maxwell Almanza MD Complications:: None
--- NOTE | 2024-03-13 13:48 | EXP.OP.NOTE ---
Date of procedure: 03/13/24 Pre-op Diagnosis:: Degenerative disc disease of the cervical spine with cervical radiculopathy symptoms Post-op Diagnosis:: Same Procedure performed:: Spinal cord stimulator trial with epidural lead placement x 2 Surgeon:: Maxwell Almanza MD SPECIAL EDUCATION RESOURCE TEACHER:: Adair Thompson Anesthesia: MAC Estimated blood loss (mL): 1 Clinical Note:: The patient is a pleasant 58-year-old white female who we are treating for neck pain with degenerative disc disease of the cervical spine with cervical radiculopathy symptoms. Most of her pain is in her neck radiating to her shoulders and down her arms. She has failed all previous conservative treatments including injections, oral medications, physical therapy and she is not a surgical candidate. She has had a successful psychological evaluation. She presents for spinal cord stimulator trial today. Operative findings:: None Operative note:: Informed consent was obtained risk and benefits of the procedure were explained to the patient. Patient was taken the operating room placed prone on the procedure table. She was prepped and draped in a sterile fashion. C-arm fluoroscopy was used to view the lumbar spine. The skin and subcutaneous tissues were anesthetized using lidocaine. A 17-gauge epidural needle was inserted and advanced into the L1-L2 interspace. After confirmation of needle placement in the epidural space a stimulating lead was inserted and advanced very easily to the C2 C3-C4-C5 vertebral bodies. This was done with the aid of a percutaneous lead introducer kit. A second needle was inserted and advanced again into the L1-L2 interspace. Again after confirmation of needle placement in the epidural space a second stimulating lead was inserted and advanced very easily to the C2 C3-C4-C5 vertebral body. Again this was done with the aid of a percutaneous lead introducer kit. We did test on the table with good stimulation in all areas of pain. The stylette's and needles were removed. The leads were secured in place. The patient was taken recovery in stable condition. Patient was programmed by the [employer] insurance account representative with good stimulation in all areas of pain. Patient was discharged home neurologic intact with good relief of pain symptoms. Plan and disposition: We will follow-up with this patient in 1 week for lead pull. Will continually reprogram throughout the week to optimize a stimulator trial. Condition: stable Disposition: PACU Complications:: none
== END 2024-03-13 14:10 | disposition home or self-care (01) ==
PROVIDERS: PCP Internal Medicine; Visit Provider Anesthesiology
DX: M54.12 Radiculopathy, cervical region (principal); G89.29 Other chronic pain
CPT/HCPCS: 63650; 82962; 96374; C1778; J2704

== ENCOUNTER 2024-03-19 12:50 | Outpatient (POV) | payer MEDICARE, OTHER, SELFPAY ==
[2024-03-19 12:56] VITALS: BP 132/92; PULSE 87; RESP 16; O2SAT 97; BMI 35.6
--- NOTE | 2024-03-19 13:20 | EXP.PAIN.SOA ---
[facility] Pain Management SOAP Note Subjective:: Patient is a pleasant 58-year-old female who presents today for 1 week follow-up of spinal cord stimulator trial on 03/13/2024. Today she rates her pain a 8 out of 10. Patient states that the pain today is all in her low back and legs. Patient states that she has had 100% improvement of her cervical spine symptoms following her trial. She states she has been able to increase her activity in her upper arms and feels much more functional. Patient states that she has not felt this good in her neck for years. Patient states that she would like to have this for both her neck and her leg symptoms. Patient does state that she would like to proceed forward with the stimulator implant. Patient has tried and failed conservative therapy including oral medications, topicals, heat and ice, physical therapy, at home stretching exercise for longer than 12 weeks as well as injection therapy. Patient only got temporary relief with her injections. Patient is prescribed oxycodone from an outside provider. Her Robby has been reviewed and is appropriate. Review of Systems: General: No recent weight changes, no fever, no sleep disturbances Respiratory: No cough, no shortness of air, no recurring pulmonary infections Cardiovascular/peripheral vascular: No chest pain, no palpitations, no edema, no shortness of breath Gastrointestinal: No new onset incontinence, normal bowel movements reported Genitourinary: No new onset incontinence Musculoskeletal: Low back pain, bilateral leg pain, chronic neck pain with upper extremity pain Psychiatric: [Normal mood/affect] Neurological: [Denies weakness in extremities], [denies balance issues] Objective:: Physical Exam: General: Alert and oriented x3, no acute distress, pleasant and cooperative Lungs: Respirations even and unlabored, symmetrical chest expansion Eyes: PERRL Musculoskeletal: Flexion and extension of cervical, lumbar[spine] somewhat guarded secondary to pain, [antalgic gait noted] Neurological: Speech clear, no gross sensory deficit Assessment:: Degenerative disc disease of cervical and lumbar spine with cervical and lumbar radiculopathy symptoms, cervical spinal stenosis, bilateral arm pain, cervical facet arthropathy, cervical spondylosis, myofascial pain, pain syndrome Plan:: Patient had 100% relief following her spinal cord stimulator targeting her cervical spine and radicular symptoms. Patient states she was able to do more activities with decreased pain overall and felt much more functional on a day-to-day basis. I have discussed the risk and benefits of the spinal cord stimulator implant and the patient would like to proceed forward with this plan of care. Patient is not on any blood thinners. Patient has tried and failed conservative therapy. We will plan on entering at the L1-L2 interspace and putting her leads into the C2-C3-C4 and C5 vertebral bodies. Patient will be submitted for spinal cord stimulator implant and we will contact the patient with official date and time once we have approval. Patient's intrathecal leads were removed at today's visit. Patient tolerated this well with no complications. Patient has been instructed to contact the clinic with any concerns before the next appointment. Dr. Almanza has reviewed this note and agrees with this plan of care. This note was dictated using voice recognition software and make contain errors or omissions. [facility] Disclaimer: The information contained in this section may have been updated after the patient was seen, as this information can be updated by other users. Medical History Acute interstitial pneumonia FH: early menopause Laceration of thumb Insomnia Recurrent major depression resistant to treatment Thyroid enlarged Hx of malignant melanoma Myocardial bridge Atypical angina Abnormal cardiovascular stress test Encounter for pre-operative cardiovascular clearance Exposure to COVID-19 virus Claudication Edema Depression Acute bronchitis Chronic headaches Viral upper respiratory infection Headache Vitamin D deficiency Fibromyalgia Lightheaded Fatigue Tobacco abuse COPD (chronic obstructive pulmonary disease) HTN (hypertension) Chest pain Surgical History History of appendectomy History of ankle surgery History of colonoscopy Family History Other Family history of cancer Family history of hypertension Social History Smoking Status: Current every day smoker tobacco type: cigarettes packs per day: 2 second hand exposure: Yes alcohol intake: never substance use type: denies use current occupational status: other Travel in the last 8 weeks: None household members: family housing: house number of children: 2 current occupational exposures/hazards: No caffeine: Yes
== END 2024-03-19 23:59 ==
LOC: SC.PAIN 12:51
PROVIDERS: PCP Internal Medicine; Visit Provider Nurse Practitioner Family
DX: M50.10 Cervical disc disorder with radiculopathy, unspecified cervical region (principal); M51.16 Intervertebral disc disorders with radiculopathy, lumbar region; M48.02 Spinal stenosis, cervical region; M79.601 Pain in right arm; M79.602 Pain in left arm; M47.22 Other spondylosis with radiculopathy, cervical region; M79.10 Myalgia, unspecified site; G89.4 Chronic pain syndrome
CPT/HCPCS: 99212; G0463

== ENCOUNTER 2024-04-22 21:21 | Outpatient (CLI) | payer MEDICARE, OTHER, SELFPAY ==
[2024-04-22 21:51] LABS: Creatinine,Urine Random 261 mg/dL (Not Estab.)
[2024-04-22 21:55] LABS: Microalbumin/Creatinine Ratio 3.1
== END 2024-04-22 23:59 | disposition home or self-care (01) ==
LOC: LAB.DROPOF 21:23
PROVIDERS: PCP Internal Medicine; Visit Provider Internal Medicine
DX: R73.09 Other abnormal glucose (principal)
CPT/HCPCS: 82043; 82570

== ENCOUNTER 2024-04-23 18:24 | Outpatient (CLI) | payer MEDICARE, OTHER, SELFPAY ==
[2024-04-23 18:50] LABS: Hemoglobin A1C 6.4 % (4.0-6.0)
[2024-04-23 18:52] LABS: Cholesterol 156 mg/dl (140-200); Triglycerides 315 mg/dl (30-150); VLDL Cholesterol 63 mg/dL (0-40)
[2024-04-23 18:53] LABS: Chol/HDL Ratio 4.6 (1-3.5); HDL Cholesterol 34 mg/dl (40-60)
[2024-04-23 19:03] LABS: Direct LDL Cholesterol 67.51 mg/dL (100-129)
== END 2024-04-23 23:59 | disposition home or self-care (01) ==
LOC: LAB.DROPOF 18:25
PROVIDERS: PCP Internal Medicine; Visit Provider Internal Medicine
DX: E78.5 Hyperlipidemia, unspecified (principal); R73.09 Other abnormal glucose
CPT/HCPCS: 80061; 83036

== ENCOUNTER 2024-05-14 18:11 | Emergency (ER) | payer MEDICARE, OTHER, SELFPAY ==
[2024-05-14 18:35] VITALS: BP 117/90; PULSE 87; RESP 21; TEMP 36.8; O2SAT 96; BMI 35.9
--- NOTE | 2024-05-14 18:42 | ED_ITS ---
Discharge Plan Disposition Patient Disposition: Home, Self-Care Condition: Good Prescriptions Prescriptions: New simethicone 125 mg tablet,chewable 125 mg PO QID PRN (Reason: abdominal distention) Qty: 90 0RF dicyclomine 20 mg tablet 20 mg PO QID PRN (Reason: abdominal pain) Qty: 60 0RF No Action furosemide 40 mg tablet 40 mg PO DAILY atorvastatin 40 mg tablet 40 mg PO DAILY sucralfate 1 gram tablet 1 g PO DAILY lisinopril 20 mg tablet 20 mg PO DAILY alendronate 70 mg tablet 70 mg PO DAILY propranolol 60 mg capsule,extended release 24 hr 60 mg PO DAILY omeprazole 40 mg capsule,delayed release(DR/EC) 40 mg PO DAILY aspirin 81 mg tablet,delayed release (DR/EC) 81 mg PO DAILY albuterol sulfate 90 mcg/actuation HFA aerosol inhaler 1 puff INHALATION DAILY oxycodone 5 mg tablet 5 mg PO DAILY cyanocobalamin (vitamin B-12) [Vitamin B-12] 5,000 mcg tablet, sublingual 5,000 mcg PO DAILY Referrals Follow up/Referrals: Hoang Matias DO [Primary Care Provider] - See instructions Activity Restrictions/Add. Instructions Additional Instructions/Restrictions: If symptoms persist or worsen, return to the ER. Increase fluids. Walk as this will help to relieve gas. Take medication as prescribed. Clinical Impressions Clinical Impression: Gaseous distention of intestine determined by X-ray Instructions Patient Instructions: Acute Abdominal Pain Discharge ED Provider: Lizette Decker [facility] HPI General Stated complaint: Nausea,stomach pain Time Seen by Provider: 05/14/24 18:32 History of Present Illness Provider Complaint: Pt reports that she got sick on Saturday evening and had chills through the night and then diarrhea. She states that she has had nausea and cramping since that time. She states that she has taken Zofran and Michelle- [place] for her symptoms. She reports that she has only hand very small hard bms since Saturday and passed a lot of air. Related Data Home Medications Medication Instructions Recorded Confirmed albuterol sulfate 90 mcg/actuation 1 puff inhalation DAILY 05/14/24 05/14/24 aerosol inhaler alendronate 70 mg tablet 70 mg PO DAILY 05/14/24 05/14/24 aspirin 81 mg tablet,delayed 81 mg PO DAILY 05/14/24 05/14/24 release atorvastatin 40 mg tablet 40 mg PO DAILY 05/14/24 05/14/24 cyanocobalamin (vitamin B-12) 5,000 mcg PO DAILY 05/14/24 05/14/24 5,000 mcg sublingual tablet (Vitamin B-12) furosemide 40 mg tablet 40 mg PO DAILY 05/14/24 05/14/24 lisinopril 20 mg tablet 20 mg PO DAILY 05/14/24 05/14/24 omeprazole 40 mg capsule,delayed 40 mg PO DAILY 05/14/24 05/14/24 release oxycodone 5 mg tablet 5 mg PO DAILY 05/14/24 05/14/24 propranolol 60 mg capsule,24 60 mg PO DAILY 05/14/24 05/14/24 hr,extended release sucralfate 1 gram tablet 1 g PO DAILY 05/14/24 05/14/24 Previous Rx's Medication Instructions Recorded dicyclomine 20 mg tablet 20 mg PO QID PRN abdominal pain 05/14/24 #60 tabs simethicone 125 mg chewable tablet 125 mg PO QID PRN abdominal 05/14/24 distention #90 tabs Allergies Allergy/AdvReac Type Severity Reaction Status Date / Time ciprofloxacin [From CIPRO] Allergy Unknown HIVES/RASH Verified 04/21/24 10:58 [facility] Disclaimer: The information contained in this section may have been updated after the patient was seen, as this information can be updated by other users. Medical History Acute interstitial pneumonia FH: early menopause Laceration of thumb Insomnia Amitriptyline is not been successful we will stop this medication. I think her big problem is her obstructive sleep apnea see below. Recurrent major depression resistant to treatment Thyroid enlarged Hx of malignant melanoma Myocardial bridge Atypical angina Abnormal cardiovascular stress test Encounter for pre-operative cardiovascular clearance Exposure to COVID-19 virus Claudication Edema Depression Acute bronchitis Chronic headaches Viral upper respiratory infection Headache Vitamin D deficiency Patient is on supplementation we will check a vitamin D today. Fibromyalgia Lightheaded Fatigue Tobacco abuse Discussed with Ekta her need to quit smoking. Something happened to this Chantix prescription and I am not sure whether this is the pharmacies issue or ours. We will try to sort this out and get this prescription for Ekta as she still willing to use it. COPD (chronic obstructive pulmonary disease) Patient has not seen pulmonary and I think it would be a good idea to do that. She is still smoking. Will have pulmonary do an evaluation, PFTs and recommended treatment. HTN (hypertension) Chest pain Surgical History History of appendectomy History of ankle surgery History of colonoscopy Family History Other Family history of cancer Family history of hypertension Social History Smoking Status: Current every day smoker tobacco type: cigarettes packs per day: 2 second hand exposure: Yes alcohol intake: never substance use type: denies use current occupational status: other Travel in the last 8 weeks: None household members: family housing: house number of children: 2 current occupational exposures/hazards: No caffeine: Yes ROS Obtained: Yes All systems reviewed & no additional complaints except as documented Constitutional Constitutional: Reports system reviewed and no additional complaints, except as documented Eyes Eyes: Reports system reviewed and no additional complaints, except as documented ENT Ears, Nose, Mouth, and Throat: Reports system reviewed and no additional complaints, except as documented Cardiovascular Cardiovascular: Reports system reviewed and no additional complaints, except as documented Respiratory Respiratory: Reports system reviewed and no additional complaints, except as documented Gastrointestinal Gastrointestingal: Reports system reviewed and no additional complaints, except as documented, as per HPI, abdominal pain, change in bowel habits, cramping, diarrhea and nausea Genitourinary Female Genitourinary: Reports system reviewed and no additional complaints, except as documented Musculoskeletal Musculoskeletal: Reports system reviewed and no additional complaints, except as documented Integumentary/Breasts Skin/Breast: Reports system reviewed and no additional complaints, except as documented Neurologic Neurologic: Reports system reviewed and no additional complaints, except as documented Endocrine Endocrine: Reports system reviewed and no additional complaints, except as documented Hematologic/Lymphatic Henatologic/Lymphatic: Reports system reviewed and no additional complaints, except as documented Allergic/Immunologic Allergic/Immunologic: Reports system reviewed and no additional complaints, except as documented Physical Exam General General appearance: alert Comment: appears in pain. Head Head exam: atraumatic and normocephalic Eye Eye exam: Present normal appearance ENT ENT exam: Present normal exam and normal oropharynx Neck Neck exam: Present normal inspection Chest Chest inspection: Present normal inspection and symmetric chest wall rise Respiratory Respiratory exam: Present normal lung sounds bilaterally Cardiovascular Cardiovascular exam: Present regular rate, normal rhythm and normal heart sounds Abdominal Exam Abdominal exam: Present distention, tenderness, guarding, rebound, hypoactive bowel sounds, Rovsing's sign and tenderness at McBurney's Point Abdominal tenderness: Present RLQ, epigastrium, suprapubic, diffuse and moderate Extremities Exam Extremities exam: Present normal inspection Back Exam Back exam: Present normal inspection Neurological Exam Neurological exam: Present alert and oriented X3 Psychiatric Psychiatric exam: Present normal affect and normal mood Skin Skin exam: Present warm, dry and intact Lymphatic Lymphatic Findings: no adenopathy Medical Decision Making Robby Inquiry Pt receiving controlled substance: No Robby was queried for this patient: No Radiology Data #1: Image(s): Abdomen Image Reviewed: Yes I reviewed the patient's radiology results and Yes I have reviewed radiologist's interpretation FINDINGS: Tubes, catheters and devices: Pelvic surgical clips. Gastrointestinal tract: Nonobstructive bowel gas pattern. Intraperitoneal space: Normal. No free air. Bones/joints: Unremarkable for age. IMPRESSION: Nonobstructive bowel gas pattern.
--- NOTE | 2024-05-14 18:55 | XR_ITS ---
PROCEDURE INFORMATION: Exam: XR Abdomen Exam date and time: 05/14/2024 6:59 PM Age: 58 years old Clinical indication: Nausea; Abdominal pain; Additional info: Abdominal pain/nausea TECHNIQUE: Imaging protocol: Radiologic exam of the abdomen. Views: 2 Views. Upright and supine views. COMPARISON: ABDPELWO CT abdomen pelvis wo con 17/07/2018 14:36 FINDINGS: Tubes, catheters and devices: Pelvic surgical clips. Gastrointestinal tract: Nonobstructive bowel gas pattern. Intraperitoneal space: Normal. No free air. Bones/joints: Unremarkable for age. IMPRESSION: Nonobstructive bowel gas pattern.
[2024-05-14 19:06] LABS: Apearance,Urine Cloudy (Clear); Bilirubin,Urine Negative (Negative); Blood, Urine Negative (Negative); Color,Urine Yellow (Yellow); Glucose,Urine (UA) Negative (Negative); Ketones,Urine Negative (Negative); PH,Urine 5.5 (5.0-8.5); Protein,Urine Negative (Negative); Specific Gravity, Urine >= 1.030 (1.005-1.030); UTC Leukocyte Esterase,Urine Negative (Negative); UTC Nitrate,Urine Negative (Negative); Urobilinogen,Urine 0.2 EU/dl (0.2)
[2024-05-14 19:50] VITALS: BP 117/90; PULSE 87; RESP 21; TEMP 36.8; O2SAT 96
== END 2024-05-14 19:54 | disposition home or self-care (01) ==
PROVIDERS: Emergency Provider Nurse Practitioner Family; PCP Internal Medicine
DX: R10.817 Generalized abdominal tenderness (principal); R14.0 Abdominal distension (gaseous); R19.7 Diarrhea, unspecified; R11.0 Nausea; F17.210 Nicotine dependence, cigarettes, uncomplicated
CPT/HCPCS: 74019; 81003; 99204; 99212; G0463

== ENCOUNTER 2024-07-02 07:37 | Outpatient (CLI) | payer MEDICARE, OTHER, SELFPAY ==
[2024-07-02 07:55] LABS: Basophils # 0.1 K/mm3 (0-0.2); Basophils % 1.8 % (0.1-2.0); Eosinophils # 0.3 K/mm3 (0.0-0.4); Eosinophils % 3.7 % (0.1-12.0); Hematocrit 41.9 % (37.0-47.0); Lymphocytes # 2.5 K/mm3 (0.7-4.5); Mean Corpuscular HGB Conc 33.4 g/dL (31.8-35.4); Mean Corpuscular Hemoglobin 29.4 pg (27.0-31.2); Mean Corpuscular Volume 88.1 fl (81-99); Mean Platelet Volume 8.4 fl (7.4-10.4); Monocytes # 0.5 K/mm3 (0.1-1.0); Monocytes % 6.3 % (1.7-9.3); Neutrophils # 3.8 K/mm3 (1.8-7.8); Neutrophils % 53.3 % (37.0-80.0); Platelet Count 214 K/mm3 (142-424); Red Blood Count 4.75 M/mm3 (4.20-5.40); White Blood Count 7.2 K/mm3 (4.8-10.8)
[2024-07-02 08:41] LABS: Anion Gap 10.6 mEq/L (5-15); Blood Urea Nitrogen 17 mg/dl (7-17); Calcium 9.4 mg/dl (8.4-10.2); Carbon Dioxide 28 mmol/L (22.0-30.0); Chloride 106 mmol/L (98-107); Estimated Glomerular Filt Rate 74 ml/min (>60); GFR (African American) 89 ML/MIN (>60); Glucose 112 mg/dl (74-100); Potassium 3.6 mmoL/L (3.5-5.1); Sodium 141 mmol/L (136-145)
[2024-07-02 09:46] LABS: Hemoglobin A1C 6.1 % (4.0-6.0)
== END 2024-07-02 23:59 | disposition home or self-care (01) ==
LOC: LAB 07:39
PROVIDERS: PCP Internal Medicine; Visit Provider Anesthesiology
DX: Z01.818 Encounter for other preprocedural examination (principal); E11.69 Type 2 diabetes mellitus with other specified complication
CPT/HCPCS: 36415; 80048; 83036; 85025

== ENCOUNTER 2024-07-03 06:38 | Day surgery (SDC) | payer MEDICARE, OTHER, SELFPAY ==
[2024-07-02 10:10] VITALS: BMI 35.6
[2024-07-03] VITALS (9 sets, daily range): BP systolic 135–157; BP diastolic 72–96; PULSE 73–97; RESP 16–18; TEMP 36.4–36.6; O2SAT 92–99
--- OUTSIDE RECORDS SUMMARY | 2024-07-03 06:42 | XMS_ITS ---
Author Name Hugo Leiva Address [address] [place] [id number] Organization Unknown Address [address] [place] [id number] ALLERGIES AND ADVERSE REACTIONS No information ASSESSMENT No information CHIEF COMPLAINT No information MEDICATIONS No information OBJECTIVE DATA No information PHYSICAL EXAMINATION No information TREATMENT PLAN Planned Care Start Date Provider Encounter for Check-up [phone] [facility] PROBLEMS No information RESULTS No information REVIEW OF SYSTEMS No information SUBJECTIVE DATA No information VITAL SIGNS No information
[2024-07-03 07:12] LABS: POC Glucose,Bedside 132 (70-110)
[2024-07-03] MEDS: LACTATED RINGERS 1000ML 1,000 ML 25 ML IV (07:17)
[2024-07-03] MEDS: VANCOMYCIN/WATER FOR INJ (PEG) 1.5 GM/300 ML PIGGYBACK IV ×2 (07:46→08:45)
--- NOTE | 2024-07-03 08:20 | P.PNANES_ITS ---
[facility] Disclaimer: The information contained in this section may have been updated after the patient was seen, as this information can be updated by other users. Medical History Encounter for screening for malignant neoplasm of lung Smoking greater than 30 pack years Acute interstitial pneumonia FH: early menopause Laceration of thumb Insomnia Amitriptyline is not been successful we will stop this medication. I think her big problem is her obstructive sleep apnea see below. Recurrent major depression resistant to treatment Thyroid enlarged Hx of malignant melanoma Myocardial bridge Atypical angina Abnormal cardiovascular stress test Encounter for pre-operative cardiovascular clearance Exposure to COVID-19 virus Claudication Edema Depression Acute bronchitis Chronic headaches Viral upper respiratory infection Headache Vitamin D deficiency Patient is on supplementation we will check a vitamin D today. Fibromyalgia Lightheaded Fatigue Tobacco abuse Discussed with Ekta her need to quit smoking. Something happened to this Chantix prescription and I am not sure whether this is the pharmacies issue or ours. We will try to sort this out and get this prescription for Ekta as she still willing to use it. COPD (chronic obstructive pulmonary disease) HTN (hypertension) Chest pain Surgical History History of appendectomy History of ankle surgery History of colonoscopy Family History Other Family history of cancer Family history of hypertension Social History (Updated 07/03/24 @ 07:05 by Peyton Hamilton RN) Smoking Status: Current every day smoker tobacco type: cigarettes packs per day: 2 second hand exposure: Yes alcohol intake: never substance use type: denies use current occupational status: disabled Travel in the last 8 weeks: None household members: family housing: house number of children: 2 current occupational exposures/hazards: No caffeine: Yes [facility] Anesthesia Checklist Patient Identification Patient Identification: Arm Band Structural Data Admitted From: Home Planned Operative Procedure/s: Neurostimulator Lead and Generator Placement Consent for Planned Operative Procedure(s) Verified: Yes Verified Documents: Surgical Consent and History and Physical NPO Status Verified Time NPO: 00:00 Additional verifications Anesthesia Reactions: No Hx Blood Transfusions: No Blood Transfusion Reaction: No Airway Assessment Mallampati Score:: Class II C-Spine Mobility Assessed: Yes TMJ Mobility Assessed: Yes Dentition: Good Dentition Neurological Assessment Level of Consciousness: Awake, Alert and Appropriate Anesthesia Plan Anesthesia Risk discussed: Yes Anesthesia Plan: Verified ASA Class: III Anesthesia Type: MAC
[2024-07-03] MEDS: SODIUM CHLORIDE 0.9% 20ML VIAL 20 ML IV (09:05)
[2024-07-03] MEDS: LIDOCAINE 1% W/EPI 1:100,000 20ML VIAL 20 ML ×2 (09:05)
[2024-07-03] MEDS: GENTAMICIN 80 MG/2 ML VIAL (09:05)
[2024-07-03] MEDS: ACETAMINOPHEN 325MG TAB 650 MG (10:28)
--- NOTE | 2024-07-03 12:31 | P.OP_ITS ---
Date of procedure: 07/03/24 Pre-op Diagnosis:: Degenerative disease of cervical spine with cervical radiculopathy symptoms Post-op Diagnosis:: Same Procedure performed:: Spinal cord stimulator placement with epidural lead placement x 2 and stimulator generator placement Surgeon:: Maxwell Almanza MD EXHAUSTER ENGINEER:: Alaina Jang and Ebenezer Randolph Anesthesia: MAC Estimated blood loss (mL): 5 Clinical Note:: This patient is a pleasant 59-year-old white female who we are treating for neck pain with cervical radicular symptoms. She has failed all previous conservative treatments including injections, oral medications, physical therapy and she is not a surgical candidate. She did well with her spinal cord stimulator trial. She also has a successful psychological evaluation. She presents for permanent placement of her spinal cord stimulator today. Operative findings:: None Operative note:: Informed consent was obtained risk and benefits of the procedure were explained to the patient. The patient was taken the operating room placed prone on the procedure table. She was prepped and draped sterile fashion. C-arm fluoroscopy was used to view the lumbar spine. The skin and subcutaneous tissues adjacent to the L1-L2 and L2-L3 interspace were anesthetized using lidocaine. I made incision dissected down to the lumbar paraspinous fascia. A 17-gauge epidural needle was inserted and advanced into the L1-L2 interspace. Upon placing the needle we did what tapped the patient and get CSF back. We did reposition the needle. After confirming placement in the epidural space a stimulating lead was inserted and advanced with the assistance of a percutaneous lead introducer to the C2-C3-C4 vertebral bodies. A second needle was inserted and advanced again into the T12-L1 interspace. After confirmation of needle placement in the epidural space a second silly lead was advanced with the assistance of a percutaneous lead introducer kit to the C2-C3-C4 vertebral bodies. Leads were midline left and right of the spinous process and posterior. The stylette's and needles were removed. The leads were secured to the fascia with anchor device and 2-0 Prolene. I tunneled leads to the generator pocket that was created on the left flank. The leads were attached to the generator. Impedances were checked and found to be okay. Both incisions were irrigated with antibiotic solution. Both incisions were then closed with 2-0 Vicryl followed by 4-0 nylon and lucy. The patient was placed in an abdominal binder and taken recovery stable condition. Patient tolerated the procedure well no complications. Patient did have a headache postoperatively we did advise her on conservative treatment for postdural puncture headache. Since the leads are entering the space at the level of the dural puncture opted not to do a blood patch. We will treat it conservatively. We did tell the patient to use caffeine fluids Excedrin Migraine and rest. Patient was programmed by the [place] installation service representative with good stimulation in all areas pain. Patient was discharged home neurologic intact with good relief of pain symptoms except for headache. Plan and disposition: We will follow-up with this patient in 1 week for wound check and reprogram. Will follow-up in 2 to 3 weeks for suture and staple removal Condition: stable Disposition: PACU Complications:: Dural puncture at L1-L2. Other than this no other complication.
== END 2024-07-03 11:50 | disposition home or self-care (01) ==
PROVIDERS: PCP Internal Medicine; Visit Provider Anesthesiology
PROC: (CPT 63650; principal; 2024-07-03 08:30)
DX: M54.12 Radiculopathy, cervical region (principal); Z45.42 Encounter for adjustment and management of neurostimulator; M54.2 Cervicalgia; M79.601 Pain in right arm; M79.602 Pain in left arm; Z79.899 Other long term (current) drug therapy
CPT/HCPCS: 63650; 63685; 82962; 96374; C1778; C1820; J1100; J1580; J2250; J2405; J2704; J3010; J7120

== ENCOUNTER 2024-07-09 08:50 | Outpatient (POV) | payer MEDICARE, OTHER, SELFPAY ==
[2024-07-09 09:22] VITALS: BP 146/101; PULSE 87; RESP 18; O2SAT 95; BMI 35.6
--- NOTE | 2024-07-09 09:39 | EXP.PAIN.SOA ---
[facility] Disclaimer: The information contained in this section may have been updated after the patient was seen, as this information can be updated by other users. Medical History Encounter for screening for malignant neoplasm of lung Smoking greater than 30 pack years Acute interstitial pneumonia FH: early menopause Laceration of thumb Insomnia Amitriptyline is not been successful we will stop this medication. I think her big problem is her obstructive sleep apnea see below. Recurrent major depression resistant to treatment Thyroid enlarged Hx of malignant melanoma Myocardial bridge Atypical angina Abnormal cardiovascular stress test Encounter for pre-operative cardiovascular clearance Exposure to COVID-19 virus Claudication Edema Depression Acute bronchitis Chronic headaches Viral upper respiratory infection Headache Vitamin D deficiency Patient is on supplementation we will check a vitamin D today. Fibromyalgia Lightheaded Fatigue Tobacco abuse Discussed with Ekta her need to quit smoking. Something happened to this Chantix prescription and I am not sure whether this is the pharmacies issue or ours. We will try to sort this out and get this prescription for Ekta as she still willing to use it. COPD (chronic obstructive pulmonary disease) HTN (hypertension) Chest pain Surgical History History of appendectomy History of ankle surgery History of colonoscopy Family History Other Family history of cancer Family history of hypertension Social History (Updated 07/03/24 @ 07:05 by Peyton aHmilton RN) Smoking Status: Current every day smoker tobacco type: cigarettes packs per day: 2 second hand exposure: Yes alcohol intake: never substance use type: denies use current occupational status: disabled Travel in the last 8 weeks: None household members: family housing: house number of children: 2 current occupational exposures/hazards: No caffeine: Yes PM Subjective & Objective Subjective Subjective:: -year-old female who presents today for 1 week postop of her spinal cord stimulator implant. Today she rates her pain a 2 out of 10. Patient denies any issues following this procedure. She does state that she does not feel like the programming is exactly how it lies with the trial and feels like it could use adjustment. Patient states that she has not talked to [employer] sales training representative. Patient does state overall she just feels like she has more stiffness in and around her neck and that she thinks it is a lot to do with just not moving around as much following this procedure. She states that overall her incision seems to be doing well. Her Robby has been reviewed and is appropriate. Review of Systems: General: No recent weight changes, no fever, no sleep disturbances Respiratory: No cough, no shortness of air, no recurring pulmonary infections Cardiovascular/peripheral vascular: No chest pain, no palpitations, no edema, no shortness of breath Gastrointestinal: No new onset incontinence, normal bowel movements reported Genitourinary: No new onset incontinence Musculoskeletal: Neck pain Psychiatric: [Normal mood/affect] Neurological: [Denies weakness in extremities], [denies balance issues] Pain at rest (0-10 scale): 2 Objective Objective:: Physical Exam: General: Alert and oriented x3, no acute distress, pleasant and cooperative Lungs: Respirations even and unlabored, symmetrical chest expansion Eyes: PERRL Musculoskeletal: Flexion and extension of cervical [spine] somewhat guarded secondary to pain, [antalgic gait noted] Neurological: Speech clear, no gross sensory deficit Skin: Incision sites are clean, dry, well-approximated with lucy and sutures intact no erythema noted Has patient had previous pain injection?: No Conservative treatment options previously tried: Home exercise plan Length of treatment: Longer than 6 weeks Meds Home Medications and Allergies Home Medications ?Medication ?Instructions ?Recorded ?Confirmed ?Type albuterol sulfate 90 mcg/actuation 1 puff inhalation DAILY 05/14/24 07/03/24 History aerosol inhaler aspirin 81 mg tablet,delayed 81 mg PO DAILY 05/14/24 06/30/24 History release atorvastatin 40 mg tablet 40 mg PO DAILY 05/14/24 06/30/24 History cyanocobalamin (vitamin B-12) 5,000 mcg PO DAILY 05/14/24 06/30/24 History 5,000 mcg sublingual tablet (Vitamin B-12) dicyclomine 20 mg tablet 20 mg PO QID PRN abdominal pain 05/14/24 06/30/24 Rx #60 tabs furosemide 40 mg tablet 40 mg PO DAILY 05/14/24 06/30/24 History lisinopril 20 mg tablet 20 mg PO DAILY 05/14/24 06/30/24 History omeprazole 40 mg capsule,delayed 40 mg PO DAILY 05/14/24 06/30/24 History release propranolol 60 mg capsule,24 60 mg PO DAILY 05/14/24 06/30/24 History hr,extended release simethicone 125 mg chewable tablet 125 mg PO QID PRN abdominal 05/14/24 06/30/24 Rx distention #90 tabs sucralfate 1 gram tablet 1 g PO DAILY 05/14/24 06/30/24 History alendronate 70 mg tablet 70 mg PO WEEKLY #12 tabs 05/28/24 06/30/24 Rx tiotropium 2.5 mcg-olodaterol 2.5 2 puff inhalation DAILY 90 days #4 06/11/24 07/03/24 Rx mcg/actuation mist for inhalation grams (Stiolto Respimat) oxycodone 5 mg tablet 5 mg PO BID PRN pain 30 days #60 06/29/24 07/03/24 Rx tabs sulfamethoxazole 800 1 tab PO BID #14 tabs 07/03/24 Rx mg-trimethoprim 160 mg tablet (Bactrim DS) New Prescriptions to Start Prescriptions: Allergies Allergy/AdvReac Type Severity Reaction Status Date / Time ciprofloxacin [From CIPRO] Allergy Unknown HIVES/RASH Verified 07/03/24 06:59 Assessment and Plan *Assessment and plan (1) Cervical radiculopathy: Status: Acute Category: Medical Code(s): M54.12 - Radiculopathy, cervical region (2) Degenerative disc disease, cervical: Status: Acute Category: Medical Code(s): M50.30 - Other cervical disc degeneration, unspecified cervical region Plan I did review over with the patient to continue her full postop restrictions for the 6 weeks including no submerging in water, manage bending lifting and twisting and to continue to use her abdominal binder. I did discuss with patient that I do think that she would benefit from a reprogramming of her [employer] stimulator. Patient agrees with this plan of care. I did reach out to sales training representative and they are going to be present at her follow-up appointment next week. Patient has been instructed to contact the clinic with any concerns before the next appointment. Dr. Almanza has reviewed this note and agrees with this plan of care. This note was dictated using voice recognition software and make contain errors or omissions. All injections are used with Lidocaine or Bupivacaine and Depo Medrol.
== END 2024-07-09 23:59 | disposition home or self-care (01) ==
LOC: SC.PAIN 08:51
PROVIDERS: PCP Internal Medicine; Visit Provider Nurse Practitioner Family
DX: M50.10 Cervical disc disorder with radiculopathy, unspecified cervical region (principal); F17.210 Nicotine dependence, cigarettes, uncomplicated; Z96.82 Presence of neurostimulator; Z79.899 Other long term (current) drug therapy
CPT/HCPCS: 99212; G0463

== ENCOUNTER 2024-07-15 10:35 | Outpatient (POV) | payer MEDICARE, OTHER, SELFPAY ==
[2024-07-15 11:53] VITALS: BP 161/67; PULSE 78; RESP 18; O2SAT 95; BMI 35.6
--- NOTE | 2024-07-15 12:00 | A.OFFVIS_ITS ---
[facility] Disclaimer: The information contained in this section may have been updated after the patient was seen, as this information can be updated by other users. Medical History Encounter for screening for malignant neoplasm of lung Smoking greater than 30 pack years Acute interstitial pneumonia FH: early menopause Laceration of thumb Insomnia Amitriptyline is not been successful we will stop this medication. I think her big problem is her obstructive sleep apnea see below. Recurrent major depression resistant to treatment Thyroid enlarged Hx of malignant melanoma Myocardial bridge Atypical angina Abnormal cardiovascular stress test Encounter for pre-operative cardiovascular clearance Exposure to COVID-19 virus Claudication Edema Depression Acute bronchitis Chronic headaches Viral upper respiratory infection Headache Vitamin D deficiency Patient is on supplementation we will check a vitamin D today. Fibromyalgia Lightheaded Fatigue Tobacco abuse Discussed with Ekta her need to quit smoking. Something happened to this Chantix prescription and I am not sure whether this is the pharmacies issue or ours. We will try to sort this out and get this prescription for Ekta as she still willing to use it. COPD (chronic obstructive pulmonary disease) HTN (hypertension) Chest pain Surgical History History of appendectomy History of ankle surgery History of colonoscopy Family History Other Family history of cancer Family history of hypertension Social History (Updated 07/03/24 @ 07:05 by Peyton Hamilton RN) Smoking Status: Current every day smoker tobacco type: cigarettes packs per day: 2 second hand exposure: Yes alcohol intake: never substance use type: denies use current occupational status: disabled Travel in the last 8 weeks: None household members: family housing: house number of children: 2 current occupational exposures/hazards: No caffeine: Yes PM Subjective & Objective Subjective Subjective:: Patient is a pleasant 59-year-old female who presents today for suture and staple removal as well as spinal cord stimulator reprogramming. Today she rates her pain an 8 out of 10. Patient denies any new trauma or injury. She does state that she still is experiencing significant pain in her neck and radiating down into her upper extremity. Patient does feel like that the stimulator is not working as well as it was in the trial. She does state overall she has done well following this procedure however feels like the sutures and lucy have be en very irritating to her and would like to see about having them removed today. Her Robby has been reviewed and is appropriate. Review of Systems: General: No recent weight changes, no fever, no sleep disturbances Respiratory: No cough, no shortness of air, no recurring pulmonary infections Cardiovascular/peripheral vascular: No chest pain, no palpitations, no edema, no shortness of breath Gastrointestinal: No new onset incontinence, normal bowel movements reported Genitourinary: No new onset incontinence Musculoskeletal: Neck pain Psychiatric: [Normal mood/affect] Neurological: [Denies weakness in extremities], [denies balance issues] Pain at rest (0-10 scale): 8 Objective Objective:: Physical Exam: General: Alert and oriented x3, no acute distress, pleasant and cooperative Lungs: Respirations even and unlabored, symmetrical chest expansion Eyes: PERRL Musculoskeletal: Flexion and extension of cervical [spine] somewhat guarded secondary to pain, [antalgic gait noted] Neurological: Speech clear, no gross sensory deficit Has patient had previous pain injection?: No Conservative treatment options previously tried: Home exercise plan Length of treatment: Longer than 6 weeks Meds Home Medications and Allergies Home Medications ?Medication ?Instructions ?Recorded ?Confirmed ?Type albuterol sulfate 90 mcg/actuation 1 puff inhalation DAILY 05/14/24 07/15/24 History aerosol inhaler aspirin 81 mg tablet,delayed 81 mg PO DAILY 05/14/24 07/15/24 History release atorvastatin 40 mg tablet 40 mg PO DAILY 05/14/24 07/15/24 History cyanocobalamin (vitamin B-12) 5,000 mcg PO DAILY 05/14/24 07/15/24 History 5,000 mcg sublingual tablet (Vitamin B-12) dicyclomine 20 mg tablet 20 mg PO QID PRN abdominal pain 05/14/24 07/15/24 Rx #60 tabs furosemide 40 mg tablet 40 mg PO DAILY 05/14/24 07/15/24 History lisinopril 20 mg tablet 20 mg PO DAILY 05/14/24 07/15/24 History omeprazole 40 mg capsule,delayed 40 mg PO DAILY 05/14/24 07/15/24 History release propranolol 60 mg capsule,24 60 mg PO DAILY 05/14/24 07/15/24 History hr,extended release simethicone 125 mg chewable tablet 125 mg PO QID PRN abdominal 05/14/24 07/15/24 Rx distention #90 tabs sucralfate 1 gram tablet 1 g PO DAILY 05/14/24 07/15/24 History alendronate 70 mg tablet 70 mg PO WEEKLY #12 tabs 05/28/24 07/15/24 Rx tiotropium 2.5 mcg-olodaterol 2.5 2 puff inhalation DAILY 90 days #4 06/11/24 07/15/24 Rx mcg/actuation mist for inhalation grams (Stiolto Respimat) oxycodone 5 mg tablet 5 mg PO BID PRN pain 30 days #60 06/29/24 07/15/24 Rx tabs New Prescriptions to Start Prescriptions: Allergies Allergy/AdvReac Type Severity Reaction Status Date / Time ciprofloxacin [From CIPRO] Allergy Unknown HIVES/RASH Verified 07/03/24 06:59 Assessment and Plan *Assessment and plan (1) Cervical spondylosis: Status: Acute Category: Medical Code(s): M47.812 - Spondylosis without myelopathy or radiculopathy, cervical region (2) Facet arthropathy, cervical: Problem Comment: See above. Status: Acute Category: Medical Code(s): M47.812 - Spondylosis without myelopathy or radiculopathy, cervical region (3) Degenerative disc disease, cervical: Status: Acute Category: Medical Code(s): M50.30 - Other cervical disc degeneration, unspecified cervical region Plan Patient was able to meet with [employer] sales representative for reprogramming. Patient did accidentally have her stimulator off the last 2 weeks. We were able to go over henley features of the device and get her reprogrammed with hopefully better coverage. Patient was able to have all of her sutures and lucy removed except for 3. Patient was counseled to continue her postop restrictions the full 6 weeks. Patient will return to clinic in 1 week for reevaluation of symptoms and plan of care. Patient has been instructed to contact the clinic with any concerns before the next appointment. Dr. Almanza has reviewed this note and agrees with this plan of care. This note was dictated using voice recognition software and make contain errors or omissions. All injections are used with Lidocaine or Bupivacaine and Depo Medrol.
== END 2024-07-15 23:59 | disposition home or self-care (01) ==
LOC: SC.PAIN 10:35
PROVIDERS: PCP Internal Medicine; Visit Provider Nurse Practitioner Family
DX: M47.812 Spondylosis without myelopathy or radiculopathy, cervical region (principal); M50.30 Other cervical disc degeneration, unspecified cervical region; F17.210 Nicotine dependence, cigarettes, uncomplicated; Z96.82 Presence of neurostimulator; Z79.899 Other long term (current) drug therapy
CPT/HCPCS: 99212; G0463

== ENCOUNTER 2024-07-23 12:21 | Outpatient (POV) | payer MEDICARE, OTHER, SELFPAY ==
[2024-07-23 14:31] VITALS: BP 152/91; PULSE 84; RESP 18; O2SAT 98; BMI 35.6
--- NOTE | 2024-07-23 14:31 | EXP.PAIN.SOA ---
[facility] Disclaimer: The information contained in this section may have been updated after the patient was seen, as this information can be updated by other users. Medical History Encounter for screening for malignant neoplasm of lung Smoking greater than 30 pack years Acute interstitial pneumonia FH: early menopause Laceration of thumb Insomnia Amitriptyline is not been successful we will stop this medication. I think her big problem is her obstructive sleep apnea see below. Recurrent major depression resistant to treatment Thyroid enlarged Hx of malignant melanoma Myocardial bridge Atypical angina Abnormal cardiovascular stress test Encounter for pre-operative cardiovascular clearance Exposure to COVID-19 virus Claudication Edema Depression Acute bronchitis Chronic headaches Viral upper respiratory infection Headache Vitamin D deficiency Patient is on supplementation we will check a vitamin D today. Fibromyalgia Lightheaded Fatigue Tobacco abuse Discussed with Ekta her need to quit smoking. Something happened to this Chantix prescription and I am not sure whether this is the pharmacies issue or ours. We will try to sort this out and get this prescription for Ekta as she still willing to use it. COPD (chronic obstructive pulmonary disease) HTN (hypertension) Chest pain Surgical History History of appendectomy History of ankle surgery History of colonoscopy Family History Other Family history of cancer Family history of hypertension Social History (Updated 07/03/24 @ 07:05 by Peyton Hamilton RN) Smoking Status: Current every day smoker tobacco type: cigarettes packs per day: 2 second hand exposure: Yes alcohol intake: never substance use type: denies use current occupational status: disabled Travel in the last 8 weeks: None household members: family housing: house number of children: 2 current occupational exposures/hazards: No caffeine: Yes PM Subjective & Objective Subjective Subjective:: Patient is a pleasant 59-year-old female who presents today for follow-up and suture and staple removal. She does rate her pain today a 6 out of 10. She denies any new trauma or injury. She does state that she still continues to have a lot of neck stiffness and that she has been getting good coverage with her [employer] spinal cord stimulator along the left side however past that point she is not noticing the improvement like what she had with the trial. Patient is still wanting to see about additional reprogramming. Her Robby has been reviewed and is appropriate. Review of Systems: General: No recent weight changes, no fever, no sleep disturbances Respiratory: No cough, no shortness of air, no recurring pulmonary infections Cardiovascular/peripheral vascular: No chest pain, no palpitations, no edema, no shortness of breath Gastrointestinal: No new onset incontinence, normal bowel movements reported Genitourinary: No new onset incontinence Musculoskeletal: Neck pain Psychiatric: [Normal mood/affect] Neurological: [Denies weakness in extremities], [denies balance issues] Pain at rest (0-10 scale): 6 Objective Objective:: Physical Exam: General: Alert and oriented x3, no acute distress, pleasant and cooperative Lungs: Respirations even and unlabored, symmetrical chest expansion Eyes: PERRL Musculoskeletal: Flexion and extension of cervical [spine] somewhat guarded secondary to pain, [antalgic gait noted] Neurological: Speech clear, no gross sensory deficit Has patient had previous pain injection?: No Conservative treatment options previously tried: Home exercise plan Length of treatment: Longer than 6 weeks Meds Home Medications and Allergies Home Medications ?Medication ?Instructions ?Recorded ?Confirmed ?Type albuterol sulfate 90 mcg/actuation 1 puff inhalation DAILY 05/14/24 07/15/24 History aerosol inhaler aspirin 81 mg tablet,delayed 81 mg PO DAILY 05/14/24 07/15/24 History release atorvastatin 40 mg tablet 40 mg PO DAILY 05/14/24 07/15/24 History cyanocobalamin (vitamin B-12) 5,000 mcg PO DAILY 05/14/24 07/15/24 History 5,000 mcg sublingual tablet (Vitamin B-12) dicyclomine 20 mg tablet 20 mg PO QID PRN abdominal pain 05/14/24 07/15/24 Rx #60 tabs furosemide 40 mg tablet 40 mg PO DAILY 05/14/24 07/15/24 History lisinopril 20 mg tablet 20 mg PO DAILY 05/14/24 07/15/24 History omeprazole 40 mg capsule,delayed 40 mg PO DAILY 05/14/24 07/15/24 History release propranolol 60 mg capsule,24 60 mg PO DAILY 05/14/24 07/15/24 History hr,extended release simethicone 125 mg chewable tablet 125 mg PO QID PRN abdominal 05/14/24 07/15/24 Rx distention #90 tabs sucralfate 1 gram tablet 1 g PO DAILY 05/14/24 07/15/24 History alendronate 70 mg tablet 70 mg PO WEEKLY #12 tabs 05/28/24 07/15/24 Rx tiotropium 2.5 mcg-olodaterol 2.5 2 puff inhalation DAILY 90 days #4 06/11/24 07/15/24 Rx mcg/actuation mist for inhalation grams (Stiolto Respimat) oxycodone 5 mg tablet 5 mg PO BID PRN pain 30 days #60 06/29/24 07/15/24 Rx tabs New Prescriptions to Start Prescriptions: Allergies Allergy/AdvReac Type Severity Reaction Status Date / Time ciprofloxacin [From CIPRO] Allergy Unknown HIVES/RASH Verified 07/03/24 06:59 Assessment and Plan *Assessment and plan (1) Facet arthropathy, cervical: Problem Comment: See above. Status: Acute Category: Medical Code(s): M47.812 - Spondylosis without myelopathy or radiculopathy, cervical region (2) Bilateral arm pain: Status: Acute Category: Medical Code(s): M79.601 - Pain in right arm; M79.602 - Pain in left arm (3) Bilateral shoulder pain: Status: Acute Qualifiers: Chronicity: chronic Qualified Code(s): M25.511 - Pain in right shoulder; M25.512 - Pain in left shoulder; G89.29 - Other chronic pain Category: Medical Code(s): M25.511 - Pain in right shoulder; M25.512 - Pain in left shoulder (4) Cervical spinal stenosis: Status: Acute Category: Medical Code(s): M48.02 - Spinal stenosis, cervical region Plan I did housing counselor the patient that we were able to take out all her sutures and lucy and to continue her postop restrictions for another week until its fully healed. Patient's incisions look great. I did housing counselor the patient that [employer] will be here tomorrow for surgery and that I will reach out to representatives to see about getting her reprogrammed tomorrow. Patient is agreeable with this. I will have the patient return to clinic in 2 weeks for reevaluation of symptoms and plan of care. Patient has been instructed to contact the clinic with any concerns before the next appointment. Dr. Almanza has reviewed this note and agrees with this plan of care. This note was dictated using voice recognition software and make contain errors or omissions. All injections are used with Lidocaine or Bupivacaine and Depo Medrol.
== END 2024-07-23 23:59 | disposition home or self-care (01) ==
LOC: SC.PAIN 12:22
PROVIDERS: PCP Internal Medicine; Visit Provider Nurse Practitioner Family
DX: M47.812 Spondylosis without myelopathy or radiculopathy, cervical region (principal); M79.601 Pain in right arm; M79.602 Pain in left arm; M25.511 Pain in right shoulder; M25.512 Pain in left shoulder; G89.29 Other chronic pain; M48.02 Spinal stenosis, cervical region; Z96.82 Presence of neurostimulator; F17.210 Nicotine dependence, cigarettes, uncomplicated; Z79.899 Other long term (current) drug therapy
CPT/HCPCS: 99213; G0463

== ENCOUNTER 2024-09-11 08:08 | Outpatient (CLI) | payer MEDICARE, OTHER, SELFPAY ==
--- NOTE | 2024-09-11 08:10 | FL_ITS ---
FINAL REPORT CLINICAL HISTORY: .fluoro :22 DAP 280.68 FINDINGS: SNIFF TEST HISTORY: Shortness of breath. FINDINGS: A sniff test was performed. There is mild elevation of the right hemidiaphragm. There is some decreased excursion of the right hemidiaphragm but no paradoxical movement. IMPRESSION: Mild elevation right hemidiaphragm with decreased excursion on inspiration but no paradoxical movement to indicate diaphragmatic paralysis. Fluoroscopy time: 22 seconds Fluoro dose: 280 DAP in [employer] Reviewed, Interpreted and Dictated by Bari Portillo III, MD Transcribed by SAM Connors Authenticated and . [facility]
--- NOTE | 2024-09-11 08:10 | CT_ITS ---
FINAL REPORT TECHNIQUE: Thin section axial images were obtained from the lung apices to the upper abdomen by computed tomography. Reformatted images were obtained and reviewed. This study was performed with techniques to keep radiation doses al low as reasonably achievable (ALARA). Individualized dose reduction techniques using automated exposure control or adjustment of mA and/or kV according to the patient's size were employed. CLINICAL HISTORY: lung cancer screening CURRENT SMOKER 2PPD X40 YEARS COMPARISON: No prior exam FINDINGS: CHEST CT LOW DOSE CTDI vol (mGy): 2.90 DLP (mGy-cm): 100.81 There is no axillary adenopathy. There is no mediastinal or hilar mass or adenopathy. The heart is normal in size. There is no pericardial or pleural effusion. There is mild emphysema and mild pulmonary scarring. Lung window images demonstrate several calcified granulomas throughout the lungs. There is a posterior left upper lobe 5 mm nodule seen on series 3 image 23. Limited images of the upper abdomen are unremarkable. IMPRESSION: Lung-RADS category 2. Recommend 12 month follow up low dose chest CT. Reviewed, Interpreted and Dictated by Bari Portillo III, MD Transcribed by Billie Lizarraga Authenticated and [facility]
== END 2024-09-11 23:59 | disposition home or self-care (01) ==
LOC: RAD 08:10
PROVIDERS: PCP Internal Medicine; Visit Provider Internal Medicine Pulmonary Disease
DX: J98.6 Disorders of diaphragm (principal); F17.210 Nicotine dependence, cigarettes, uncomplicated
CPT/HCPCS: 71271; 76000

== ENCOUNTER 2024-09-15 09:07 | Outpatient (CLI) | payer MEDICARE, OTHER, SELFPAY ==
[2024-09-15 10:10] VITALS: PULSE 69; PULSE 73
[2024-09-15] MEDS: ALBUTEROL 0.083% 2.5 MG/3 ML NEB IH (10:10)
== END 2024-09-15 23:59 | disposition home or self-care (01) ==
LOC: RT 09:09
PROVIDERS: PCP Internal Medicine; Visit Provider Internal Medicine Pulmonary Disease
DX: R06.09 Other forms of dyspnea (principal)
CPT/HCPCS: 94060; 94618; 94640; 94726; 94729; J7613

== ENCOUNTER 2025-01-11 21:05 | Emergency (ER) | payer MEDICARE, OTHER, SELFPAY ==
[2025-01-11 21:28] VITALS: BP 149/99; PULSE 78; RESP 18; TEMP 36.8; O2SAT 98; BMI 35.2
[2025-01-11 21:41] LABS: Microscopic, Urine URINE MICROSCOPIC (MICROSCOPIC)
[2025-01-11 22:13] LABS: Appearance,Urine CLEAR (Clear); Bilirubin,Urine Negative (Negative); Blood, Urine Negative (Negative); Color,Urine YELLOW (Yellow); Glucose,Urine (UA) Negative (Negative); Ketones,Urine Negative (Negative); Leukocyte Esterase,Urine Negative (Negative); Nitrate,Urine Negative (Negative); PH,Urine 6.5 (5.0-8.5); Protein,Urine Negative (Negative); Urobilinogen,Urine 0.2 EU/dl (0.2)
[2025-01-11 22:52] LABS: Bacteria,Urine Trace /lpf; Squamous Epithelial Cell,Urine Occasional #/hpf (0-5); WBC,Urine Occasional #/hpf (0-3)
[2025-01-11 22:53] LABS: Mucus,Urine 3+ /lpf
--- NOTE | 2025-01-11 23:54 | ED_ITS ---
Discharge Plan Disposition Patient Disposition: Home, Self-Care Condition: Good Prescriptions Prescriptions: New lidocaine 5 % adhesive patch,medicated See Rx Instructions .ROUTE .COMPLEX Qty: 15 0RF Rx Instructions: Apply 1 patch to most painful area and leave on for up to 12 hours, remove and leave off for 12 hours before using a new patch No Action alendronate 70 mg tablet 70 mg PO WEEKLY Qty: 12 4RF azithromycin [Zithromax Z-Ortiz] 250 mg tablet See Rx Instructions PO .COMPLEX Qty: 6 0RF Rx Instructions: For 250 mg dose pack: take 500 mg today (day 1), then 250 mg for 4 days (days 2-5) PO prednisone 20 mg tablet 20 mg PO BID Qty: 10 0RF benzonatate 100 mg capsule 100 mg PO BID PRN (Reason: cough) Qty: 20 0RF nicotine (polacrilex) 2 mg gum 2 mg buccal Q2H PRN (Reason: nicotine cravings) Qty: 100 0RF albuterol sulfate 90 mcg/actuation HFA aerosol inhaler See Rx Instructions .ROUTE .COMPLEX Qty: 18 2RF Dose Instruction: INHALE 2 PUFFS BY MOUTH EVERY 4 TO 6 HOURS DIRECTED Rx Instructions: INHALE 2 PUFFS BY MOUTH EVERY 4 TO 6 HOURS DIRECTED simethicone [Gas Relief Extra Strength] 125 mg capsule See Rx Instructions .ROUTE .COMPLEX Qty: 90 0RF Dose Instruction: TAKE ONE CAPSULE BY MOUTH FOUR TIMES A DAY NEEDED Rx Instructions: TAKE ONE CAPSULE BY MOUTH FOUR TIMES A DAY NEEDED Stiolto Respimat 2.5-2.5 mcg/actuation mist 2 puff inhalation DAILY 90 Days Qty: 4 2RF sucralfate 1 gram tablet See Rx Instructions .ROUTE .COMPLEX Qty: 30 0RF Dose Instruction: TAKE ONE TABLET BY MOUTH ONCE A DAY Rx Instructions: TAKE ONE TABLET BY MOUTH ONCE A DAY propranolol 60 mg capsule,extended release 24 hr See Rx Instructions .ROUTE .COMPLEX Qty: 30 0RF Dose Instruction: TAKE ONE CAPSULE BY MOUTH ONCE A DAY Rx Instructions: TAKE ONE CAPSULE BY MOUTH ONCE A DAY atorvastatin 40 mg tablet See Rx Instructions .ROUTE .COMPLEX Qty: 30 0RF Dose Instruction: TAKE ONE TABLET BY MOUTH ONCE A DAY Rx Instructions: TAKE ONE TABLET BY MOUTH ONCE A DAY omeprazole 40 mg capsule,delayed release(DR/EC) See Rx Instructions .ROUTE .COMPLEX Qty: 30 0RF Dose Instruction: TAKE ONE CAPSULE BY MOUTH ONCE A DAY Rx Instructions: TAKE ONE CAPSULE BY MOUTH ONCE A DAY lisinopril 20 mg tablet See Rx Instructions .ROUTE .COMPLEX Qty: 30 0RF Dose Instruction: TAKE ONE TABLET BY MOUTH ONCE A DAY Rx Instructions: TAKE ONE TABLET BY MOUTH ONCE A DAY furosemide 40 mg tablet See Rx Instructions .ROUTE .COMPLEX Qty: 30 0RF Dose Instruction: TAKE ONE TABLET BY MOUTH ONCE A DAY Rx Instructions: TAKE ONE TABLET BY MOUTH ONCE A DAY cyanocobalamin (vitamin B-12) [Vitamin B-12] 5,000 mcg tablet, sublingual See Rx Instructions .ROUTE .COMPLEX Qty: 30 0RF Dose Instruction: DISSOLVE ONE TABLET UNDER THE TONGUE ONCE A DAY Rx Instructions: DISSOLVE ONE TABLET UNDER THE TONGUE ONCE A DAY aspirin 81 mg tablet,delayed release (DR/EC) 81 mg PO DAILY Referrals Follow up/Referrals: Hoang Matias DO [Primary Care Provider] - See instructions Activity Restrictions/Add. Instructions Additional Instructions/Restrictions: You were evaluated in the ER and are appropriate for discharge at this time. Continue taking your home medications as previously prescribed. Take Tylenol or ibuprofen if needed for pain. Do not exceed the recommended dose on the bottle. Drink water and eat a small snack each time you take these medications to avoid side effects. Use the prescribed lidocaine patches as directed. Remove the lidocaine patch that you currently have on around 11 AM tomorrow, 01/12/2025. Make an appoint with your primary care doctor for reevaluation and to discuss physical therapy. Return to the ER with new, worsening, or otherwise concerning symptoms. Clinical Impressions Clinical Impression: Acute low back pain with sciatica Instructions Patient Instructions: DI for Low Back Pain Print Language Print Language: Amharic Discharge ED Provider: Heriberto Burleson General Adult HPI General Chief complaint: Back Pain/Injury Stated complaint: low back pain Time Seen by Provider: 01/11/25 23:34 Mode of Arrival: Ambulatory Source of Information: Patient Limitations: No Limitations Description of Symptoms (Recalled from ER Triage Doc. by RN): Pt presents for evaluation of back pain x 2 days. Pt states she has tried tylenol, ibuprofen, and biofreeze. Pt states the back pain is radiating down to her right leg. History of Present Illness HPI narrative: 59-year-old female presents with 2 days of right sided back pain radiating into the back of the right leg. She states she does not recall a specific sudden onset of the pain. She states she does have a nerve stimulator and rods in her back. Patient reports she is mostly concerned about making sure she does not have a urinary or kidney infection, she denies dysuria or hematuria, no fevers or chills. Patient has no numbness or weakness in the legs, no saddle anesthesia, no bowel or bladder incontinence or retention. She states the muscles on the right side of her back are tight. ROS otherwise negative. Related Data Home Medications ?Medication ?Instructions ?Recorded ?Confirmed aspirin 81 mg tablet,delayed 81 mg PO DAILY 05/14/24 01/11/25 release Previous Rx's ?Medication ?Instructions ?Recorded alendronate 70 mg tablet 70 mg PO WEEKLY #12 tabs 05/28/24 albuterol sulfate 90 mcg/actuation See Rx Instructions .Route 09/11/24 aerosol inhaler .COMPLEX #18 grams simethicone 125 mg capsule (Gas See Rx Instructions .Route 09/11/24 Relief Extra Strength) .COMPLEX #90 caps nicotine (polacrilex) 2 mg gum 2 mg buccal Q2H PRN nicotine 09/16/24 cravings #100 ea tiotropium 2.5 mcg-olodaterol 2.5 2 puff inhalation DAILY 90 days #4 10/09/24 mcg/actuation mist for inhalation grams (Stiolto Respimat) azithromycin 250 mg tablet See Rx Instructions PO .COMPLEX #6 12/29/24 (Zithromax Z-Ortiz) tabs benzonatate 100 mg capsule 100 mg PO BID PRN cough #20 caps 12/29/24 prednisone 20 mg tablet 20 mg PO BID #10 tabs 12/29/24 atorvastatin 40 mg tablet See Rx Instructions .Route 01/07/25 .COMPLEX #30 tabs cyanocobalamin (vitamin B-12) See Rx Instructions .Route 01/07/25 5,000 mcg sublingual tablet .COMPLEX #30 tabs (Vitamin B-12) furosemide 40 mg tablet See Rx Instructions .Route 01/07/25 .COMPLEX #30 tabs lisinopril 20 mg tablet See Rx Instructions .Route 01/07/25 .COMPLEX #30 tabs omeprazole 40 mg capsule,delayed See Rx Instructions .Route 01/07/25 release .COMPLEX #30 caps propranolol 60 mg capsule,24 See Rx Instructions .Route 01/07/25 hr,extended release .COMPLEX #30 caps sucralfate 1 gram tablet See Rx Instructions .Route 01/07/25 .COMPLEX #30 tabs lidocaine 5 % topical patch See Rx Instructions topical 01/11/25 .COMPLEX #15 ea Allergies Allergy/AdvReac Type Severity Reaction Status Date / Time ciprofloxacin (From CIPRO) Allergy Unknown HIVES/RASH Verified 01/11/25 21:33 PFSH PFS Disclaimer: The information contained in this section may have been updated after the patient was seen, as this information can be updated by other users. Medical History Encounter for screening for malignant neoplasm of lung Smoking greater than 30 pack years Acute interstitial pneumonia FH: early menopause Laceration of thumb Insomnia Amitriptyline is not been successful we will stop this medication. I think her big problem is her obstructive sleep apnea see below. Recurrent major depression resistant to treatment Thyroid enlarged Hx of malignant melanoma Myocardial bridge Atypical angina Abnormal cardiovascular stress test Encounter for pre-operative cardiovascular clearance Exposure to COVID-19 virus Claudication Edema Depression Acute bronchitis Chronic headaches Viral upper respiratory infection Headache Vitamin D deficiency Patient is on supplementation we will check a vitamin D today. Fibromyalgia Lightheaded Fatigue Tobacco abuse Discussed with Ekta her need to quit smoking. Something happened to this Chantix prescription and I am not sure whether this is the pharmacies issue or ours. We will try to sort this out and get this prescription for Ekta as she still willing to use it. COPD (chronic obstructive pulmonary disease) HTN (hypertension) Chest pain Surgical History History of appendectomy History of ankle surgery History of colonoscopy Family History Other Family history of cancer Family history of hypertension Social History Smoking Status: Never smoker second hand exposure: Yes alcohol intake: never substance use type: denies use current occupational status: disabled Travel in the last 8 weeks: None household members: family housing: house number of children: 2 current occupational exposures/hazards: No caffeine: Yes Have you lived/traveled outside US in past 30 days?: No Contact w/someone who lives/traveled outside US past 30 days?: No Exposure to someone with infectious disease in past 14 days?: No Do you have a fever (greater than 100.4 F or 38 C)?: No Have you tested positive for COVID-19: No Exposed to someone with COVID-19 in past 14 days?: No Do you have a sore throat?: No Do you have a cough?: No Do you have any weakness?: No Do you have any diarrhea?: No Are you experiencing any unusual bleeding?: No Do you have any muscle aches/pain?: No Do you have any abdominal pain?: No Are you experiencing loss of taste or smell?: No Other Medical History Have you received the Flu Vaccine for this season: No Have you received the Pneumonia Vaccine: No ROS Obtained: Yes Systems reviewed as appropriate & no additional complaints except as documented Physical Exam General General appearance: alert and in no apparent distress Head Head exam: atraumatic and normocephalic Eye Eye exam: Present PERRL and EOMI ENT ENT exam: Present mucous membranes moist Neck Neck exam: Present normal inspection and full ROM Chest Chest inspection: Present symmetric chest wall rise Respiratory Respiratory exam: Absent respiratory distress or stridor Cardiovascular Cardiovascular exam: Present regular rate and normal rhythm Abdominal Exam Abdominal exam: Present soft; Absent distention or tenderness Extremities Exam Extremities exam: Present full ROM Back Exam Back exam: Present paraspinal tenderness (Right lumbar paraspinal muscle tenderness with spasm evident); Absent CVA tenderness (R), CVA tenderness (L), sciatic notch tenderness (R) or sciatic notch tenderness (L) Neurological Exam Neurological exam: Present alert, oriented X3, CN II-XII intact, normal gait and other (No saddle anesthesia); Absent motor sensory deficit Psychiatric Psychiatric exam: Present normal affect and normal mood Skin Skin exam: Present warm and dry Medical Decision Making Medical Records Medical records reviewed: Yes I reviewed the patient's medical records. Screening: Per USPSTF and CDC recommendations, given the prevalence of disease in our reg ion, it is our hospital?s policy to screen for HIV and viral Hepatitis for all patients aged 18 and over and those with ongoing risk factors. MR Comment: Patient was seen in July 2024 by anesthesia for concerns of cervical radiculopathy. Prior to that she had had cervical epidural steroid injection per my review of records. Robby Inquiry Pt receiving controlled substance: No Vital Signs: 01/11/25 21:28 01/12/25 00:00 Temperature 98.2 F 98.2 F Temperature Source Oral Oral Pulse Rate 78 Pulse Rate [Right] 78 Respiratory Rate 18 18 Blood Pressure 140/80 Blood Pressure [Right Arm] 149/99 H Blood Pressure Mean [Right Arm] 115 Blood Pressure Source Manual Cuff/ Doppler Blood Pressure Source [Right Arm] Automatic Cuff Blood Pressure Position Sitting Blood Pressure Position [Right Arm] Sitting 02 Sat by Pulse Oximetry 98 Oxygen Delivery Method Room Air Room Air Lab Data Lab Results 01/11/25 21:36: Urine Color Yellow, Urine Appearance Clear, Urine pH 6.5, Ur Specific [place] 1.020, Urine Protein Negative, Urine Glucose (UA) Negative, Urine Ketones Negative, Urine Blood Negative, Urine Nitrate Negative, Urine Bili sales Negative, Urine Urobilinogen 0.2, Ur Leukocyte Esterase Negative, Urine RBC None, Urine WBC Occasional, Ur Squamous Epith Cells Occasional, Urine Bacteria Trace, Urine Mucus 3+ Orders (Tests/Meds): ED MEDICATIONS Discontinued Medications Generic Name Dose Route Start Last Admin Trade Name Conradq PRN Reason Stop Dose Admin Lidocaine 1 each 01/11/25 23:50 01/11/25 23:57 Lidocaine 5% Transdermal Patch TP 01/11/25 23:51 1 each ONCE ONE Administration ORDERS Category Date Time Status Urinalysis and Microscopic Stat Lab 01/11/25 21:36 Completed Medical Decision Narrative: In summary, this 59-year-old female with history of back pain, type 2 diabetes, fibromyalgia all of which increased the amount of data be reviewed as well as her overall morbidity presents to the emergency department today with right sided back pain radiating into the right leg. On initial evaluation patient is hemodynamically stable, afebrile, patient has tenderness to palpation of the right lumbar paraspinal muscles, she also has tenderness along the sciatic distribution on the right but full strength in the lower extremities, no saddle anesthesia, no red flag symptoms that would be concerning for cauda equina though this was considered on my differential. She has no abdominal pain or tenderness, no CVA tenderness. Differential diagnosis includes but is not limited to urinary tract infection, pyelonephritis, though I have lower suspicion for both of these since patient does not have any urinary symptoms or CVA tenderness, radiculopathy, sciatica, muscle spasm. UA reviewed by me is negative for findings of infection. Patient reports she has taken Tylenol and ibuprofen at home, she was treated with topical lidocaine patch for additional multimodal pain control. Lidocaine patches were prescribed for outpatient management. Patient was given instructions on symptomatic management, follow up instructions including recommendations to ask her PCP about possible physical therapy, and return precautions for the emergency department. Patient indicated understanding and was discharged in stable condition. Ambulated independently out of the ER. Critical Care Critical Care Time Critical Care Time: No
[2025-01-11] MEDS: LIDOCAINE 5% TRANSDERMAL PATCH 1 EACH TP (23:57)
[2025-01-12] VITALS: BP 140/80; PULSE 78; RESP 18; TEMP 36.8; O2SAT 98
== END 2025-01-12 00:12 | disposition home or self-care (01) ==
PROVIDERS: Emergency Provider Emergency Medicine; PCP Internal Medicine
DX: M54.40 Lumbago with sciatica, unspecified side (principal); M79.604 Pain in right leg; E11.9 Type 2 diabetes mellitus without complications; M79.7 Fibromyalgia
CPT/HCPCS: 81001; 99283

== ENCOUNTER 2025-02-24 15:28 | Outpatient (CLI) | payer MEDICARE, OTHER, SELFPAY ==
--- NOTE | 2025-02-24 16:15 | MM_ITS ---
PROCEDURE INFORMATION: Exam: MG Bilateral Screening 3D Mammography Exam date and time: 02/24/2025 3:45 PM Age: 59 years old Clinical indication: Screening examination TECHNIQUE: Imaging protocol: Bilateral Screening tomosynthesis and 2D mammography including computer-aided detection (CAD) when performed. COMPARISON: 1. MG MM DIG SCREENING MAMM BI W/CAD 02/26/2020 12:48 PM 2. MG DMSB DIG MAMM-SCREEN ANDREW 02/11/2015 9:21 AM FINDINGS: MAMMOGRAPHY: Breast composition: The breasts are almost entirely fatty. Mass: None. Architectural distortion: None. Calcifications: No suspicious calcifications. Asymmetric density: None. Skin thickening: None. Axillary adenopathy: None. IMPRESSION: No mammographic evidence of malignancy. Annual screening is recommended unless otherwise clinically indicated. ASSESSMENT: BI-RADS Category 1: Negative.
== END 2025-02-24 23:59 | disposition home or self-care (01) ==
LOC: RAD 15:29
PROVIDERS: PCP Internal Medicine; Visit Provider Internal Medicine
DX: Z12.31 Encounter for screening mammogram for malignant neoplasm of breast (principal)
CPT/HCPCS: 77063; 77067

== ENCOUNTER 2025-03-19 14:43 | Outpatient (CLI) | payer MEDICARE, OTHER, SELFPAY ==
[2025-03-19 14:48] LABS: MANUAL DIFFERENTIAL MANUAL DIFFERENTIAL (MANUAL DIFF)
[2025-03-19 15:15] LABS: Basophils # 0.1 K/mm3 (0-0.2); Basophils % 0.7 % (0.1-2.0); Eosinophils # 0.2 Kmm3 (0.0-0.4); Eosinophils % 2.1 % (0.1-12.0); Hematocrit 43.2 % (37.0-47.0); Hemoglobin 14.6 g/dL (12.2-16.2); Lymphocytes # 2.6 K/mm3 (0.7-4.5); Mean Corpuscular HGB Conc 33.8 g/dL (31.8-35.4); Mean Corpuscular Volume 85.7 fl (81-99); Mean Platelet Volume 10.9 fl (7.4-10.4); Monocytes # 0.5 K/mm3 (0.1-1.0); Monocytes % 6.3 % (1.7-9.3); Neutrophils # 3.9 K/mm3 (1.8-7.8); Neutrophils % 54.6 % (37.0-80.0); Platelet Count 223 K/mm3 (142-424); Red Blood Count 5.04 M/mm3 (4.20-5.40); Red Cell Distribution Width 13.1 % (11.5-17.5); White Blood Count 7.2 K/mm3 (4.8-10.8)
[2025-03-19 15:38] LABS: Eosinophils % 1 % (0-3); Lymphocytes % 51 % (10-50); Monocytes % 4 % (2-9); Neutrophils % 43 % (42-76); Platelet Estimate Normal; Total Cells Counted 100
[2025-03-19 15:39] LABS: Albumin Level 4.6 g/dl (3.5-5.0); Chloride 104 mmol/L (98-107); Potassium 4.3 mmoL/L (3.5-5.1); Sodium 138 mmol/L (136-145)
[2025-03-19 15:42] LABS: Alanine Aminotransferase 36 U/L (12-78); Albumin/Globulin Ratio 1.5 (1.1-1.8); Alkaline Phosphatase 85 U/L (38-126); Anion Gap 12.3 mEq/L (5-15); Aspartate Amino Transferase 37 U/L (14-36); Bilirubin,Total 0.9 mg/dl (0.2-1.3); Blood Urea Nitrogen 15 mg/dl (7-17); Calcium 9.5 mg/dl (8.4-10.2); Carbon Dioxide 26 mmol/L (22.0-30.0); Cholesterol 178 mg/dl (140-200); Estimated Glomerular Filt Rate 86 ml/min (>60); GFR (African American) 104 ML/MIN (>60); Glucose 101 mg/dl (74-100); Total Protein,Serum 7.6 g/dl (6.3-8.2)
[2025-03-19 15:43] LABS: Chol/HDL Ratio 4.9 (1-3.5); HDL Cholesterol 36 mg/dl (40-60)
[2025-03-19 15:44] LABS: Triglycerides 510 mg/dl (30-150)
[2025-03-19 15:47] LABS: Poikilocytosis 1+; Target Cells 1+; Tear Drop Cells 1+
[2025-03-19 15:53] LABS: Direct LDL Cholesterol 63.82 mg/dL (100-129)
[2025-03-21 12:22] LABS: H. pylori Breath Test Negative (Negative)
== END 2025-03-19 23:59 | disposition home or self-care (01) ==
LOC: LAB 14:44
PROVIDERS: Internal Medicine; PCP Family Medicine; Visit Provider Family Medicine
DX: K63.89 Other specified diseases of intestine (principal); R10.13 Epigastric pain; G89.29 Other chronic pain; E78.2 Mixed hyperlipidemia
CPT/HCPCS: 36415; 80053; 80061; 83013; 85007; 85014; 85018; 85048; 85049

== ENCOUNTER 2025-03-30 13:29 | Outpatient (CLI) | payer MEDICARE, OTHER, SELFPAY ==
[2025-03-30 15:00] VITALS: PULSE 64; PULSE 70
[2025-03-30] MEDS: ALBUTEROL 0.083% 2.5 MG/3 ML NEB IH (15:00)
== END 2025-03-30 23:59 | disposition home or self-care (01) ==
LOC: RT 13:30
PROVIDERS: PCP Family Medicine; Visit Provider Family Medicine
DX: R93.89 Abnormal findings on diagnostic imaging of other specified body structures (principal); R06.02 Shortness of breath
CPT/HCPCS: 94060; 94640; 94726; 94729; J7613

== ENCOUNTER 2025-05-11 11:23 | Outpatient (CLI) | payer MEDICARE, OTHER, SELFPAY ==
--- OUTSIDE RECORDS SUMMARY | 2025-05-12 10:56 | XMS_ITS | Clinical Summary ---
Author Organization Healthcare Address [address] [id number] Care Team Providers Care Lumber Handler Name Role Phone Miguel Herron APRN Primary Care Provider [phone]- [phone] Family History Medical History Relation Name Comments Heart attack Mother Cardiac disorder Other 1 Colon cancer Other 2 Hypertension Other 3 Lung cancer Other 4 Heart attack Other 5 Pancreatic cancer Other 6 Conversions - Other Other 7 Recurren t Guillain-[place] syndrome Pancreatic cancer Sister Relation Name Status Comments Mother Other 1 Other 2 Other 3 Other 4 Other 5 Other 6 Other 7 Sister Social History Tobacco Use Types Packs/Day Years Used Date Smoking Tobacco: Every Day Comments:Smokes 1 pack of ci garettes per day Alcohol Use Standard Drinks/Week Comments No 0 (1 standard drink = 0.6 oz pur e alcohol) Comments Unknown Sex and Gender Information Value Date Recorded Sex Assigned at Not on file Legal Sex Female 6:52 PM EDT Gender Identity Not on file Sexual Orientation Not on file Last Filed Vital Signs Vital Sign Reading Time Taken Comments Blood Pressure - - Pulse - - Temperature - - Respiratory Rate - - Oxygen Saturation - - Inhaled Oxygen Concentration - - Weight 102 kg (225 lb) 03/08/2016 12:35 PM EDT Height 165.1 cm (5' 5 ) 03/08/2016 12:35 PM EDT Body Mass Index 37.44 03/08/2016 12:35 PM EDT Plan of Treatment Health Maintenance Due Date Last Done Comments [facility]-Depression Screening 1966 [facility]-/Child/Adol SDOH Screenings 1966 [facility]- SDOH Screenings 1984 [facility]-Adult SDOH Screenings 1984 [facility]-Hepatitis B Vaccines (1 of 3 - 19+ 3-dose series) 1985 [facility]-Pap Smear 1987 [facility]-Cervical Cancer Screening 1996 [facility]-HPV/Cotest 1996 CT Colonography 2011 Colonoscopy 2011 FIT-DNA 2011 FIT 2011 FOBT 2011 Sigmoidoscopy 2011 [facility]-Colorectal Cancer Screening 2011 [facility]-Zoster Vaccines (1 of 2) 2016 [facility]-Pneumococcal Vaccine: 50 + Years (2 of 2 - PCV) 09/05/2017 09/05/2016 [facility]-DTaP,Tdap,and Td Vaccine s (1 - Tdap) 11/20/2022 11/19/2022 [id number] Vaccine (3 - season) 2024 04/11/2021, 03/16/2021 [facility]-Influenza Vaccine ([place] n Ended) 2025 09/05/2016 HPV Vaccines Aged Out No longer eligi ble based on patient's age to complete this topic [facility]-HIB Vaccines Aged Out No longer e ligible based on patient's age to complete this topic [facility]-Hepatitis A Vaccines Aged Out No longer eligible based on patient's age to complete this topic [facility]-IPV Vaccines Aged Out No longer e ligible based on patient's age to complete this topic [facility]-Rotavirus Vaccines Aged Out No lo nger eligible based on patient's age to complete this topic Insurance [facility] MEDICAID Care Teams Lumber Handler Relationship Specialty Start Date End Date Miguel Herron APRN [address] [place], [place] [id number] [facility] - General 04/14/21
--- OUTSIDE RECORDS SUMMARY | 2025-05-12 11:56 | XMS_ITS | CCD ---
Author Organization Unknown Care Team Providers Care Mail Order Sorter Name Role Phone Unavailable Primary Care Provider Unavailabl e Unavailable Chronic Care Management Unavaila ble Summary Purpose DataExchange Insurance Providers Payer name Policy type / Coverage type Covered libertarian ID Effective Begin Date Effective End Date [facility] [id number] Unknown Unknown Family History Family History data not found Medication Administered No Medication Administered data Reason For Visit No Reason For Visit data Medical Equipment No Medical Equipment data Advance Directives No Advance Directive data
--- OUTSIDE RECORDS SUMMARY | 2025-05-12 11:56 | XMS_ITS | CCD ---
Author Organization Unknown Care Team Providers Care Surveyor Instrument Assistant Name Role Phone Unavailable Primary Care Provider Unavailabl e Unavailable Chronic Care Management Unavaila ble Summary Purpose DataExchange Insurance Providers Payer name Policy type / Coverage type Covered democrat ID Effective Begin Date Effective End Date [facility] [id number] Unknown Unknown Family History Family History data not found Medication Administered No Medication Administered data Reason For Visit No Reason For Visit data Medical Equipment No Medical Equipment data Advance Directives No Advance Directive data
== END 2025-05-11 23:59 | disposition home or self-care (01) ==
LOC: LAB.DROPOF 05-12 10:51
PROVIDERS: PCP Student in an Organized Health Care Education/Training Program; Visit Provider Student in an Organized Health Care Education/Training Program
DX: R05.9 Cough, unspecified (principal)
CPT/HCPCS: 87635

== ENCOUNTER 2025-05-21 11:01 | Outpatient (CLI) | payer MEDICARE, OTHER, SELFPAY ==
[2025-05-21 18:14] LABS: Basophils # 0.1 K/mm3 (0-0.2); Basophils % 0.7 % (0.1-2.0); Eosinophils # 0.2 Kmm3 (0.0-0.4); Eosinophils % 2.3 % (0.1-12.0); Hematocrit 41.7 % (37.0-47.0); Hemoglobin 13.7 g/dL (12.2-16.2); Immature Granulocytes # 0.05 10^3uL; Immature Granulocytes % 0.7 %; Lymphocytes # 2.2 K/mm3 (0.7-4.5); Lymphocytes % 29.9 % (10-50); Mean Corpuscular HGB Conc 32.9 g/dL (31.8-35.4); Mean Corpuscular Hemoglobin 28.7 pg (27.0-31.2); Mean Corpuscular Volume 87.2 fl (81-99); Mean Platelet Volume 10.9 fl (7.4-10.4); Monocytes # 0.4 K/mm3 (0.1-1.0); Monocytes % 5.3 % (1.7-9.3); Neutrophils # 4.5 K/mm3 (1.8-7.8); Neutrophils % 61.1 % (37.0-80.0); Nucleated Red Blood Cells # 0 10^3/uL; Nucleated Red Blood Cells % 0 %; Platelet Count 187 K/mm3 (142-424); Red Blood Count 4.78 M/mm3 (4.20-5.40); Red Cell Distribution Width-SD 41.1 fL; White Blood Count 7.4 K/mm3 (4.8-10.8)
[2025-05-21 18:40] LABS: Hemoglobin A1C 7.9 % (4.0-6.0)
[2025-05-21 18:42] LABS: Creatinine,Urine Random 112 mg/dL (Not Estab.)
[2025-05-21 18:44] LABS: Microalbumin < 6.000 mg/L (0-16.7)
[2025-05-21 19:19] LABS: Albumin Level 4.1 g/dl (3.5-5.0); Chloride 106 mmol/L (98-107); Potassium 4.2 mmoL/L (3.5-5.1); Sodium 139 mmol/L (136-145)
[2025-05-21 19:22] LABS: Alanine Aminotransferase 29 U/L (12-78); Albumin/Globulin Ratio 1.5 (1.1-1.8); Alkaline Phosphatase 98 U/L (38-126); Anion Gap 10.2 mEq/L (5-15); Aspartate Amino Transferase 28 U/L (14-36); Bilirubin,Total 0.8 mg/dl (0.2-1.3); Blood Urea Nitrogen 14 mg/dl (7-17); Calcium 9.4 mg/dl (8.4-10.2); Carbon Dioxide 27 mmol/L (22.0-30.0); Estimated Glomerular Filt Rate 86 ml/min (>60); GFR (African American) 104 ML/MIN (>60); Globulin 2.8 g/dL (1.3-3.2); Glucose 116 mg/dl (74-100); Total Protein,Serum 6.9 g/dl (6.3-8.2)
[2025-05-21 19:52] LABS: T4 (Thyroxine) 9.5 ug/dl (5.53-11.0); Triiodothryronine (T3) Uptake 32 % (23.5-40.5)
[2025-05-21 20:05] LABS: Thyroid Stimulating Hormone 0.95 uIU/mL (0.465-4.68)
--- OUTSIDE RECORDS SUMMARY | 2025-05-24 12:33 | XMS_ITS | Clinical Summary ---
Author Organization Healthcare Address [address] [id number] Care Team Providers Care Set O Type Operator Name Role Phone Miguel Herron APRN Primary Care Provider +1- [phone] Family History Medical History Relation Name Comments Heart attack Mother Cardiac disorder Other 1 Colon cancer Other 2 Hypertension Other 3 Lung cancer Other 4 Heart attack Other 5 Pancreatic cancer Other 6 Conversions - Other Other 7 Recurren t Guillain-[place] syndrome Pancreatic cancer Sister Relation Name Status [...] Vaccine s (1 - Tdap) 11/20/2022 11/19/2022 [id number] Vaccine (3 - season) 2024 04/11/2021, 03/16/2021 [...] patient's age to complete this topic Insurance [facility] MEDICAID Care Teams Set O Type Operator Relationship Specialty Start Date End Date Miguel Herron APRN [address] [place], [place] [phone] [facility] - General 04/14/21
--- OUTSIDE RECORDS SUMMARY | 2025-05-24 13:33 | XMS_ITS | CCD ---
Author Organization Unknown Care Team Providers Care Heeler Machine Name Role Phone Unavailable Primary Care Provider Unavailabl e Unavailable Chronic Care Management Unavaila ble Summary Purpose DataExchange Insurance Providers Payer name Policy type / Coverage type Covered democrat ID Effective Begin Date Effective End Date [facility] [id number] Unknown Unknown Family History Family History data not found Medication Administered No Medication Administered data Reason For Visit No Reason For Visit data Medical Equipment No Medical Equipment data Advance Directives No Advance Directive data
--- OUTSIDE RECORDS SUMMARY | 2025-05-24 13:33 | XMS_ITS | CCD ---
Author Organization Unknown Care Team Providers Care Residential Collections Name Role Phone Unavailable Primary Care Provider Unavailabl e Unavailable Chronic Care Management Unavaila ble Summary Purpose DataExchange Insurance Providers Payer name Policy type / Coverage type Covered alliance party ID Effective Begin Date Effective End Date [facility] [id number] Unknown Unknown Family History Family History data not found Medication Administered No Medication Administered data Reason For Visit No Reason For Visit data Medical Equipment No Medical Equipment data Advance Directives No Advance Directive data
== END 2025-05-21 23:59 | disposition home or self-care (01) ==
LOC: LAB.DROPOF 05-24 12:31
PROVIDERS: PCP Family Medicine; Visit Provider Family Medicine
DX: E11.69 Type 2 diabetes mellitus with other specified complication (principal); E66.9 Obesity, unspecified
CPT/HCPCS: 80053; 82043; 82570; 83036; 84436; 84443; 84479; 85025

== ENCOUNTER 2025-06-02 20:59 | Emergency (ER) | payer MEDICARE, OTHER, SELFPAY ==
[2025-06-02] VITALS (7 sets, daily range): BP systolic 140–196; BP diastolic 77–103; PULSE 76–90; RESP 16–18; TEMP 36.6; O2SAT 92–98; BMI 37.3
[2025-06-02 21:10] LABS: Microscopic, Urine URINE MICROSCOPIC (MICROSCOPIC)
--- OUTSIDE RECORDS SUMMARY | 2025-06-02 21:14 | XMS_ITS | Clinical Summary ---
Author Organization Healthcare Address [address] [id number] Care Team Providers Care Property Disposal Officer Name Role Phone Miguel Herron APRN Primary Care Provider +1- [phone] Family History Medical History Relation Name Comments Heart attack Mother Cardiac disorder Other 1 Colon cancer Other 2 Hypertension Other 3 Lung cancer Other 4 Heart attack Other 5 Pancreatic cancer Other 6 Conversions - Other Other 7 Recurren t Guillain-[place] syndrome Pancreatic cancer Sister Relation Name Status [...] Vaccine s (1 - Tdap) 11/20/2022 11/19/2022 [id number] Vaccine (3 - season) 2024 04/11/2021, 03/16/2021 [...] patient's age to complete this topic Insurance [facility] MEDICAID Care Teams Property Disposal Officer Relationship Specialty Start Date End Date Miguel Herron APRN [address] [place], [place] [phone] [facility] - General 04/14/21
[2025-06-02 21:17] LABS: Bilirubin,Urine Negative (Negative); Color,Urine YELLOW (Yellow); Glucose,Urine (UA) Negative (Negative); Ketones,Urine Negative (Negative); Leukocyte Esterase,Urine Negative (Negative); PH,Urine 6.5 (5.0-8.5); Protein,Urine Negative (Negative); Specific Gravity, Urine 1.015 (1.005-1.030); Urobilinogen,Urine 0.2 EU/dl (0.2)
--- NOTE | 2025-06-02 21:17 | CT_ITS ---
PROCEDURE INFORMATION: Exam: CT Abdomen And Pelvis With Contrast Exam date and time: 06/02/2025 9:44 PM Age: 59 years old Clinical indication: Abdominal pain; Additional info: Abd pain, worse on L side TECHNIQUE: Imaging protocol: Computed tomography of the abdomen and pelvis with contrast. Radiation optimization: All CT scans at this facility use at least one of these dose optimization techniques: automated exposure control; mA and/or kV adjustment per patient size (includes targeted exams where dose is matched to clinical indication); or iterative reconstruction. Contrast material: ISOVUE; Contrast volume: 75 ml; Contrast route: IV; COMPARISON: CT - ABDPELWO CT abdomen pelvis wo con 07/17/2018 2:36 PM FINDINGS: Tubes, catheters and devices: Spinal stimulator generator pack within the left lumbar region. Lungs: Lung bases are clear. Small granuloma within the left lower lobe. Pleural spaces: No pleural effusion. Heart: The visualized heart is normal. No pericardial effusion. Liver: The liver is diffusely hypodense, consistent with steatosis. Gallbladder and biliary ducts: The gallbladder is unremarkable. No biliary ductal dilatation. Pancreas: The pancreas is unremarkable. Spleen: The spleen is unremarkable. Adrenal glands: The adrenal glands are normal. Kidneys and ureters: The kidneys enhance symmetrically without hydronephrosis. The ureters have normal course and caliber without stone. Stomach and bowel: The stomach is normal. The small bowel has normal course and caliber. There is scattered colonic diverticula with a segment of wall thickening and pericolonic inflammatory stranding at the junction of the sigmoid and descending colon. Appendix: Not identified. No evidence of appendicitis. Intraperitoneal space: No free air. No significant fluid collection. Vasculature: No abdominal aortic aneurysm. Lymph nodes: No enlarged lymph nodes. Urinary bladder: The bladder is normal without focal wall thickening. Reproductive: The uterus is absent. No adnexal cysts or masses are identified. Bones/joints: Multilevel degenerative type changes of the spine. No acute osseous abnormality. Soft tissues: Fat containing inguinal hernias. IMPRESSION: 1. Findings consistent with acute uncomplicated diverticulitis. As an underlying malignancy cannot be entirely excluded, a follow-up examination after a course of treatment is recommended if clinically warranted. 2. Other findings as above.
--- NOTE | 2025-06-02 21:21 | HMH.EDGENADL ---
Discharge Plan Disposition Patient Disposition: Home, Self-Care Prescriptions Prescriptions: New amoxicillin-pot clavulanate 875-125 mg tablet 1 tab PO BID 10 Days Qty: 20 0RF No Action metoclopramide HCl [Reglan] 5 mg tablet 5 mg PO QAC Qty: 90 0RF Rx Instructions: administer 30 minutes before meals glipizide 5 mg tablet 5 mg PO DAILY Qty: 30 2RF Ozempic 0.25 mg or 0.5 mg (2 mg/3 mL) pen injector 0.25 mg SQ WEEKLY Qty: 3 0RF Rx Instructions: for 4 weeks (DME) blood-glucose meter [Accu-Chek Guide Glucose Meter] Mis See Rx Instructions .ROUTE .MEDSUPPLY Qty: 1 0RF Rx Instructions: As directed (DME) Accu-Chek Janna Plus test strp Strip See Rx Instructions .ROUTE .MEDSUPPLY Qty: 10 0RF Rx Instructions: As directed (DME) lancets [Accu-Chek Softclix Lancets] Mis See Rx Instructions .ROUTE .MEDSUPPLY Qty: 100 0RF Rx Instructions: As directed fluticasone propionate [Flonase Allergy Relief] 50 mcg/actuation spray,suspension 1 spray intranasal DAILY PRN (Reason: allergy symptoms) Qty: 16 0RF Rx Instructions: administer into each nostril propranolol 60 mg capsule,extended release 24 hr See Rx Instructions .ROUTE .COMPLEX Qty: 30 0RF Dose Instruction: TAKE ONE CAPSULE BY MOUTH ONCE A DAY Rx Instructions: TAKE ONE CAPSULE BY MOUTH ONCE A DAY cyanocobalamin (vitamin B-12) [Vitamin B-12] 5,000 mcg tablet, sublingual See Rx Instructions .ROUTE .COMPLEX Qty: 30 0RF Dose Instruction: DISSOLVE ONE TABLET UNDER THE TONGUE ONCE A DAY Rx Instructions: DISSOLVE ONE TABLET UNDER THE TONGUE ONCE A DAY aspirin 81 mg tablet,delayed release (DR/EC) 81 mg PO DAILY Qty: 90 0RF atorvastatin 40 mg tablet See Rx Instructions .ROUTE .COMPLEX Qty: 90 0RF Dose Instruction: TAKE ONE TABLET BY MOUTH ONCE A DAY Rx Instructions: TAKE ONE TABLET BY MOUTH ONCE A DAY furosemide 40 mg tablet See Rx Instructions .ROUTE .COMPLEX Qty: 90 0RF Dose Instruction: TAKE ONE TABLET BY MOUTH ONCE A DAY Rx Instructions: TAKE ONE TABLET BY MOUTH ONCE A DAY lisinopril 20 mg tablet See Rx Instructions .ROUTE .COMPLEX Qty: 90 0RF Dose Instruction: TAKE ONE TABLET BY MOUTH ONCE A DAY Rx Instructions: TAKE ONE TABLET BY MOUTH ONCE A DAY omeprazole 40 mg capsule,delayed release(/EC) See Rx Instructions .ROUTE .COMPLEX Qty: 90 0RF Dose Instruction: TAKE ONE CAPSULE BY MOUTH ONCE A DAY Rx Instructions: TAKE ONE CAPSULE BY MOUTH ONCE A DAY hydroxyzine pamoate 25 mg capsule See Rx Instructions .ROUTE .COMPLEX Qty: 60 1RF Dose Instruction: TAKE 1 TO 2 CAPSULES 3 TIMES A DAY NEEDED FOR ANXIETY Rx Instructions: TAKE 1 TO 2 CAPSULES 3 TIMES A DAY NEEDED FOR ANXIETY escitalopram oxalate [Lexapro] 10 mg tablet 10 mg PO DAILY Qty: 30 2RF Referrals Follow up/Referrals: Mohsen Farley II, MD [Staff Physician, Gastroenterology] - See instructions Juan José David MD [Primary Care Provider, Family Practice] - See instructions Activity Restrictions/Add. Instructions Additional Instructions/Restrictions: Please follow-up with Dr. Santana as previously instructed or with Dr. Farley for further management and evaluation of your diverticulitis to follow to resolution also to schedule an outpatient colonoscopy once your symptoms have improved. Clinical Impressions Clinical Impression: Diverticulitis Instructions Patient Instructions: DI for Acute Abdominal Pain Print Language Print Language: Romansh Discharge ED Provider: Ha Osborne General Adult HPI <Margaux Paez APRN - Last Filed: 06/02/25 21:31> General Chief complaint: Abdominal Pain Stated complaint: left abdominal pain Time Seen by Provider: 06/02/25 21:12 Mode of Arrival: Ambulatory Source of Information: Patient Description of Symptoms (Recalled from ER Triage Doc. by RN): Pt presents with c/o left sided abd pain that began approx 4 days ago. pt reports to taking miralax and gas x with no relief from symptoms. Pt reports to beginning Ozempic recently when symptoms began. Pt reports last normal BM days ago. Denies any change in eating habits. History of Present Illness HPI narrative: patient is a 59-year-old female PMHx obesity, hypertension, COPD, fibromyalgia, GERD, history of chest pain, depression, anxiety who presents to the ED for complaints of abdominal pain approximately 4 days ago. Patient states that she was started on Ozempic earlier this week, has not been taking a stool softener with this. Related Data Previous Rx's ?Medication ?Instructions ?Recorded propranolol 60 mg capsule,24 See Rx Instructions .Route 01/07/25 hr,extended release .COMPLEX #30 caps cyanocobalamin (vitamin B-12) See Rx Instructions .Route 03/11/25 5,000 mcg sublingual tablet .COMPLEX #30 tabs (Vitamin B-12) metoclopramide HCl 5 mg tablet 5 mg PO QAC #90 tabs 03/19/25 (Reglan) aspirin 81 mg tablet,delayed 81 mg PO DAILY #90 tabs 04/09/25 release atorvastatin 40 mg tablet See Rx Instructions .Route 04/09/25 .COMPLEX #90 tabs furosemide 40 mg tablet See Rx Instructions .Route 04/09/25 .COMPLEX #90 tabs lisinopril 20 mg tablet See Rx Instructions .Route 04/09/25 .COMPLEX #90 tabs omeprazole 40 mg capsule,delayed See Rx Instructions .Route 04/09/25 release .COMPLEX #90 caps fluticasone propionate 50 1 spray intranasal DAILY PRN 05/21/25 mcg/actuation nasal allergy symptoms #16 grams spray,suspension (Flonase Allergy Relief) blood sugar diagnostic (Accu-Chek #10 ea 05/28/25 Janna Plus test strips) blood-glucose meter (Accu-Chek #1 ea 05/28/25 Guide Glucose Meter) glipizide 5 mg tablet 5 mg PO DAILY #30 tabs 05/28/25 lancets (Accu-Chek Softclix #100 ea 05/28/25 Lancets) semaglutide 0.25 mg or 0.5 mg (2 0.25 mg (0.368 mL) SQ WEEKLY #3 mL 05/28/25 mg/3 mL) subcutaneous pen injector (Ozempic) hydroxyzine pamoate 25 mg capsule See Rx Instructions .Route 05/31/25 .COMPLEX #60 caps escitalopram oxalate 10 mg tablet 10 mg PO DAILY #30 tabs 06/01/25 (Lexapro) amoxicillin 875 mg-potassium 1 tab PO BID 10 days #20 tabs 06/02/25 clavulanate 125 mg tablet Allergies Allergy/AdvReac Type Severity Reaction Status Date / Time ciprofloxacin (From CIPRO) Allergy Unknown HIVES/RASH Verified 05/28/25 14:35 PFSH <Margaux Paez, [employer] - Last Filed: 06/02/25 21:31> [facility] Disclaimer: The information contained in this section may have been updated after the patient was seen, as this information can be updated by other users. Medical History Abnormal chest CT Abdominal pain Encounter for screening for malignant neoplasm of lung Smoking greater than 30 pack years Acute interstitial pneumonia FH: early menopause Laceration of thumb Insomnia Amitriptyline is not been successful we will stop this medication. I think her big problem is her obstructive sleep apnea see below. Recurrent major depression resistant to treatment Thyroid enlarged Hx of malignant melanoma Myocardial bridge Atypical angina Abnormal cardiovascular stress test Encounter for pre-operative cardiovascular clearance Exposure to COVID-19 virus Claudication Edema Depression Acute bronchitis Chronic headaches Viral upper respiratory infection Headache Vitamin D deficiency Patient is on supplementation we will check a vitamin D today. Fibromyalgia Lightheaded Fatigue Tobacco abuse Discussed with Ekta her need to quit smoking. Something happened to this Chantix prescription and I am not sure whether this is the pharmacies issue or ours. We will try to sort this out and get this prescription for Ekta as she still willing to use it. COPD (chronic obstructive pulmonary disease) HTN (hypertension) Chest pain Surgical History History of appendectomy History of ankle surgery History of colonoscopy Family History Other Family history of cancer Family history of hypertension Social History Smoking Status: Current every day smoker tobacco type: cigarettes packs per day: 2 second hand exposure: Yes alcohol intake: never substance use type: denies use current occupational status: disabled Travel in the last 8 weeks?: None household members: family housing: house number of children: 2 current occupational exposures/hazards: No caffeine: Yes Have you lived/traveled outside [place] in past 30 days?: No Contact w/someone who lives/traveled outside US past 30 days?: No Exposure to someone with infectious disease in past 14 days?: No Do you have a fever (greater than 100.4 F or 38 C)?: No Have you tested positive for COVID-19?: No Exposed to someone with COVID-19 in past 14 days?: No Do you have a sore throat?: No Do you have a cough?: No Do you have any weakness?: No Do you have any diarrhea?: No Are you experiencing any unusual bleeding?: No Do you have any muscle aches/pain?: No Do you have any abdominal pain?: No Are you experiencing loss of taste or smell?: No Other Medical History Have you received the Flu Vaccine for this season: No Have you received the Pneumonia Vaccine: No <Margaux Paez APRN - Last Filed: 06/02/25 21:31> ROS Obtained: Yes Systems reviewed as appropriate & no additional complaints except as documented Physical Exam <Margaux Paez APRN - Last Filed: 06/02/25 21:31> General General appearance: alert and in no apparent distress Head Head exam: atraumatic and normocephalic Eye Eye exam: Present normal appearance and PERRL ENT ENT exam: Present normal exam Neck Neck exam: Present normal inspection Chest Chest inspection: Present normal inspection and symmetric chest wall rise; Absent tenderness Respiratory Respiratory exam: Present normal lung sounds bilaterally Cardiovascular Cardiovascular exam: Present regular rate Abdominal Exam Abdominal exam: Present soft, tenderness (LLU, , suprapubic pain ) and normal bowel sounds Extremities Exam Extremities exam: Present normal inspection and full ROM Back Exam Back exam: Present normal inspection and full ROM Neurological Exam Neurological exam: Present alert and oriented X3 Psychiatric Psychiatric exam: Present normal affect and normal mood Skin Skin exam: Present warm and dry Medical Decision Making <Margaux Paez APRN - Last Filed: 06/02/25 21:31> Medical Records Screening: Per USPSTF and CDC recommendations, given the prevalence of disease in our region, it is our hospital?s policy to screen for HIV and viral Hepatitis for all patients aged 18 and over and those with ongoing risk factors. Robby Inquiry Pt receiving controlled substance: No Vital Signs: 06/02/25 21:08 06/02/25 21:30 06/02/25 22:00 Temperature 97.8 F Temperature Source Oral Pulse Rate 89 85 Pulse Rate [Radial] 90 Respiratory Rate 16 Blood Pressure 165/88 H 140/81 Blood Pressure [Right Arm] 196/90 H Blood Pressure Mean [Right Arm] 125 Blood Pressure Position [Right Arm] Sitting 02 Sat by Pulse Oximetry 97 92 L 92 L Oxygen Delivery Method Room Air 06/02/25 22:30 06/02/25 23:00 Temperature Temperature Source Pulse Rate 88 85 Pulse Rate [Radial] Respiratory Rate Blood Pressure 143/77 H 152/90 H Blood Pressure [Right Arm] Blood Pressure Mean [Right Arm] Blood Pressure Position [Right Arm] 02 Sat by Pulse Oximetry 93 L 97 Oxygen Delivery Method Lab Data Lab Results 06/02/25 21:04: Urine Color Yellow, Urine Appearance Clear, Urine pH 6.5, Ur Specific [place] 1.015, Urine Protein Negative, Urine Glucose (UA) Negative, Urine Ketones Negative, Urine Blood Negative, Urine Nitrate Negative, Urine Bilirubin Negative, Urine Urobilinogen 0.2, Ur Leukocyte Esterase Negative, Urine RBC Occasional, Urine WBC 3-5, Ur Squamous Epith Cells 10-20, Amorphous Sediment 3+, Urine Bacteria 1+, Urine HCG, Qual Negative 06/02/25 21:09: WBC 9.3, RBC 4.72, Hgb 13.1, Hct 40.9, MCV 86.7, MCH 27.8, MCHC 32.0, RDW 12.9, Plt Count 205, MPV 10.8 H, Neut % (Auto) 65.2, Lymph % (Auto) 27.0, [place] % (Auto) 5.4, Eos % (Auto) 1.9, Baso % (Auto) 0.3, Neut # (Auto) 6.1, Lymph # (Auto) 2.5, [place] # (Auto) 0.5, Eos # (Auto) 0.2, Baso # (Auto) 0.0, Sodium 137, Potassium 3.7, Chloride 97 L, Carbon Dioxide 33 H, Anion Gap 10.7, BUN 14, Creatinine 1.00, Estimated Creat Clear 98, Estimated GFR 57 L, Est GFR ( Amer) 69, Glucose 145 H, Calcium 9.7, Total Bilirubin 0.9, AST 34, ALT 32, Alkaline Phosphatase 88, Total Protein 7.8, Albumin 4.4, Globulin 3.4 H, Albumin/Globulin Ratio 1.3, Lipase 90, HCV Ab KELLY w/Rflx PCR Qn Negative, HIV Ag/Ab Combo Qual Negative 06/02/25 21:09 06/02/25 21:09 Orders (Tests/Meds): ED MEDICATIONS Generic Name Dose Route Start Last Admin Trade Name Freq PRN Reason Stop Dose Admin Lisinopril 20 mg 06/03/25 21:40 Lisinopril 20mg Tablet PO 07/03/25 21:39 DAILY BETSY Discontinued Medications Generic Name Dose Route Start Last Admin Trade Name Flex PRN Reason Stop Dose Admin Sodium Chloride 500 mls @ 999 mls/hr 06/02/25 21:17 06/02/25 21:27 Sod Chlor 0.9% 1000ml Bag IV 06/02/25 21:47 999 mls/hr .Q31M ONE Administration Iopamidol 75 ml 06/02/25 21:45 06/02/25 21:50 Iopamidol-370 (76%);100ml Bottle IV 06/02/25 21:46 75 ml ONCE ONE Administration Lisinopril 20 mg 06/03/25 21:36 Lisinopril 20mg Tablet PO 07/03/25 21:35 DAILY BETSY Morphine Sulfate 4 mg 06/02/25 21:17 06/02/25 21:27 Morphine 4mg/Ml Syringe IV 06/02/25 21:18 4 mg ONCE ONE Administration Ondansetron HCl 4 mg 06/02/25 21:17 06/02/25 21:27 Ondansetron 4mg/2ml Vial IV 06/02/25 21:18 4 mg ONCE ONE Administration Sodium Chloride 10 ml 06/02/25 21:45 06/02/25 21:50 Sodium Chloride 0.9% 10ml Syr (Rad Only) IV 06/02/25 21:46 10 ml ONCE ONE Administration ORDERS Category Date Time Status CT abdomen pelvis w con Stat Cat Scan 06/02/25 21:17 Completed CBC w/Auto Diff [Complete Blood Count Auto Diff] Stat Lab 06/02/25 21:09 Completed CMP [Comprehensive Metabolic Panel] Stat Lab 06/02/25 21:09 Completed HIV Combo Stat Lab 06/02/25 21:09 Completed Hepatitis C Ab Qual. W/ RFX Stat Lab 06/02/25 21:09 Completed Lipase Stat Lab 06/02/25 21:09 Completed UA [Urinalysis and Microscopic] Stat Lab 06/02/25 21:04 Completed Urine , HCG Qual. Stat Lab 06/02/25 21:04 Completed Medical Decision Narrative: In summary, patient is a 59-year-old female PMHx obesity, hypertension, COPD, fibromyalgia, GERD, history of chest pain, depression, anxiety who presents to the ED for complaints of abdominal pain approximately 4 days ago. Patient states that she was started on Ozempic earlier this week, has not been taking a stool softener with this. She states that the abdominal pain is worsening. She states that she has attempted to take Gas-X, MiraLAX, increase fluid intake without relief of pain. Patient states she has been under a great amount of stress recently at home, does not remember if she took her blood pressure medication today. Upon arrival to the ED she is alert, oriented and cooperative. She has elevated blood pressure, systolic 195. Her physical exam is remarkable for obesity, left upper, left lower and suprapubic abdominal tenderness noted. Abdomen is soft, not distended. Differential diagnosis include mesenteric ischemia, constipation, small bowel obstruction, UTI, sepsis, among others Discussed with patient that we will proceed with labs & CT imaging. Will symptomatically manage with IV fluids, Zofran and morphine. <Ha Osborne MD - Last Filed: 06/02/25 23:21> Vital Signs: 06/02/25 21:08 06/02/25 21:30 06/02/25 22:00 Temperature 97.8 F Temperature Source Oral Pulse Rate 89 85 Pulse Rate [Radial] 90 Respiratory Rate 16 Blood Pressure 165/88 H 140/81 Blood Pressure [Right Arm] 196/90 H Blood Pressure Mean [Right Arm] 125 Blood Pressure Position [Right Arm] Sitting 02 Sat by Pulse Oximetry 97 92 L 92 L Oxygen Delivery Method Room Air 06/02/25 22:30 06/02/25 23:00 Temperature Temperature Source Pulse Rate 88 85 Pulse Rate [Radial] Respiratory Rate Blood Pressure 143/77 H 152/90 H Blood Pressure [Right Arm] Blood Pressure Mean [Right Arm] Blood Pressure Position [Right Arm] 02 Sat by Pulse Oximetry 93 L 97 Oxygen Delivery Method Lab Data Lab results reviewed: Yes I reviewed the patient's lab results. Lab Results 06/02/25 21:04: Urine Color Yellow, Urine Appearance Clear, Urine pH 6.5, Ur Specific Norton 1.015, Urine Protein Negative, Urine Glucose (UA) Negative, Urine Ketones Negative, Urine Blood Negative, Urine Nitrate Negative, Urine Bilirubin Negative, Urine Urobilinogen 0.2, Ur Leukocyte Esterase Negative, Urine RBC Occasional, Urine WBC 3-5, Ur Squamous Epith Cells 10-20, Amorphous Sediment 3+, Urine Bacteria 1+, Urine HCG, Qual Negative 06/02/25 21:09: WBC 9.3, RBC 4.72, Hgb 13.1, Hct 40.9, MCV 86.7, MCH 27.8, MCHC 32.0, RDW 12.9, Plt Count 205, MPV 10.8 H, Neut % (Auto) 65.2, Lymph % (Auto) 27.0, King[place] % (Auto) 5.4, Eos % (Auto) 1.9, Baso % (Auto) 0.3, Neut # (Auto) 6.1, Lymph # (Auto) 2.5, [place] # (Auto) 0.5, Eos # (Auto) 0.2, Baso # (Auto) 0.0, Sodium 137, Potassium 3.7, Chloride 97 L, Carbon Dioxide 33 H, Anion Gap 10.7, BUN 14, Creatinine 1.00, Estimated Creat Clear 98, Estimated GFR 57 L, Est GFR ( Amer) 69, Glucose 145 H, Calcium 9.7, Total Bilirubin 0.9, AST 34, ALT 32, Alkaline Phosphatase 88, Total Protein 7.8, Albumin 4.4, Globulin 3.4 H, Albumin/Globulin Ratio 1.3, Lipase 90, HCV Ab KELLY w/Rflx PCR Qn Negative, HIV Ag/Ab Combo Qual Negative Orders (Tests/Meds): ED MEDICATIONS Generic Name Dose Route Start Last Admin Trade Name Freq PRN Reason Stop Dose Admin Lisinopril 20 mg 06/03/25 21:40 Lisinopril 20mg Tablet PO 07/03/25 21:39 DAILY BETSY Discontinued Medications Generic Name Dose Route Start Last Admin Trade Name Freq PRN Reason Stop Dose Admin Sodium Chloride 500 mls @ 999 mls/hr 06/02/25 21:17 06/02/25 21:27 Sod Chlor 0.9% 1000ml Bag IV 06/02/25 21:47 999 mls/hr .Q31M ONE Administration Iopamidol 75 ml 06/02/25 21:45 06/02/25 21:50 Iopamidol-370 (76%);100ml Bottle IV 06/02/25 21:46 75 ml ONCE ONE Administration Lisinopril 20 mg 06/03/25 21:36 Lisinopril 20mg Tablet PO 07/03/25 21:35 DAILY BETSY Morphine Sulfate 4 mg 06/02/25 21:17 06/02/25 21:27 Morphine 4mg/Ml Syringe IV 06/02/25 21:18 4 mg ONCE ONE Administration Ondansetron HCl 4 mg 06/02/25 21:17 06/02/25 21:27 Ondansetron 4mg/2ml Vial IV 06/02/25 21:18 4 mg ONCE ONE Administration Sodium Chloride 10 ml 06/02/25 21:45 06/02/25 21:50 Sodium Chloride 0.9% 10ml Syr (Rad Only) IV 06/02/25 21:46 10 ml ONCE ONE Administration ORDERS Category Date Time Status CT abdomen pelvis w con Stat Cat Scan 06/02/25 21:17 Completed CBC w/Auto Diff [Complete Blood Count Auto Diff] Stat Lab 06/02/25 21:09 Completed CMP [Comprehensive Metabolic Panel] Stat Lab 06/02/25 21:09 Completed HIV Combo Stat Lab 06/02/25 21:09 Completed Hepatitis C Ab Qual. W/ RFX Stat Lab 06/02/25 21:09 Completed Lipase Stat Lab 06/02/25 21:09 Completed UA [Urinalysis and Microscopic] Stat Lab 06/02/25 21:04 Completed Urine , HCG Qual. Stat Lab 06/02/25 21:04 Completed Medical Decision Narrative: In summary, patient is a 59-year-old female PMHx obesity, hypertension, COPD, fibromyalgia, GERD, history of chest pain, depression, anxiety who presents to the ED for complaints of abdominal pain approximately 4 days ago. Patient states that she was started on Ozempic earlier this week, has not been taking a stool softener with this. She states that the abdominal pain is worsening. She states that she has attempted to take Gas-X, MiraLAX, increase fluid intake without relief of pain. Patient states she has been under a great amount of stress recently at home, does not remember if she took her blood pressure medication today. Upon arrival to the ED she is alert, oriented and cooperative. She has elevated blood pressure, systolic 195. Her physical exam is remarkable for obesity, left upper, left lower and suprapubic abdominal tenderness noted. Abdomen is soft, not distended. Differential diagnosis include mesenteric ischemia, constipation, small bowel obstruction, UTI, sepsis, among others Discussed with patient that we will proceed with labs & CT imaging. Will symptomatically manage with IV fluids, Zofran and morphine. I was consulted by the DONAL, and we discussed the complexity of the problems being addressed. I approved the treatment and management plan for this patient's care in the emergency department, thus performing a substantive portion of the medical decision making. Ha Osborne MD, ROSY, FACEP This is Dr. Osborne I took over from [facility] primarily to follow-up on the patient CT scan. Serial assessments patient is comfortable and no peritonitis. CT scan was performed I personally interpreted which shows uncomplicated diverticulitis without any evidence of an intra-abdominal abscess or perforation. Will manage this outpatient with Augmentin and she will follow-up with either Dr. Farley or referral has been made. She also has already had a previously made appointment with Dr. Santana for next month for colonoscopy and I told her that it is fine to follow-up with him as well. Return precautions emphasized if she has significant worsening of abdominal pain high fevers etc. return to the emergency department. Critical Care <Margaux Paez APRN - Last Filed: 06/02/25 21:31> Critical Care Time Critical Care Time: No
[2025-06-02] MEDS: ONDANSETRON 4MG/2ML VIAL 4 MG IV (21:27)
[2025-06-02] MEDS: 0.9 % SODIUM CHLORIDE 1000ML 500 ML 999 ML IV (21:27)
[2025-06-02] MEDS: MORPHINE 4MG/ML SYRINGE 4 MG IV (21:27)
[2025-06-02 21:31] LABS: Urine Pregnancy, HCG Qual. Negative (Negative)
[2025-06-02 21:31] LABS: Hematocrit 40.9 % (37.0-47.0); Hemoglobin 13.1 g/dL (12.2-16.2); Immature Granulocytes % 0.2 %; Mean Corpuscular HGB Conc 32.0 g/dL (31.8-35.4); Mean Corpuscular Hemoglobin 27.8 pg (27.0-31.2); Mean Corpuscular Volume 86.7 fl (81-99); Nucleated Red Blood Cells % 0 %; Platelet Count 205 K/mm3 (142-424); Red Blood Count 4.72 M/mm3 (4.20-5.40); Red Cell Distribution Width-SD 41.2 fL; White Blood Count 9.3 K/mm3 (4.8-10.8)
[2025-06-02 21:34] LABS: Alanine Aminotransferase 32 U/L (12-78); Albumin Level 4.4 g/dl (3.5-5.0); Albumin/Globulin Ratio 1.3 (1.1-1.8); Alkaline Phosphatase 88 U/L (38-126); Anion Gap 10.7 mEq/L (5-15); Aspartate Amino Transferase 34 U/L (14-36); Bilirubin,Total 0.9 mg/dl (0.2-1.3); Blood Urea Nitrogen 14 mg/dl (7-17); Calcium 9.7 mg/dl (8.4-10.2); Carbon Dioxide 33 mmol/L (22.0-30.0); Chloride 97 mmol/L (98-107); Creatinine Clearance Estimated 98 mL/min (50-200); Creatinine,Serum 1.00 mg/dl (0.52-1.04); Estimated Glomerular Filt Rate 57 ml/min (>60); GFR (African American) 69 ML/MIN (>60); Globulin 3.4 g/dL (1.3-3.2); Glucose 145 mg/dl (74-100); Lipase 90 U/L (23-300); Potassium 3.7 mmoL/L (3.5-5.1); Sodium 137 mmol/L (136-145); Total Protein,Serum 7.8 g/dl (6.3-8.2)
[2025-06-02 21:35] LABS: Amorphous Sediment,Urine 3+ /lpf; Bacteria,Urine 1+ /lpf; RBC,Urine Occasional #/hpf (0-3)
[2025-06-02] MEDS: IOPAMIDOL-370 (76%);100ML BOTTLE 75 ML IV (21:50)
[2025-06-02] MEDS: SODIUM CHLORIDE 0.9% 10ML SYR (RAD ONLY) 10 ML IV (21:50)
--- OUTSIDE RECORDS SUMMARY | 2025-06-02 22:14 | XMS_ITS | CCD ---
Author Organization Unknown Care Team Providers Care Sliver Lapper Name Role Phone Unavailable Primary Care Provider Unavailabl e Unavailable Chronic Care Management Unavaila ble Summary Purpose DataExchange Insurance Providers Payer name Policy type / Coverage type Covered libertarian ID Effective Begin Date Effective End Date [facility] [id number] Unknown Unknown Family History Family History data not found Medication Administered No Medication Administered data Reason For Visit No Reason For Visit data Medical Equipment No Medical Equipment data Advance Directives No Advance Directive data
--- OUTSIDE RECORDS SUMMARY | 2025-06-02 22:14 | XMS_ITS | CCD ---
Author Organization Unknown Care Team Providers Care Sap Basis Administrator Name Role Phone Unavailable Primary Care Provider Unavailabl e Unavailable Chronic Care Management Unavaila ble Summary Purpose DataExchange Insurance Providers Payer name Policy type / Coverage type Covered republican ID Effective Begin Date Effective End Date [facility] [id number] Unknown Unknown Family History Family History data not found Medication Administered No Medication Administered data Reason For Visit No Reason For Visit data Medical Equipment No Medical Equipment data Advance Directives No Advance Directive data
[2025-06-02 22:43] LABS: Hepatitis C Ab Qual. W/ RFX NEGATIVE (Negative)
--- NOTE | 2025-06-02 23:11 | PC.NURSE ---
provider at the bedside
--- NOTE | 2025-06-02 23:37 | PC.NURSE ---
IV discontinued. Catheter tip intact. Bleeding controlled.
== END 2025-06-02 23:41 | disposition home or self-care (01) ==
PROVIDERS: Nurse Practitioner; Emergency Provider Student in an Organized Health Care Education/Training Program; PCP Family Medicine
DX: R10.32 Left lower quadrant pain (principal); K57.32 Diverticulitis of large intestine without perforation or abscess without bleeding; R10.12 Left upper quadrant pain; F17.210 Nicotine dependence, cigarettes, uncomplicated; I10 Essential (primary) hypertension
CPT/HCPCS: 74177; 80053; 81001; 81025; 83690; 85025; 86803; 87389; 96374; 96375; 99285; J2270; J2405; J7030; Q9967

== ENCOUNTER 2025-07-21 12:48 | Outpatient (CLI) | payer MEDICARE, OTHER, SELFPAY ==
[2025-07-21 16:37] LABS: Coronavirus 19, PCR Not Detected (NotDetected); Influenza A, PCR Not Detected (NotDetected); Influenza B, PCR Not Detected (NotDetected)
--- OUTSIDE RECORDS SUMMARY | 2025-07-22 15:19 | XMS_ITS | Clinical Summary ---
Author Organization Healthcare Address [address] [id number] Care Team Providers Care Field Director Name Role Phone Miguel Herron APRN Primary Care Provider +1- [phone] Family History Medical History Relation Name Comments Heart attack Mother Cardiac disorder Other 1 Colon cancer Other 2 Hypertension Other 3 Lung cancer Other 4 Heart attack Other 5 Pancreatic cancer Other 6 Conversions - Other Other 7 Recurren t Guillain-[place] syndrome Pancreatic cancer Sister Relation Name Status [...] Date Last Done Comments [facility]-Depression Screening 1966 [facility]-Infant/Child/Adol SDOH Screenings 1966 [facility]- SDOH Screenings 1984 [...] Vaccine s (1 - Tdap) 11/20/2022 11/19/2022 [id number] Vaccine (3 - season) 2024 04/11/2021, 03/16/2021 [facility]-Influenza Vaccine (#1) 2025 09/05/2016 HPV Vaccines Aged Out No [...] patient's age to complete this topic Insurance [employer] Care Teams Field Director Relationship Specialty Start Date End Date Miguel Herron APRN [address] [place], [place] [id number] [facility] - General 04/14/21
--- OUTSIDE RECORDS SUMMARY | 2025-07-22 16:19 | XMS_ITS | CCD ---
Author Organization Unknown Care Team Providers Care Staple Shear Operator Name Role Phone Unavailable Primary Care Provider Unavailabl e Unavailable Chronic Care Management Unavaila ble Summary Purpose DataExchange Insurance Providers Payer name Policy type / Coverage type Covered green party ID Effective Begin Date Effective End Date [facility] [id number] Unknown Unknown Family History Family History data not found Medication Administered No Medication Administered data Reason For Visit No Reason For Visit data Medical Equipment No Medical Equipment data Advance Directives No Advance Directive data
--- OUTSIDE RECORDS SUMMARY | 2025-07-22 16:19 | XMS_ITS | CCD ---
Author Organization Unknown Care Team Providers Care Casino Manager Name Role Phone Unavailable Primary Care Provider Unavailabl e Unavailable Chronic Care Management Unavaila ble Summary Purpose DataExchange Insurance Providers Payer name Policy type / Coverage type Covered constitution party ID Effective Begin Date Effective End Date [facility] [id number] Unknown Unknown Family History Family History data not found Medication Administered No Medication Administered data Reason For Visit No Reason For Visit data Medical Equipment No Medical Equipment data Advance Directives No Advance Directive data
== END 2025-07-21 23:59 | disposition home or self-care (01) ==
LOC: LAB.DROPOF 07-22 15:18
PROVIDERS: PCP Nurse Practitioner Family; Visit Provider Nurse Practitioner Family
DX: J06.9 Acute upper respiratory infection, unspecified (principal)
CPT/HCPCS: 87631

== ENCOUNTER 2025-09-13 17:19 | Outpatient (CLI) | payer MEDICARE, OTHER, SELFPAY ==
[2025-09-13 20:14] LABS: Alanine Aminotransferase 50 U/L (12-78); Albumin Level 3.9 g/dl (3.5-5.0); Albumin/Globulin Ratio 1.4 (1.1-1.8); Alkaline Phosphatase 120 U/L (38-126); Anion Gap 14.1 mEq/L (5-15); Aspartate Amino Transferase 41 U/L (14-36); Bilirubin,Total 0.6 mg/dl (0.2-1.3); Blood Urea Nitrogen 12 mg/dl (7-17); Calcium 9.1 mg/dl (8.4-10.2); Carbon Dioxide 24 mmol/L (22.0-30.0); Chloride 104 mmol/L (98-107); Cholesterol 166 mg/dl (140-200); Creatinine,Serum 0.70 mg/dl (0.52-1.04); Estimated Glomerular Filt Rate 86 ml/min (>60); GFR (African American) 104 ML/MIN (>60); Globulin 2.7 g/dL (1.3-3.2); Glucose 121 mg/dl (74-100); HDL Cholesterol 26 mg/dl (40-60); Potassium 4.1 mmoL/L (3.5-5.1); Sodium 138 mmol/L (136-145); Total Protein,Serum 6.6 g/dl (6.3-8.2)
[2025-09-13 20:27] LABS: Free T4 (Free Thyroxine) 1.26 ng/dl (0.78-2.19)
[2025-09-13 20:31] LABS: Triglycerides 598 mg/dl (30-150)
[2025-09-13 20:43] LABS: Thyroid Stimulating Hormone 1.56 uIU/mL (0.465-4.68)
--- OUTSIDE RECORDS SUMMARY | 2025-09-14 17:21 | XMS_ITS | Clinical Summary ---
Author Organization Healthcare Address [address] [id number] Care Team Providers Care Adolescent Coordinator Name Role Phone Miguel Herron APRN Primary Care Provider +1- [phone] Family History Medical History Relation Name Comments Heart attack Mother Cardiac disorder Other 1 Colon cancer Other 2 Hypertension Other 3 Lung cancer Other 4 Heart attack Other 5 Pancreatic cancer Other 6 Conversions - Other Other 7 Recurren t Guillain-[place] syndrome Pancreatic cancer Sister Relation Name Status [...] Vaccine s (1 - Tdap) 11/20/2022 11/19/2022 [id number] Vaccine (3 - season) 2025 04/11/2021, 03/16/2021 [facility]-Influenza Vaccine (#1) 2025 09/05/2016 [...] Insurance [employer] Care Teams Adolescent Coordinator Relationship Specialty Start Date End Date Miguel Herron APRN [address] [place], [place] [phone] [facility] - General 04/14/21
--- OUTSIDE RECORDS SUMMARY | 2025-09-14 18:21 | XMS_ITS | CCD ---
Author Organization Unknown Care Team Providers Care Batterboard Setter Name Role Phone Unavailable Primary Care Provider Unavailabl e Unavailable Chronic Care Management Unavaila ble Summary Purpose DataExchange Insurance Providers Payer name Policy type / Coverage type Covered constitution party ID Effective Begin Date Effective End Date [facility] [id number] Unknown Unknown Family History Family History data not found Medication Administered No Medication Administered data Reason For Visit No Reason For Visit data Medical Equipment No Medical Equipment data Advance Directives No Advance Directive data
--- OUTSIDE RECORDS SUMMARY | 2025-09-14 18:21 | XMS_ITS | CCD ---
Author Organization Unknown Care Team Providers Care Block Captain Name Role Phone Unavailable Primary Care Provider Unavailabl e Unavailable Chronic Care Management Unavaila ble Summary Purpose DataExchange Insurance Providers Payer name Policy type / Coverage type Covered republican ID Effective Begin Date Effective End Date [facility] [id number] Unknown Unknown Family History Family History data not found Medication Administered No Medication Administered data Reason For Visit No Reason For Visit data Medical Equipment No Medical Equipment data Advance Directives No Advance Directive data
== END 2025-09-13 23:59 | disposition home or self-care (01) ==
LOC: LAB.DROPOF 09-14 17:20
PROVIDERS: PCP Family Medicine; Visit Provider Family Medicine
DX: E11.69 Type 2 diabetes mellitus with other specified complication (principal); E66.9 Obesity, unspecified; R79.89 Other specified abnormal findings of blood chemistry; I10 Essential (primary) hypertension
CPT/HCPCS: 80053; 80061; 82043; 82570; 84439; 84443

== ENCOUNTER 2025-09-16 11:44 | Day surgery (SDC) | payer MEDICARE, OTHER, SELFPAY ==
[2025-09-09 14:47] VITALS: BMI 33.3
--- NOTE | 2025-09-15 16:49 | P.HP_ITS ---
History of Present Illness *Admission Date: 09/16/25 *History of present illness: Mrs. Buenrostro is a 60-year-old female who is here for diagnostic EGD and colonoscopy. She did start Ozempic/semaglutide at the end of May 2025 and developed severe constipation and abdominal pain that lasted for a week or 2. She went to the ED and was diagnosed with uncomplicated diverticulitis. She does report postprandial bowel urgency and diarrhea. She has persistent nausea and intermittent vomiting. She has been on omeprazole and Reglan. She continues to have breakthrough heartburn and reflux with a lot of bloating, belching and gassiness. She does report mucus in her stool. Her EGD with [place] in April 2021 revealed nonerosive GERD with mild esophageal dysmotility and small hiatal hernia. She had moderate linear reactive gastropathy related to bile reflux. Her colonoscopy with Dr. Bari Santana in 2021 revealed a single polyp (tubular adenoma) which was removed. Her mother had colon cancer in her 70s. The examination is deemed medically necessary for diagnostic EGD and colonoscopy. The patient has been seen, interviewed and examined prior to the procedure by both myself and the anesthesia provider. [facility] Disclaimer: The information contained in this section may have been updated after the patient was seen, as this information can be updated by other users. Medical History Rosacea Diverticulitis Abnormal chest CT Abdominal pain Encounter for screening for malignant neoplasm of lung Smoking greater than 30 pack years Acute interstitial pneumonia FH: early menopause Laceration of thumb Insomnia Recurrent major depression resistant to treatment Thyroid enlarged Hx of malignant melanoma Myocardial bridge Atypical angina Abnormal cardiovascular stress test Encounter for pre-operative cardiovascular clearance Exposure to COVID-19 virus Claudication Edema Depression Acute bronchitis Chronic headaches Viral upper respiratory infection Headache Vitamin D deficiency Fibromyalgia Lightheaded Fatigue Tobacco abuse COPD (chronic obstructive pulmonary disease) HTN (hypertension) Chest pain Surgical History Hx of total hysterectomy History of appendectomy History of ankle surgery History of colonoscopy Family History Other Family history of cancer Family history of hypertension Social History (Updated 09/16/25 @ 12:06 by Corazon Herron RN) Smoking Status: Current every day smoker tobacco type: cigarettes packs per day: 2 second hand exposure: Yes alcohol intake: never substance use type: denies use current occupational status: disabled Travel in the last 8 weeks?: None household members: family housing: house number of children: 2 current occupational exposures/hazards: No caffeine: Yes Have you lived/traveled outside [place] in past 30 days?: No Contact w/someone who lives/traveled outside US past 30 days?: No Exposure to someone with infectious disease in past 14 days?: No Do you have a fever (greater than 100.4 F or 38 C)?: No Have you tested positive for COVID-19?: No Exposed to someone with COVID-19 in past 14 days?: No Do you have a sore throat?: No Do you have a cough?: No Do you have any weakness?: No Are you experiencing any nausea/vomitting?: No Do you have any diarrhea?: No Are you experiencing any unusual bleeding?: No Do you have any muscle aches/pain?: No Do you have any abdominal pain?: No Are you experiencing loss of taste or smell?: No Other Medical History Have you received the Flu Vaccine for this season: No Have you received the Pneumonia Vaccine: No Review of Systems Review of Systems Review of systems (narrative): Negative *Cardiovascular Comments: Negative *Gastrointestinal Comments: Negative *Genitourinary Comments: Negative *Musculoskeletal Comments: Negative *Neurologic Comments: Negative Meds Home Medications and Allergies Home Medications ?Medication ?Instructions ?Recorded ?Confirmed ?Type propranolol 60 mg capsule,24 See Rx Instructions .Rout e 01/07/25 09/16/25 Rx hr,extended release .COMPLEX #30 caps aspirin 81 mg tablet,delayed 81 mg PO DAILY #90 tabs 0 04/09/25 09/16/25 Rx release furosemide 40 mg tablet See Rx Instructions .Route 0 04/09/25 09/16/25 Rx .COMPLEX #90 tabs fluticasone propionate 50 1 spray intranasal DAILY PRN 05/21/25 09/16/25 Rx mcg/actuation nasal allergy symptoms #16 grams spray,suspension (Flonase Allergy Relief) blood sugar diagnostic (Accu-Chek #10 ea 05/28/2509/01 Rx Janna Plus test strips) blood-glucose meter (Accu-Chek #1 ea 05/28/25 09/16/25 Rx Guide Glucose Meter) lancets (Accu-Chek Softclix #100 ea 05/28/25 09/16/25 Rx Lancets) lisinopril 20 mg tablet See Rx Instructions .Route 0 06/21/25 09/16/25 Rx .COMPLEX #90 tabs metoclopramide HCl 5 mg tablet 5 mg PO QAC #90 tabs 09/16/25 Rx (Reglan) atorvastatin 40 mg tablet See Rx Instructions .Route 0 07/20/25 09/16/25 Rx .COMPLEX #90 tabs omeprazole 40 mg capsule,delayed See Rx Instructions . Route 08/12/25 09/16/25 Rx release .COMPLEX #90 caps glipizide 5 mg tablet See Rx Instructions .Route 0 08/30/25 09/16/25 Rx .COMPLEX #30 tabs hydroxyzine pamoate 25 mg capsule See Rx Instructions .Route 08/30/25 09/16/25 Rx .COMPLEX #60 caps sodium,potassium,mag sulfates 17.5 See Rx Instructions PO .COMPLEX 09/03/25 09/16/25 Rx gram-3.13 gram-1.6 gram oral soln #354 mL (Suprep Bowel Prep Kit) metronidazole 1 % topical gel 1 applic topical HS #60 grams 09/13/25 09/16/25 Rx (Metrogel) buspirone 5 mg tablet 5 mg PO BID #60 tabs 5 09/16/25 Rx escitalopram oxalate 10 mg tablet 10 mg PO DAILY #30 t abs 09/14/25 09/16/25 Rx New Prescriptions to Start Prescriptions: Allergies Allergy/AdvReac Type Severity Reaction Status Date / Time ciprofloxacin (From CIPRO) Allergy Unknown HIVES/RASH Verified 09/16/25 12:18 Exam *Routine HEENT Exam Head: Present normocephalic Eye: Present EOMI and PERRL ENT: Present mucous membranes moist *Routine Neck Exam Neck: Present supple *Routine Respiratory Exam Respiratory: Present CTA bilaterally *Routine Cardiovascular Exam Cardiovascular: Present RRR *Routine Abdominal Exam Abdominal: Present soft and normoactive bowel sounds; Absent tenderness *Routine Rectal Exam Rectal:: deferred *Routine Genitalia Exam Genitalia:: deferred *Routine Extremities Exam Extremities: Absent cyanosis, clubbing or edema *Routine Skin Exam Skin: Present warm; Absent rash *Routine Neurological Exam Neurological: Present alert and oriented X3 Assessment and Plan *Assessment and plan (1) Change in bowel habit: Status: Acute Category: Medical Code(s): R19.4 - Change in bowel habit (2) Nausea & vomiting: Status: Acute Category: Medical Code(s): R11.2 - Nausea with vomiting, unspecified (3) Bloating: Status: Acute Category: Medical Code(s): R14.0 - Abdominal distension (gaseous) (4) Belching: Status: Acute Category: Medical Code(s): R14.2 - Eructation (5) Generalized abdominal pain: Status: Acute Category: Medical Code(s): R10.84 - Generalized abdominal pain (6) GERD (gastroesophageal reflux disease): Status: Acute Category: Medical Code(s): K21.9 - Gastro-esophageal reflux disease without esophagitis (7) Heartburn: Status: Acute Category: Medical Code(s): R12 - Heartburn (8) Family history of colon cancer in mother: Status: Acute Category: Medical Code(s): Z80.0 - Family history of malignant neoplasm of digestive organs (9) Personal history of adenomatous and serrated colon polyps: Status: Acute Category: Medical Code(s): Z86.0101 - Personal history of adenomatous and serrated colon polyps Plan A/P: 1. Heartburn, reflux, belching, nausea and intermittent vomiting with dyspepsia for upper endoscopy, change in bowel habits with diarrhea/bowel urgency and generalized abdominal pain for colonoscopy is the preprocedural diagnosis. The patient also has a family history of colon cancer (mother in her 70s) and a history of adenomatous polyps. The patient will be anesthetized/sedated using MAC sedation. The patient has been seen and examined. Cardiac and lung assessment prior to the examination is stable. Proceed with planned diagnostic EGD and colonoscopy.
--- NOTE | 2025-09-16 07:17 | P.PCN_ITS ---
[facility] Procedure Note Date: 09/16/25 Time: 13:56 Procedure Note:: Colonoscopy Procedure Report: Colonoscopy with cold snare polypectomy Endoscopist: Mohsen Farley II, MD Referring physician: Juan José David MD Date of Procedure: September 16, 2025 Equipment: Olympus [id number] adult colonoscope Sedation: MAC sedation Indication: Mrs. Buenrostro is a 60-year-old female who is here for diagnostic EGD and colonoscopy. She did start Ozempic/semaglutide at the end of May 2025 and developed severe constipation and abdominal pain that lasted for a week or 2. She went to the ED and was diagnosed with uncomplicated diverticulitis. She does report postprandial bowel urgency and diarrhea. She continues to alternate between constipation and diarrhea. She has persistent nausea and intermittent vomiting. She has been on omeprazole and Reglan. She continues to have breakthrough heartburn and reflux with a lot of bloating, belching and gassiness. She does get intermittent nausea. She continues to have abdominal pain in the epigastrium. She does report mucus in her stool. Her EGD with me in April 2021 revealed nonerosive GERD with mild esophageal dysmotility and small hiatal hernia. She had moderate linear reactive gastropathy related to bile reflux. Her colonoscopy with Dr. Bari Santana in 2021 revealed a single polyp (tubular adenoma) which was removed. Her mother had colon cancer in her late 70s. The examination is deemed medically necessary for diagnostic EGD and colonoscopy. Procedure: Prior to the procedure, a history and physical exam was performed, and patient's medications and allergies were reviewed. The risks, benefits and alternatives of the sedation and procedure were discussed with the patient. All questions were answered and informed consent was obtained. The patient was brought to the procedure room. Patient identification and proposed procedure were verified by the physician and the nurse. The patient was placed in a left lateral decubitus position and the scope was passed under direct vision. Throughout the procedure, the patient's blood pressure, pulse, and oxygen saturations were monitored continuously. The colonoscopy was accomplished without difficulty. The patient tolerated the procedure well. Findings: On digital rectal examination there was normal rectal tone. There were no external hemorrhoids. The colonoscope was introduced through the anal canal to the rectum and advanced to the cecum. The ileocecal valve and appendiceal orifice were identified. The scope was advanced a short distance into the ileum which appeared grossly normal. The scope was then withdrawn into the colon. The cecum, ascending and transverse colon and mucosa were grossly normal. There were scattered diverticuli throughout the descending and sigmoid colon (LEFT colon). There was a single sigmoid polyp (5 mm) that appeared hyperplastic and was removed via cold snare polypectomy. The polyp was removed but not retrieved. The rectum itself was normal. Upon retroflexion within the rectum there were grade 1-2 internal hemorrhoids. The preparation was excellent throughout with Leeper Preparation Score of 9. The cecal time was 12 minutes. Impression: 1. Diminutive hyperplastic sigmoid polyp 2. Left-sided diverticulosis 3. Grade 1-2 internal hemorrhoids Plan: The patient will not require screening/surveillance colonoscopy again for 10 years. 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
--- NOTE | 2025-09-16 07:17 | P.PCN_ITS ---
[facility] Procedure Note Date: 09/16/25 Time: 13:43 Procedure Note:: Upper Endoscopy Procedure Report: Esophagogastroduodenoscopy with cold biopsies Endoscopost: Mohsen Farley II, MD Referring Physician: Juan José David MD Date of Procedure: September 16, 2025 Equipment: Olympus [id number] standard upper endoscope Sedation: MAC sedation Indications: Mrs. Buenrostro is a 60-year-old female who is here for diagnostic EGD and colonoscopy. She did start Ozempic/semaglutide at the end of May 2025 and developed severe constipation and abdominal pain that lasted for a week or 2. She went to the ED and was diagnosed with uncomplicated diverticulitis. She does report postprandial bowel urgency and diarrhea. She continues to alternate between constipation and diarrhea. She has persistent nausea and intermittent vomiting. She has been on omeprazole and Reglan. She continues to have calvin akthrough heartburn and reflux with a lot of bloating, belching and gassiness. She does get intermittent nausea. She continues to have abdominal pain in the epigastrium. She does report mucus in her stool. Her EGD with me in April 2021 revealed nonerosive GERD with mild esophageal dysmotility and small hiatal hernia. She had moderate linear reactive gastropathy related to bile reflux. Her colonoscopy with Dr. Bari Santana in 2021 revealed a single polyp (tubular adenoma) which was removed. Her mother had colon cancer in her late 70s. The examination is deemed medically necessary for diagnostic EGD and colonoscopy. Procedure: Prior to the procedure, a history and physical exam was performed, and patient's medications and allergies were reviewed. The risks, benefits and alternatives of the sedation and procedure were discussed with the patient. All questions were answered and informed consent was obtained. The patient was brought to the procedure room. Patient identification and proposed procedure were verified by the physician and the nurse. The patient was placed in a left lateral decubitus position and the scope was passed under direct vision. Throughout the proced ure, the patient's blood pressure, pulse, and oxygen saturations were monitored continuously. The upper GI endoscopy was accomplished without difficulty. The patient tolerated the procedure well. Findings: The scope was passed directly into the upper esophagus and advanced to the third portion of the duodenum. The post bulbar duodenum, ampulla and duodenal bulb were normal with normal mucosa and conniventes. 2 cold biopsies were taken from the second portion of the duodenum for the disaccharidase assay. The scope was withdrawn through a normal duodenal bulb and pylorus into the stomach. There was moderate bile reflux with moderate linear reactive gastropathy of the antrum and body of the stomach. The fundus of the stomach was normal. Upon retroflexion there was a small 1 to 2 cm hiatal hernia. Cold biopsies were taken from the antrum. The scope was then withdrawn into the esophagus. There was no evidence of reflux esophagitis or Aponte's. There were tertiary contractions and evidence of mild esophageal dysmotility. The remainder of the esophageal mucosa was normal. Impression: 1. Bile reflux with moderate linear reactive gastropathy 2. Nonerosive GERD with mild esophageal dysmotility and small 1 to 2 cm hiatal hernia Plan: The patient does have functional dyspepsia and functional GERD. Most of her symptoms of dyspepsia and GERD are related to and driven by lower intestinal gas pressure gradients/high gas pressure buildup resulting in backflow of bile and peptic fluid from the duodenum into the stomach (duodenal reflux). This gas production (carbon dioxide, hydrogen, methane, etc.) from the lower intestinal tract is the byproduct of colonic bacterial fermentation. This colonic fermentation occurs when there is more carbohydrate (dietary starches, sugars and high residue plant fiber) substrate that does not get digested (in the middle or small intestine) or occurs when there is colonic fecal buildup and colonic bacterial overgrowth. This indeed leads to bloating and the gas pressure buildup with gas pressure gradients that do drive backflow and dyspepsia. We will discuss treatment options. I will proceed with colonoscopy.
[2025-09-16 12:04] VITALS: BP 177/91; PULSE 84; RESP 16; TEMP 36.3; O2SAT 94; BMI 33.3
[2025-09-16] MEDS: LACTATED RINGERS 1000ML 1,000 ML 50 ML IV (12:21)
[2025-09-16 14:00] VITALS: BP 135/78; PULSE 85; RESP 20; TEMP 36.2; O2SAT 97
[2025-09-16 14:10] VITALS: BP 142/76; PULSE 86; O2SAT 96
[2025-09-16 14:20] VITALS: BP 160/84; PULSE 90; O2SAT 96
[2025-09-16 14:30] VITALS: BP 137/91; PULSE 90; O2SAT 98
[2025-09-17 02:34] LABS: POC Glucose,Bedside 119 gm/dL (70-110)
[2025-09-22 18:39] LABS: Interpretation Notes (.); Lactase 28.55 (>/= 14.0); Maltase 312.62 (>/= 110.0); Palatinase 22.48 (>/= 8.5); Reference Notes (.); Sucrase 87.78 (>/= 25.0)
== END 2025-09-16 14:30 | disposition home or self-care (01) ==
PROVIDERS: PCP Family Medicine; Visit Provider Internal Medicine Gastroenterology
PROC: 0DJ08ZZ Inspection of Upper Intestinal Tract, Via Natural or Artificial Opening Endoscopic (ICD-10-PCS; CPT 45378; principal; 2025-09-16 13:30)
DX: K29.50 Unspecified chronic gastritis without bleeding (principal); K57.30 Diverticulosis of large intestine without perforation or abscess without bleeding; K64.0 First degree hemorrhoids; K64.1 Second degree hemorrhoids; K31.89 Other diseases of stomach and duodenum; K22.4 Dyskinesia of esophagus; K44.9 Diaphragmatic hernia without obstruction or gangrene; D12.5 Benign neoplasm of sigmoid colon; K21.9 Gastro-esophageal reflux disease without esophagitis; F17.210 Nicotine dependence, cigarettes, uncomplicated; I10 Essential (primary) hypertension; F32.A Depression, unspecified; Z88.1 Allergy status to other antibiotic agents; Z79.82 Long term (current) use of aspirin; Z80.0 Family history of malignant neoplasm of digestive organs; Z86.0101 Personal history of adenomatous and serrated colon polyps
CPT/HCPCS: 43239; 45385; 82657; 82962; 88305; J2003; J2704; J7120

== ENCOUNTER 2025-09-22 07:10 | Outpatient (CLI) | payer MEDICARE, OTHER, SELFPAY ==
--- OUTSIDE RECORDS SUMMARY | 2025-09-22 07:12 | XMS_ITS | Clinical Summary ---
Author Organization Healthcare Address [address] [id number] Care Team Providers Care Urinalysis Technician Name Role Phone Miguel Herron APRN Primary Care Provider +1- [phone] Family History Medical History Relation Name Comments Heart attack Mother Cardiac disorder Other 1 Colon cancer Other 2 Hypertension Other 3 Lung cancer Other 4 Heart attack Other 5 Pancreatic cancer Other 6 Conversions - Other Other 7 Recurren t Guillain-[place] syndrome Pancreatic cancer Sister Relation Name Status [...] Vaccine s (1 - Tdap) 11/20/2022 11/19/2022 [id number] Vaccine (3 - season) 2025 04/11/2021, 03/16/2021 [...] Insurance [employer] MEDICA[employer] Care Teams Urinalysis Technician Relationship Specialty Start Date End Date Miguel Herron APRN [address] [place], [place] [id number] [facility] - General 04/14/21
--- NOTE | 2025-09-22 07:30 | CT_ITS ---
FINAL REPORT CLINICAL HISTORY: lung cancer screening current smoker 1ppd x45 years COMPARISON: 09/11/2024 FINDINGS: CT CHEST LOW DOSE SCREENING HISTORY: Screening exam for lung cancer. DOSE: CTDI vol: 2.90 mGy, DLP: 91.16 mGy*cm TECHNIQUE: Axial CT without IV contrast administration using low dose protocol. This study was performed with techniques to keep radiation doses as low as reasonably achievable, (ALARA). Individualized dose reduction techniques using automated exposure control or adjustment of mA and/or kV according to the patient's size were employed. No acute lung disease is present. There is a stable 5 mm nodule in the posterior left upper lobe on image 19 of series 3. There is a 4 mm subpleural nodule in the superior segment of the right lower lobe on image 36, unchanged. There is evidence of old calcified granulomatous disease. Diffuse interstitial prominence is identified. No pleural or pericardial effusion is seen. No adenopathy or mass lesion is present. IMPRESSION: No evidence of lung cancer LUNG RADS CATEGORY 2 RECOMMENDATION: 12 month LDCT follow up Reviewed, Interpreted and Dictated by Polo Farmer MD Transcribed by Riya Serrato Authenticated and [facility]
--- OUTSIDE RECORDS SUMMARY | 2025-09-22 08:11 | XMS_ITS | CCD ---
Author Organization Unknown Care Team Providers Care Professional Services Manager Name Role Phone Unavailable Primary Care Provider Unavailabl e Unavailable Chronic Care Management Unavaila ble Summary Purpose DataExchange Insurance Providers Payer name Policy type / Coverage type Covered libertarian ID Effective Begin Date Effective End Date [facility] [id number] Unknown Unknown Family History Family History data not found Medication Administered No Medication Administered data Reason For Visit No Reason For Visit data Medical Equipment No Medical Equipment data Advance Directives No Advance Directive data
== END 2025-09-22 23:59 | disposition home or self-care (01) ==
LOC: RAD 07:10
PROVIDERS: PCP Family Medicine; Visit Provider Internal Medicine Pulmonary Disease
DX: Z12.2 Encounter for screening for malignant neoplasm of respiratory organs (principal); F17.210 Nicotine dependence, cigarettes, uncomplicated; R91.8 Other nonspecific abnormal finding of lung field; J84.10 Pulmonary fibrosis, unspecified
CPT/HCPCS: 71271; 80053; 80061; 82043; 82570; 84439; 84443